=== PATIENT | male | born 1960 | race Caucasian/White ===

== ENCOUNTER → 2018-11-26 | Outpatient (CLI) | payer OTHER ==
[2018-11-26 15:59] LABS: HCT 44.8 % (39.0-53.0); HGB 14.7 gm/dL (13.0-17.5); MCH 29.6 pg (25.0-35.0); MCHC 32.8 g/dL (31.0-37.0); MCV 90.3 fL (80.0-100.0); Mean Platelet Volume 8.1; Platelet Count 225 k/uL (150-450); RBC 4.96 m/uL (4.30-5.90); RDW 14.1 % (11.5-15.5); WBC 10.2 k/uL (3.8-10.6)
[2018-11-26 16:05] LABS: ALT 23 U/L (21-72); AST 26 U/L (17-59); Albumin 4.7 g/dL (3.5-5.0); Alkaline Phosphatase 74 U/L (38-126); Anion Gap 9 mmol/L; Blood Urea Nitrogen 17 mg/dL (9-20); Carbon Dioxide 25 mmol/L (22-30); Chloride 108 mmol/L (98-107); Glucose 118 mg/dL (74-99); Potassium 4.3 mmol/L (3.5-5.1); Sodium 142 mmol/L (137-145); Total Bilirubin 0.3 mg/dL (0.2-1.3); Total Protein 7.8 g/dL (6.3-8.2)
--- NOTE | 2018-11-26 20:35 | CT ---
EXAMINATION TYPE: CT abdomen pelvis w con DATE OF EXAM: 11/26/2018 COMPARISON: NONE HISTORY: 58 year-old male abdominal distention and left lower quadrant pain. TECHNIQUE: Contiguous axial scanning of the abdomen and pelvis following administration of 100 ml Iso serenity 300 IV contrast. Delayed images through the kidneys and coronal/sagittal reconstructions perform ed. CT DLP: 1261 mGycm Automated exposure control for dose reduction was used. FINDINGS: Heart normal size without pericardial effusion. Mild dependent atelectasis in the lower lungs without pleural effusion. Tiny hiatal hernia. Liver enlarged at 20.0 cm with slightly low attenuation suggesting fatty infiltration. No focal liver lesion or biliary ductal dilatation. Portal venous system is patent. Gallbladder, adrenal glands, kidneys, spleen with tiny anterior splenule, and pancreas appear within normal limits. Moderate atherosclerotic calcifications within the infrarenal abdominal aorta and iliac arteries with out aneurysm. No dilated small bowel, free fluid, or free air. No mesenteric or retroperitoneal lymphadenopathy. Oral contrast has progressed to the upper descending colon. There is left hemicolonic diverticulosis. Focal pericolonic fat stranding centered at a lower descending colonic diverticula, refer to axial i mage 55 and coronal image 58. Prior ventral abdominal wall mesh repair along the lower abdomen and pelvis with coils demonstrated. Bladder urine distended. Prostate gland measures 5.0 cm wide. Pelvic phleboliths on the left. No abno rmal fluid collection in the pelvis or pelvic lymphadenopathy. Bones: Mild degenerative changes at the hips. There is right L5 hemisacralization with the sacrum and facet arthropathy in the lower lumbar spine. Degenerative disc disease L4-L5 with disc bulge. IMPRESSION: 1. LEFT HEMICOLECTOMY DIVERTICULOSIS WITH MILD ACUTE DIVERTICULITIS ALONG THE LOWER DESCENDING COLON. NO ABSCESS OR FREE AIR. 2. HEPATOMEGALY (20.0 CM) WITH SLIGHTLY LOW LIVER DENSITY SUGGESTING SOME DEGREE OF FATTY INFILTRATIO N. 3. TINY HIATAL HERNIA. A Mcwilliams level critical message alert has been initiated for Judith Clemons MD via the [facility] Results System on 11/26/2018 8:32 PM. This message alert has been sent to [facility] Chance via the preferences provided by the clinician for the receipt of Radiology Critical Findings. [facility] ID [id number].
== END | disposition home or self-care (01) ==
LOC: RADCTMAIN 14:54
PROVIDERS: ATTEND Internal Medicine Gastroenterology
DX: K57.32 Diverticulitis of large intestine without perforation or abscess without bleeding (principal); K57.30 Diverticulosis of large intestine without perforation or abscess without bleeding; K44.9 Diaphragmatic hernia without obstruction or gangrene; R16.0 Hepatomegaly, not elsewhere classified; K70.30 Alcoholic cirrhosis of liver without ascites; Z90.49 Acquired absence of other specified parts of digestive tract
CPT/HCPCS: 80053; 85027; 82105; 74177; Q9967

== ENCOUNTER 2020-10-06 22:00 | Emergency (ER) | payer OTHER ==
--- NOTE | 2020-10-06 23:01 | ED ---
Psych HPI - General Chief Complaint: Psychiatric Symptoms Stated Complaint: Mental health Time Seen by Provider: 10/06/20 22:36 Source: patient, police Mode of arrival: ambulatory - History of Present Illness Initial Comments: Patient's 60-year-old man who reportedly phoned police tonight and told him that he was depressed and that he wanted to donate his organs. Patient states he has been feeling suicidal for many years intermittently. States that he had been drinking tonight. MD Complaint: suicidal ideation, feels depressed -: year(s) Associated Psychiatric Symptoms: depression, suicidal ideation History of same: Yes Quality: constant Improves With: none Worsens With: none Context: recent alcohol abuse Associated Symptoms: denies other symptoms - Related Data Allergies Allergy/AdvReac Type Severity Reaction Status Date / Time No Known Allergies Allergy Verified 10/06/20 22:15 Review of Systems ROS Statement: Those systems with pertinent positive or pertinent negative responses have been documented in the HPI. ROS Other: All systems not noted in ROS Statement are negative. Constitutional: Denies: fever, chills Respiratory: Denies: cough, dyspnea Cardiovascular: Denies: chest pain, edema Gastrointestinal: Denies: abdominal pain, vomiting, diarrhea Genitourinary: Denies: dysuria, hematuria Musculoskeletal: Denies: back pain Skin: Denies: rash Neurological: Denies: headache, weakness, numbness Psychiatric: Reports: depression, suicidal thoughts. Denies: auditory hallucinations, visual hallucinations, homicidal thoughts Past Medical History Past Medical History: CVA/TIA, Skin Disorder History of Any Multi-Drug Resistant Organisms: None Reported Past Surgical History: Hernia Repair Past Psychological History: Depression Smoking Status: Current every day smoker Past Alcohol Use History: Daily Past Drug Use History: None Reported General Exam Limitations: no limitations General appearance: alert, in no apparent distress Head exam: Present: atraumatic, normocephalic Respiratory exam: Present: normal lung sounds bilaterally. Absent: respiratory distress, wheezes, rales, rhonchi, stridor Cardiovascular Exam: Present: regular rate, normal rhythm, normal heart sounds. Absent: systolic murmur, diastolic murmur, rubs, gallop GI/Abdominal exam: Present: soft. Absent: distended, tenderness, guarding Extremities exam: Present: normal inspection, normal capillary refill. Absent: pedal edema, calf tenderness Neurological exam: Present: alert Psychiatric exam: Present: depressed, suicidal ideation. Absent: agitated, anxious, flat affect, manic, homicidal ideation Skin exam: Present: warm, dry, intact, normal color. Absent: rash Course Vital Signs 10/06/20 22:10 Temperature 98.0 F Pulse Rate 96 Respiratory 18 Rate Blood Pressure 130/76 O2 Sat by Pulse 98 Oximetry Disposition Clinical Impression: Mood disorder Disposition: HOME SELF-CARE Condition: Good Instructions (If sedation given, give patient instructions): Mood Disorders (ED ) Is patient prescribed a controlled substance at d/c from ED?: No Referrals: None,Stated [Primary Care Provider] - 1-2 days
[2020-10-07 03:28] VITALS: BP 133/78; PULSE 103; RESP 16; TEMP 98.8
== END 2020-10-07 03:28 | disposition home or self-care (01) ==
LOC: EC 22:00
DX: F32.9 Major depressive disorder, single episode, unspecified (principal); R45.851 Suicidal ideations; F17.200 Nicotine dependence, unspecified, uncomplicated
CPT/HCPCS: 82075; 99285

== ENCOUNTER 2020-10-10 18:46 | Inpatient (IN) | payer MEDICAID, OTHER ==
--- NOTE | 2020-10-10 19:18 | ED ---
General Adult HPI - General Chief complaint: Psychiatric Symptoms Stated complaint: EPS eval Time Seen by Provider: 10/10/20 19:04 Source: patient, police Mode of arrival: ambulatory Limitations: no limitations - History of Present Illness Initial comments: 60-year-old male with a past medical history of CVA presents to the emergency room for suicidal thoughts. According to [employer] patient was kicked out of the residential last night. He was sleeping in the park at night yesterday. Patient states today his depression kicked in and he felt suicidal. He states that he called his mother and was going to jump into the river to kill himself. His mother called the police [place] Patient admits he did say this and does currently feel suicidal.Patient has no other complaints at this time including shortness of breath, chest pain, abdominal pain, nausea or vomiting, headache, or visual changes. - Related Data Allergies Allergy/AdvReac Type Severity Reaction Status Date / Time No Known Allergies Allergy Verified 10/10/20 18:59 Review of Systems ROS Statement: Those systems with pertinent positive or pertinent negative responses have been documented in the HPI. ROS Other: All systems not noted in ROS Statement are negative. Past Medical History Past Medical History: CVA/TIA, Skin Disorder History of Any Multi-Drug Resistant Organisms: None Reported Past Surgical History: Hernia Repair Past Psychological History: Depression Smoking Status: Current every day smoker Past Alcohol Use History: Daily Past Drug Use History: None Reported General Exam Limitations: no limitations General appearance: alert, in no apparent distress Head exam: Present: atraumatic, normocephalic, normal inspection Eye exam: Present: normal appearance, PERRL, EOMI. Absent: scleral icterus, conjunctival injection, periorbital swelling ENT exam: Present: normal exam, mucous membranes moist Neck exam: Present: normal inspection, full ROM. Absent: tenderness, meningismus, lymphadenopathy Respiratory exam: Present: normal lung sounds bilaterally. Absent: respiratory distress, wheezes, rales, rhonchi, stridor Cardiovascular Exam: Present: regular rate, normal rhythm, normal heart sounds. Absent: systolic murmur, diastolic murmur, rubs, gallop, clicks GI/Abdominal exam: Present: soft, normal bowel sounds. Absent: distended, tenderness, guarding, rebound, rigid Psychiatric exam: Present: depressed, suicidal ideation. Absent: homicidal ideation Course Vital Signs 10/10/20 18:55 Temperature 98.5 F Pulse Rate 68 Respiratory 18 Rate Blood Pressure 135/82 O2 Sat by Pulse 100 Oximetry Medical Decision Making - Medical Decision Making Patient will be admitted, agrees to sign in. - Lab Data Lab Results 10/10/20 10/10/20 Range/Units 19:36 20:10 Urine Opiates Screen Not Detected (NotDetected) Ur Oxycodone Screen Not Detected (NotDetected) Urine Methadone Screen Not Detected (NotDetected) Ur Propoxyphene Screen Not Detected (NotDetected) Ur Barbiturates Screen Not Detected (NotDetected) U Tricyclic Antidepress Not Detected (NotDetected) Ur Phencyclidine Scrn Not Detected (NotDetected) Ur Amphetamines Screen Not Detected (NotDetected) U Methamphetamines Scrn Not Detected (NotDetected) U Benzodiazepines Scrn Not Detected (NotDetected) Urine Cocaine Screen Not Detected (NotDetected) U Marijuana (THC) Screen Not Detected (NotDetected) Coronavirus (PCR) Not Detected (Not Detectd) Disposition Clinical Impression: Depression, Suicidal ideation Disposition: ADMITTED IP TO THIS HOSP Is patient prescribed a controlled substance at d/c from ED?: No Referrals: Nonstaff,Physician [Primary Care Provider] - 1-2 days Time of Disposition: 20:53
[2020-10-10 20:03] LABS: Amphetamine Screen,Urine Not Detected (NotDetected); Barbiturate Screen,Urine Not Detected (NotDetected); Benzodiazepines Screen,Urine Not Detected (NotDetected); Cocaine Screen,Urine Not Detected (NotDetected); Methadone Screen, Urine Not Detected (NotDetected); Opiate Screen,Urine Not Detected (NotDetected); Oxycodone Screen, Urine Not Detected (NotDetected); Phencyclidine Screen,Urine Not Detected (NotDetected); Tricyclic Antidepressant,Urine Not Detected (NotDetected); Urn Cannabinoid Scrn Not Detected (NotDetected)
[2020-10-10] MEDS ORDERED: MAG HYDROX/AL HYDROX/SIMETH 30 ML CUP PO PRN (21:41)
[2020-10-10] MEDS ORDERED: ACETAMINOPHEN TAB 325 MG TAB PO PRN (21:41)
[2020-10-10] MEDS ORDERED: LORazepam 1 MG TAB PO PRN (21:41)
[2020-10-10] MEDS ORDERED: MAGNESIUM HYDROXIDE 2,400 MG/10 ML CUP PO PRN (21:41)
[2020-10-10] MEDS ORDERED: LORazepam 2 MG/ML INJ IM PRN (21:44)
[2020-10-10] MEDS ORDERED: HALOPERIDOL LACTATE 5 MG/ML 1 ML VIAL IM PRN (21:47)
--- NOTE | 2020-10-11 00:29 | P.CONS ---
History of Present Illness - Reason for Consult Consult date: 10/11/20 - History of Present Illness Patient is a 60-year-old male, currently homeless with a PMH of EtOH abuse and active tobacco abuse who was brought into the emergency room due to suicidal ideation. The patient was reportedly kicked out of his long-term yesterday and had contacted his mom and told her that he was planning on killing himself by jumping in the river. She subsequently called the police who found the patient [place] depot. The patient was admitted to the mental health unit where he was seen and evaluated. He reports that he is "done with life" since he is homeless and not currently happy with his social situation. He denied any active complaints. Denied chest pain, shortness of fever, chills, nausea, vomiting, abdominal pain, diarrhea. Review of Systems Pertinent positives and negatives as discussed in HPI, a complete review of systems was performed and all other systems are negative. Past Medical History Past Medical History: CVA/TIA, Skin Disorder History of Any Multi-Drug Resistant Organisms: None Reported Past Surgical History: Hernia Repair Past Psychological History: Depression Smoking Status: Current every day smoker Past Alcohol Use History: Daily Past Drug Use History: None Reported Medications and Allergies Home Medications Medication Instructions Recorded Confirmed Type No Known Home Medications 10/10/20 10/10/20 History Allergies Allergy/AdvReac Type Severity Reaction Status Date / Time No Known Allergies Allergy Verified 10/10/20 21:01 Physical Exam Vitals: Vital Signs Temp Pulse Pulse Resp BP BP Pulse Ox 10/10/20 22:39 99.1 F 64 15 134/98 10/10/20 18:55 98.5 F 68 18 135/82 100 Intake and Output 10/10/20 10/10/20 10/11/20 14:59 22:59 06:59 Other: Weight 77.111 kg General: non toxic, no distress, appears at stated age, normal weight Derm: no unusual rashes/lesions no unusual ecchymoses, warm, dry Head: atraumatic, normocephalic, symmetric Eyes: EOMI, no lid lag, anicteric sclera, pupils equal round reactive to light ENT: Nose and ears atraumatic, no thrush, no pharyngeal erythema Neck: No thyromegaly, no cervical lymphadenopathy, trachea midline, supple Mouth: no lip lesion, mucus membranes moist Cardiovascular: S1S2 reg, no murmur, positive posterior tibial pulse bilateral, no edema, capillary refill less than 2 seconds Lungs: CTA bilateral, no rhonchi, no rales , no accessory muscle use Abdominal: soft, nontender to palpation, no guarding, no appreciable organomegaly, normal bowel sounds Ext: no gross muscle atrophy, muscle strength 5 out of 5 in all 4 extremities grossly, no contractures, Neuro: CN II-XI grossly intact, light touch intact all 4 extremities, finger to nose within normal limits, Psych: Alert, oriented, depressed affect Assessment and Plan Plan: Tobacco and EtOH abuse -Advised on the importance of cessation Depression with suicidal ideation -As per psychiatry Thank you for allowing us to participate in the care of this patient. We will follow peripherally. Do not hesitate to contact us with questions. Someone can be reached from the [facility] hospitalist group at all hours of the day at [phone].
[2020-10-11] MEDS: NICOTINE 14MG/24HR PATCH TRANSDERM SCH (08:43)
--- NOTE | 2020-10-11 11:08 | P.HP ---
Psychiatric H&P - . H&P Date: 10/11/20 History & Physical: Allergies Allergy/AdvReac Type Severity Reaction Status Date / Time No Known Allergies Allergy Verified 10/10/20 21:01 Vital Signs Temp 99.1 F 10/10/20 22:39 Pulse 64 10/10/20 22:39 Resp 15 10/10/20 22:39 BP 134/98 10/10/20 22:39 Pulse Ox 100 10/10/20 18:55 Intake & Output 10/10/20 10/11/20 10/11/20 18:59 06:59 18:59 Weight 77.111 kg Laboratory Last Values Urine Opiates Screen Not Detected (NotDetected) 10/10/20 19:36 Ur Oxycodone Screen Not Detected (NotDetected) 10/10/20 19:36 Urine Methadone Screen Not Detected (NotDetected) 10/10/20 19:36 Ur Propoxyphene Screen Not Detected (NotDetected) 10/10/20 19:36 Ur Barbiturates Screen Not Detected (NotDetected) 10/10/20 19:36 U Tricyclic Antidepress Not Detected (NotDetected) 10/10/20 19:36 Ur Phencyclidine Scrn Not Detected (NotDetected) 10/10/20 19:36 Ur Amphetamines Screen Not Detected (NotDetected) 10/10/20 19:36 U Methamphetamines Scrn Not Detected (NotDetected) 10/10/20 19:36 U Benzodiazepines Scrn Not Detected (NotDetected) 10/10/20 19:36 Urine Cocaine Screen Not Detected (NotDetected) 10/10/20 19:36 U Marijuana (THC) Screen Not Detected (NotDetected) 10/10/20 19:36 Coronavirus (PCR) Not Detected (Not Detectd) 10/10/20 20:10 10/11/20 10:50 Chief complaint: Patient stated that his mother called the police and police picked him up and brought him to the hospital. He stated his mother thought that he was going to harm himself. History of present illness: This patient is a severely depressed and wanted to jump in the river. He left the house and was picked up by the police. He stated I am all done, and don't want to be here anymore. He stated he has many medical problems and nothing can be done to alleviate his chronic pain and has sexual problems. He feels hopeless and is extremely depressed. He is unable to sleep. He stated he has lived with his life and now it is time for him to go. Past history: This patient stated that he has been in the emergency room many different times but never got admitted in a psychiatric hospital as an inpatient. He denied ever being in a psychiatric hospital ever. Family history: He stated he lives with his mother who is 85 years old. He has 3 sisters who are still alive. He has 2 brothers who are still alive. His father is . He is and has 2 children. He stated that his has nothing to do with him. She changes her phone numbers frequently. He denies any family history of mental illness but then stated that one of his uncles committed suicide successfully. He denies any history of substance abuse in the family. Medical history: He stated he has been told that he has cirrhosis of liver. He stated that that he has been told that it will not get worse if he stops drinking. He stated he has a mesh in the pelvis that nobody can remove. He stated he has consulted many surgeons but nobody wants to remove the mesh. He stated it hurts and he is walking around as if he is in pain. He stated chronic pain has taken his sex life away from him and he is done and there is no purpose for him to live. Social history: He stated he finished 10th grade education and has been working on [employer]. He stated he has done this job for his whole life. Substance abuse history: He stated he used to drink alcohol a lot. He stated yesterday he had 2 drinks in the morning. He denies use of any drugs or marijuana. History of suicide and homicide: He stated he has made multiple suicidal attempts but he was never admitted to Hospital. He denies any history of assaultive behavior. Legal history: He denies having any legal problems. ALLERGIES and ADR: He denies any history of being ALLERGIC to anything or having adverse drug reactions with any medication. Mental status examination: This patient appears to be of his stated age he has adequate speech, language and communication skills. He speaks in a very low monotonous voice. He is alert and oriented to time place and person. He walks very slowly and stated that he is in constant pain. His behavior is cooperative. His mood is depressed and his affect is labile. He denies any auditory or visual or any other types of hallucinations. He denies any delusions. He does not have any loose associations of flight of ideas or any disorder of thought process. His impulse control is poor. He has no insight into his problems and his judgment is impaired. Diagnostic impression: Major depression recurrent severe Alcohol dependence Chronic pain Cirrhosis of liver History of abdominal mesh Treatment plan: I will start him on antidepressants. He will be encouraged to participate in unit activities. He will be monitored in the milieu.
[2020-10-11 11:20] LABS: Basophils % (A) 0 %; Eosinophils # (A) 0.2 k/uL (0-0.7); Eosinophils % (A) 2 %; HCT 42.7 % (39.0-53.0); HGB 14.6 gm/dL (13.0-17.5); Lymphocytes # (A) 2.7 k/uL (1.0-4.8); Lymphocytes % (A) 32 %; MCH 32.3 pg (25.0-35.0); MCHC 34.3 g/dL (31.0-37.0); MCV 94.1 fL (80.0-100.0); Monocytes # (A) 0.5 k/uL (0-1.0); Monocytes % (A) 6 %; Neutrophils % (A) 59 %; Platelet Count 175 k/uL (150-450); RBC 4.53 m/uL (4.30-5.90); RDW 14.2 % (11.5-15.5); WBC 8.5 k/uL (3.8-10.6)
[2020-10-11 11:21] LABS: ALT 21 U/L (4-49); AST 30 U/L (17-59); African American GFR (CKD) >90 (>60 ml/min/1.73 sqM); Albumin 4.4 g/dL (3.5-5.0); Alkaline Phosphatase 71 U/L (38-126); Anion Gap 7 mmol/L; Bilirubin,Unconjugated 0.8 mg/dL (0.0-1.1); Blood Urea Nitrogen 15 mg/dL (9-20); Calcium 9.6 mg/dL (8.4-10.2); Carbon Dioxide 29 mmol/L (22-30); Chloride 103 mmol/L (98-107); Cholesterol 215 mg/dL (<200); Glucose 89 mg/dL (74-99); HDL Cholesterol 85 mg/dL (40-60); LDL Cholesterol,Calculated 107 mg/dL (0-99); Non-African American GFR(CKD) >90 (>60 ml/min/1.73 sqM); Potassium 4.4 mmol/L (3.5-5.1); Sodium 139 mmol/L (137-145); Total Bilirubin 0.8 mg/dL (0.2-1.3); Total Protein 7.7 g/dL (6.3-8.2); Triglycerides 117 mg/dL (<150)
[2020-10-11 22:48] LABS: Hemoglobin A1C 5.1 % (4.0-6.0)
[2020-10-12] MEDS: NICOTINE 14MG/24HR PATCH TRANSDERM SCH (08:41)
[2020-10-12] MEDS ORDERED: SERTRALINE 50 MG TAB PO SCH (09:00)
[2020-10-12] MEDS ORDERED: MELATONIN 3 MG TABLET PO PRN (11:17)
--- NOTE | 2020-10-12 11:26 | P.PN ---
Progress Note - Text Progress Note Date: 10/12/20 Interval History: Patient was seen wandering the hallways and was directable and agreeable to hillary carreon with poem writer in the office. Patient claims that he is in the hospital for about 2 days now and claims multiple times during the interview "there is nothing you can do for me" and spoke vaguely about suicidal thoughts and also alluded to the fact that "when the pain comes that bad men there is nothing anybody can do for me and I'll just end my life and he can't stop me". He threatened suicide outside of the hospital several times during the conversation. He claims that he has been feeling depressed and was reluctant however agreed to take medications while on the unit. He states that "my took everything from me" and claims that now he is homeless. He states that he does drink alcohol regularly however did not mention how many drinks. He denied any current withdrawal symptoms or any history of DTs in the past. He states that he was able to sleep fairly last night. He states that he has a fair appetite. He spoke about his pain in his abdomen and pelvis area and states ava t the surgeon that perform this on him over 10 years ago moved to [place] and he cannot locate her and states that "no one will operate on me" and claims that there has been urogenital issues that he has been dealing with which has been painful and embarrasing for him. At this time patient denies any current suicidal or homical ideations, intent or plan. Patient denies any auditory, visual hallucinations and denies any paranoia or delusions. Patient denies any side effects from the medications and has been compliant with meds. Mental Status Exam: General Appearance: Patient appears to be stated age is alert, directable, and attempts to be cooperative. Long christensen and appears to be disheveled. Behavior: Patient is calmly seated without any agitated behavior. Speech: Patient's speech is fluent and nonpressured. Perseverates. Mood/Affect: Mood is depressed, affect is congruent and constricted. Suicidality/Homicidality: Patient denies having any suicidal or homicidal ideation intent or plan. Perceptions: Patient denies any visual hallucinations and denies any auditory hallucinations Though content/process: He perseverates on his urogenital symptoms, discharge and future thoughts about suicide once he leaves the hospital. Memory and concentration: AOX3, grossly intact for the purposes of this session Judgment and insight: Poor Assessment Major depressive disorder, recurrent severe Alcohol dependence Chronic pain Nicotine dependence Plan: -Patient continues to meet criteria for inpatient psychiatric admission for symptom stabilization and safety. Patient has signed adult voluntary form and medication consent and was placed in patient's chart. -Medications: switched from zoloft to cymbalta 30mg qhs for mood/anxiety/pain. melatonin 3mg qhs prn for insomnia -CIWA protocol for etoh w/d with prn Ativan. continue to monitor vitals. -When necessary Ativan and Haldol for agitation/aggression. -NRT - nicotine patch -SW on board for discharge planning. Encouraged the patient to participate in milieu.
[2020-10-12] MEDS: DULoxetine HCL 30 MG CAPSULE.DR PO SCH (21:52)
[2020-10-13] MEDS: NICOTINE 14MG/24HR PATCH TRANSDERM SCH (08:51)
--- NOTE | 2020-10-13 10:57 | P.PN ---
Progress Note - Text Progress Note Date: 10/13/20 Interval History: Patient was seen wandering the hallways and was directable and agreeable to hillary carreon with instructional writer in the office. Patient claims that he did not sleep well last night as he states that his roommate was very loud with his snoring and kept on waking him up. He was requesting to have a different room for tonight. He continues to speak about his abdomen and pelvis area and how "when the pain calms it calms and it's bad". He continues to be preoccupied with his pain however when offered pain medications she declined. He claims that he would like to go to [facility] upon discharge to see if he can get an appointment with a surgeon there. He spoke briefly about possible suicide after he is discharged and stated once again "if I'm getting into it he can't stop me". He was less preoccupied with his suicidal thoughts today however and denied any current plans or intents while in the hospital. He states that he has a fair appetite. At this time patient denies any current suicidal or homical ideations, intent or plan. Patient denies any auditory, visual hallucinations and denies any paranoia or delusions. Patient denies any side effects from the medications and has been compliant with meds. He claims that his mood is mildly improved since yesterday. Mental Status Exam: General Appearance: Patient appears to be stated age is alert, directable, and attempts to be cooperative. Long christensen and appears to be disheveled. Behavior: Patient is calmly seated without any agitated behavior. Speech: Patient's speech is fluent and nonpressured. Perseverates. Mood/Affect: Mood is improving mildly, affect is congruent Suicidality/Homicidality: Patient denies having any suicidal or homicidal ideation intent or plan. Perceptions: Patient denies any visual hallucinations and denies any auditory hallucinations Though content/process: He perseverates on his urogenital symptoms, discharge and future thoughts about suicide once he leaves the hospital, however this has been improving mildly and less frequent. Memory and concentration: AOX3, grossly intact for the purposes of this session Judgment and insight: Poor, improving mildly Assessment Major depressive disorder, recurrent severe Alcohol dependence Chronic pain Nicotine dependence Plan: -Patient continues to meet criteria for inpatient psychiatric admission for symptom stabilization and safety. Patient has signed adult voluntary form and medication consent and was placed in patient's chart. -Medications: Continue with cymbalta 30mg qhs for mood/anxiety/pain. melatonin 3mg qhs prn for insomnia. I added trazodone 25 mg daily at bedtime for insomnia/mood. -CIWA protocol for etoh w/d with prn Ativan. continue to monitor vitals. We'll d/c tomorrow. -When necessary Ativan and Haldol for agitation/aggression. -NRT - nicotine patch -SW on board for discharge planning. Encouraged the patient to participate in milieu. likely discharge in 1-2 days.
[2020-10-13] MEDS ORDERED: traZODone HCL 50 MG TAB PO SCH (21:00)
[2020-10-13] MEDS: traZODone HCL 50 MG TAB PO SCH (21:11)
[2020-10-13] MEDS: DULoxetine HCL 30 MG CAPSULE.DR PO SCH (21:11)
[2020-10-14] MEDS: NICOTINE 14MG/24HR PATCH TRANSDERM SCH (08:59)
--- NOTE | 2020-10-14 10:10 | P.PN ---
Progress Note - Text Progress Note Date: 10/14/20 Interval History: Patient was seen today sitting in group and was directable and agreeable to hillary carreon with designer/writer in the office. Patient claims that he slept better last night with the medications but continues to state that he does not have sleeping difficulties and minimizing his sx. he continues to be focused on his pain and described it several times during the conversation and claims that "no matter what you give me keep on coming back and there is nothing you can do to stop it". He claims that he would like to go to [place] once he is discharged states that his mother will be here to pick him up and take him down there. He states that he has to go get new glasses because he is not able to see very well. He also claims that he would like to go back to [place] to be near his sister and eventually get a tent and go [place]. Today he did not speak about any suicidal thoughts or plans once he is discharged. He states that he has a fair appetite. At this time patient denies any current suicidal or homical ideations, intent or plan. Patient denies any auditory, visual hallucinations and denies any paranoia or delusions. Patient denies any side effects from the medications and has been compliant with meds. He claims that his mood is mildly improved since yesterday. Mental Status Exam: General Appearance: Patient appears to be stated age is alert, directable, and attempts to be cooperative. Long christensen and appears to be disheveled. Behavior: Patient is calmly seated without any agitated behavior. More cooperative today Speech: Patient's speech is fluent and nonpressured. Perseverates. Mood/Affect: Mood is improving mildly, affect is congruent Suicidality/Homicidality: Patient denies having any suicidal or homicidal ideation intent or plan. Perceptions: Patient denies any visual hallucinations and denies any auditory hallucinations Though content/process: He perseverates on his urogenital symptoms, continues to ramble and is tangential/circumstantial. Memory and concentration: AOX3, grossly intact for the purposes of this session Judgment and insight: improving mildly Assessment Major depressive disorder, recurrent severe Alcohol dependence Chronic pain Nicotine dependence Plan: -Patient continues to meet criteria for inpatient psychiatric admission for symptom stabilization and safety. Patient has signed adult voluntary form and medication consent and was placed in patient's chart. -Medications: Continue with cymbalta 30mg qhs for mood/anxiety/pain. melatonin 3mg qhs prn for insomnia. continue with trazodone 25 mg daily at bedtime for insomnia/mood. -When necessary Ativan and Haldol for agitation/aggression. -NRT - nicotine patch -SW on board for discharge planning. Encouraged the patient to participate in milieu. likely discharge tomorrow.
[2020-10-14] MEDS: PANTOPRAZOLE SODIUM 40 MG GRANULE PKT PO SCH (10:24)
[2020-10-14] MEDS: traZODone HCL 50 MG TAB PO SCH (21:16)
[2020-10-14] MEDS: DULoxetine HCL 30 MG CAPSULE.DR PO SCH (21:17)
[2020-10-15 06:56] VITALS: BP 117/63; PULSE 80; RESP 18; TEMP 98.3
[2020-10-15] MEDS: PANTOPRAZOLE SODIUM 40 MG GRANULE PKT PO SCH (08:30)
[2020-10-15] MEDS: NICOTINE 14MG/24HR PATCH TRANSDERM SCH (08:30)
--- NOTE | 2020-10-15 10:11 | P.DS ---
Providers Date of admission: 10/10/20 21:25 Expected date of discharge: 10/15/20 Attending physician: Osbaldo Sarmiento MD Consults: 10/10/20 21:41 Consult Physician Routine Consulting Provider: Joy Physician Consult Reason/Comments: medical management Do you want consulting provider notified?: Yes Primary care physician: Physician Nonstaff - Discharge Diagnosis(es) (1) Major depressive disorder, recurrent severe without psychotic features Current Visit: Yes Status: Acute Priority: High (2) Alcohol dependence Current Visit: Yes Status: Acute Priority: Medium (3) Chronic pain Current Visit: Yes Status: Acute Priority: Medium (4) Nicotine dependence Current Visit: Yes Status: Acute Priority: Low Hospital Course: Admission HPI: Admission note was completed by Dr. Solis "Patient stated that his mother called the police and police picked him up and brought him to the hospital. He stated his mother thought that he was going to harm himself. This patient is a severely depressed and wanted to jump in the river. He left the house and was picked up by the police. He stated I am all done, and don't want to be here anymore. He stated he has many medical problems and nothing can be done to alleviate his chronic pain and has sexual problems. He feels hopeless and is extremely depressed. He is unable to sleep. He stated he has lived with his life and now it is time for him to go. This patient stated that he has been in the emergency room many different times but never got admitted in a psychiatric hospital as an inpatient. He denied ever being in a psychiatric hospital ever."" Hospital course: Upon admission to the unit patient was initially depressed and having suicidal thoughts. Patient was however directable and agreeable to commence treatment and signed adult voluntary form. Patient got along well with other patients on the unit and followed unit protocol. Patient was compliant with the medications and denied any side effects throughout hospital course. Patient was started on Cymbalta 30 mg daily at bedtime for mood/anxiety/pain. Patient was also started on melatonin 3 mg daily at bedtime for insomnia which she did not take. He was also started on trazodone 25 mg daily at bedtime for insomnia/mood. Patient spoke of his stressors and engaged in therapy both group and individual. Patient was also seen by medical team for history and physical exam. Throughout the course of the hospitalization patient gradually improved with regards to mood, anxiety, pain, sleep and became more future oriented with improved insight and judgment. On the day of discharge patient denied any suicidal or homicidal ideations intent or plan denied any auditory or visual hallucinations. Patient endorsed wanting to live for his future and his family. The patient denied any access to guns or weapons, stated that his ex- took his guns away from him. Patient denied any paranoia and did not endorse any delusions. Patient does have a significant history of substance abuse and was counseled on abstaining from all substances including alcohol and marijuana. Patient was offered however declined inpatient substance-abuse rehab. Patient was not interested in outpatient substance use treatment. Patient was also counseled on the medications and need for regular compliance and was encouraged to follow-up with their outpatient appointment for mental health and also for primary care. Prior to discharge a family meeting will be arranged by social services manager to answer any questions and ensure safety upon discharge. Mental status exam: General Appearance: Patient appears to have a christensen, wearing street clothing, stated age is alert, pleasant, and cooperative. Patient is in no acute distress and has improved hygiene and grooming Behavior: Patient is calmly seated without any agitated behavior. Speech: Patient's speech is fluent and nonpressured. Mood/Affect: Patient reports their mood is "better", affect is congruent and euthymic. Suicidality/Homicidality: Patient denies having any suicidal or homicidal ideation intent or plan. Perceptions: Patient denies any auditory or visual hallucinations. Though content/process: There is no evidence of any delusional thought content and thought process is linear and goal-directed. more future oriented Memory and concentration: AOX3, grossly intact for the purposes of this session. Can spell "WORLD" backwards correctly. Judgment and insight: chronically poor, however has improved with guarded prognosis Impression: Major depressive disorder recurrent severe without psychotic features Alcohol dependence Chronic pain Nicotine dependence Plan: -Continue with discharge today as patient has improved and stabilized psychiatrically and is not currently an imminent threat to himself and/or others. Patient will remain at chronically elevated risk for harm to self and/or others due to his polysubstance abuse. -Continue medications: Cymbalta 30 mg daily at bedtime for mood/anxiety/pain, trazodone 25 mg daily at bedtime for insomnia/mood. -Patient was counseled on the need for medication compliance and appropriate follow-up at mental health and also primary care for medical issues. Patient verbalized understanding and agreed. -Social work to arrange for and conduct family meeting to ensure safety upon discharge and answer any questions/concerns. Social work also to arrange for patients follow up appointments for psychiatric care along with follow up with primary care provider. -Patient counseled on abstaining from recreational drugs and marijuana and alcohol. Was informed/educated on the adverse effects on their physical and mental health. Patient verbally agreed and understood. Patient was offered substance abuse treatment however declined at this time. -Patient was instructed to return to the hospital or seek immediate medical care if their psychiatric or medical symptoms do worsen or reoccur. Allergies Allergy/AdvReac Type Severity Reaction Status Date / Time No Known Allergies Allergy Verified 10/10/20 21:01 Laboratory Results WBC 8.5 k/uL (3.8-10.6) 10/11/20 10:40 RBC 4.53 m/uL (4.30-5.90) 10/11/20 10:40 Hgb 14.6 gm/dL (13.0-17.5) 10/11/20 10:40 Hct 42.7 % (39.0-53.0) 10/11/20 10:40 MCV 94.1 fL (80.0-100.0) 10/11/20 10:40 MCH 32.3 pg (25.0-35.0) 10/11/20 10:40 MCHC 34.3 g/dL (31.0-37.0) 10/11/20 10:40 RDW 14.2 % (11.5-15.5) 10/11/20 10:40 Plt Count 175 k/uL (150-450) 10/11/20 10:40 MPV 8.0 10/11/20 10:40 Neutrophils % 59 % 10/11/20 10:40 Lymphocytes % 32 % 10/11/20 10:40 Monocytes % 6 % 10/11/20 10:40 Eosinophils % 2 % 10/11/20 10:40 Basophils % 0 % 10/11/20 10:40 Neutrophils # 5.0 k/uL (1.3-7.7) 10/11/20 10:40 Lymphocytes # 2.7 k/uL (1.0-4.8) 10/11/20 10:40 Monocytes # 0.5 k/uL (0-1.0) 10/11/20 10:40 Eosinophils # 0.2 k/uL (0-0.7) 10/11/20 10:40 Basophils # 0.0 k/uL (0-0.2) 10/11/20 10:40 Sodium 139 mmol/L (137-145) 10/11/20 10:40 Potassium 4.4 mmol/L (3.5-5.1) 10/11/20 10:40 Chloride 103 mmol/L (98-107) 10/11/20 10:40 Carbon Dioxide 29 mmol/L (22-30) 10/11/20 10:40 Anion Gap 7 mmol/L 10/11/20 10:40 BUN 15 mg/dL (9-20) 10/11/20 10:40 Creatinine 0.84 mg/dL (0.66-1.25) 10/11/20 10:40 Est GFR (CKD-EPI)AfAm >90 (>60 ml/min/1.73 sqM) 10/11/20 10:40 Est GFR (CKD-EPI)NonAf >90 (>60 ml/min/1.73 sqM) 10/11/20 10:40 Glucose 89 mg/dL (74-99) 10/11/20 10:[address] Glu mg/dL 100 10/11/20 10:40 Hemoglobin A1c 5.1 % (4.0-6.0) 10/11/20 10:40 Calcium 9.6 mg/dL (8.4-10.2) 10/11/20 10:40 Total Bilirubin 0.8 mg/dL (0.2-1.3) 10/11/20 10:40 Conjugated Bilirubin 0.0 mg/dL (0.0-0.3) 10/11/20 10:40 Unconjugated Bilirubin 0.8 mg/dL (0.0-1.1) 10/11/20 10:40 Delta Bilirubin 0.0 mg/dL (0.0-0.2) 10/11/20 10:40 AST 30 U/L (17-59) 10/11/20 10:40 ALT 21 U/L (4-49) 10/11/20 10:40 Alkaline Phosphatase 71 U/L (38-126) 10/11/20 10:40 Total Protein 7.7 g/dL (6.3-8.2) 10/11/20 10:40 Albumin 4.4 g/dL (3.5-5.0) 10/11/20 10:40 Triglycerides 117 mg/dL (<150) 10/11/20 10:40 Cholesterol 215 mg/dL (<200) H 10/11/20 10:40 LDL Cholesterol, Calc 107 mg/dL (0-99) H 10/11/20 10:40 HDL Cholesterol 85 mg/dL (40-60) H 10/11/20 10:40 TSH 0.690 mIU/L (0.465-4.680) 10/11/20 10:40 Urine Opiates Screen Not Detected (NotDetected) 10/10/20 19:36 Ur Oxycodone Screen Not Detected (NotDetected) 10/10/20 19:36 Urine Methadone Screen Not Detected (NotDetected) 10/10/20 19:36 Ur Propoxyphene Screen Not Detected (NotDetected) 10/10/20 19:36 Ur Barbiturates Screen Not Detected (NotDetected) 10/10/20 19:36 U Tricyclic Antidepress Not Detected (NotDetected) 10/10/20 19:36 Ur Phencyclidine Scrn Not Detected (NotDetected) 10/10/20 19:36 Ur Amphetamines Screen Not Detected (NotDetected) 10/10/20 19:36 U Methamphetamines Scrn Not Detected (NotDetected) 10/10/20 19:36 U Benzodiazepines Scrn Not Detected (NotDetected) 10/10/20 19:36 Urine Cocaine Screen Not Detected (NotDetected) 10/10/20 19:36 U Marijuana (THC) Screen Not Detected (NotDetected) 10/10/20 19:36 Coronavirus (PCR) Not Detected (Not Detectd) 10/10/20 20:10 Vital Signs Temp 98.3 F 10/15/20 06:38 Pulse 80 10/15/20 06:38 Resp 18 10/15/20 06:38 BP 117/63 10/15/20 06:38 Pulse Ox 100 10/10/20 18:55 Patient Condition at Discharge: Stable Plan - Discharge Summary New Discharge Prescriptions: New DULoxetine HCL [Cymbalta] 30 mg PO HS 30 Days capsule. traZODone HCL [Desyrel] 25 mg PO HS PRN 30 Days tab PRN Reason: Insomnia Nicotine 14Mg/24Hr Patch [Habitrol] 1 patch TRANSDERM DAILY 14 Days patch Pantoprazole Sodium [Protonix] 40 mg PO AC-BRKFST 30 Days tablet. Discharge Medication List DULoxetine HCL [Cymbalta] 30 mg PO HS 30 Days capsule. 10/15/20 [Rx] Nicotine 14Mg/24Hr Patch [Habitrol] 1 patch TRANSDERM DAILY 14 Days patch 10/15/20 [Rx] Pantoprazole Sodium [Protonix] 40 mg PO AC-BRKFST 30 Days tablet. 10/15/20 [Rx] traZODone HCL [Desyrel] 25 mg PO HS PRN 30 Days tab 10/15/20 [Rx] Follow up Appointment(s)/Referral(s): [facility] [Outside] - 10/22/20 11:30 am (Krystin Arreola) Nonstaff,Physician [Primary Care Provider] - 1-2 days Activity/Diet/Wound Care/Special Instructions: Activity and diet as tolerated. Avoid the use of street drugs and alcohol. Take all medications as prescribed. When you are in need of refills on your medications please contact your medical provider and/or outpatient psychiatrist to have this done. Please go to scheduled outpatient appointment for aftercare treatment. If symptoms return or become worse, call the crisis line at and/or go to the nearest emergency room for evaluation. Discharge Disposition: OTHER INSTITUTION NOT DEFINED
== END 2020-10-15 14:25 | disposition other institution (70) | DRG 885 ==
LOC: EC 18:46 → 3MHU 21:25
PROVIDERS: ADMIT Psychiatry & Neurology Psychiatry; ATTEND Psychiatry & Neurology Psychiatry
DX: F33.2 Major depressive disorder, recurrent severe without psychotic features (principal); R45.851 Suicidal ideations; F10.20 Alcohol dependence, uncomplicated; F17.200 Nicotine dependence, unspecified, uncomplicated; F41.9 Anxiety disorder, unspecified; G47.00 Insomnia, unspecified; G89.29 Other chronic pain; K74.60 Unspecified cirrhosis of liver; Z59.0 Homelessness; Z79.899 Other long term (current) drug therapy; Z86.73 Personal history of transient ischemic attack (TIA), and cerebral infarction without residual deficits; Z20.822 Contact with and (suspected) exposure to COVID-19
CPT/HCPCS: 80053; 80061; 80306; 82075; 82248; 83036; 84443; 85025; 87635; 99285

== ENCOUNTER 2020-10-25 20:21 | Inpatient (IN) | payer MEDICAID, OTHER ==
--- NOTE | 2020-10-25 21:34 | ED ---
Psych HPI - General Chief Complaint: Psychiatric Symptoms Stated Complaint: petition Time Seen by Provider: 10/25/20 20:58 Source: patient, police Mode of arrival: wheelchair Limitations: no limitations - History of Present Illness MD Complaint: suicidal ideation, feels depressed -: year(s) Associated Psychiatric Symptoms: depression, suicidal ideation History of same: Yes Quality: constant Improves With: none Context: recent alcohol abuse - Related Data Previous Rx's Medication Instructions Recorded DULoxetine HCL [Cymbalta] 30 mg PO HS 30 Days capsule. 10/15/20 Nicotine 14Mg/24Hr Patch [Habitrol] 1 patch TRANSDERM DAILY 14 Days 10/15/20 patch Pantoprazole Sodium [Protonix] 40 mg PO AC-BRKFST 30 Days 10/15/20 tablet. traZODone HCL [Desyrel] 25 mg PO HS PRN 30 Days tab 10/15/20 Allergies Allergy/AdvReac Type Severity Reaction Status Date / Time No Known Allergies Allergy Verified 10/25/20 21:39 Review of Systems ROS Statement: Those systems with pertinent positive or pertinent negative responses have been documented in the HPI. ROS Other: All systems not noted in ROS Statement are negative. Constitutional: Denies: fever Respiratory: Denies: cough, dyspnea Cardiovascular: Denies: chest pain, palpitations Gastrointestinal: Reports: abdominal pain (Chronic abdominal pain). Denies: vomiting, diarrhea Genitourinary: Denies: dysuria, hematuria Musculoskeletal: Denies: back pain Skin: Denies: rash Neurological: Denies: headache, weakness, numbness Past Medical History Past Medical History: CVA/TIA, Skin Disorder History of Any Multi-Drug Resistant Organisms: None Reported Past Surgical History: Hernia Repair, Orthopedic Surgery Additional Past Surgical History / Comment(s): rt arm, lt wrist Past Psychological History: Depression Smoking Status: Current every day smoker Past Alcohol Use History: Daily Past Drug Use History: None Reported General Exam Limitations: no limitations General appearance: alert, in no apparent distress Head exam: Present: atraumatic, normocephalic Eye exam: Present: normal appearance. Absent: scleral icterus, conjunctival injection Respiratory exam: Present: normal lung sounds bilaterally. Absent: respiratory distress, wheezes, rales, rhonchi, stridor Cardiovascular Exam: Present: regular rate, normal rhythm, normal heart sounds. Absent: systolic murmur, diastolic murmur, rubs, gallop GI/Abdominal exam: Present: soft. Absent: distended, tenderness, guarding, rebound, rigid Extremities exam: Present: normal inspection, normal capillary refill. Absent: pedal edema, calf tenderness Back exam: Present: normal inspection. Absent: CVA tenderness (R), CVA tenderness (L) Neurological exam: Present: alert Psychiatric exam: Present: depressed, suicidal ideation. Absent: agitated, anxious, flat affect, manic, homicidal ideation Skin exam: Present: warm, dry, intact, normal color. Absent: rash Course Vital Signs 10/25/20 20:43 Temperature 97.4 F L Pulse Rate 94 Respiratory 20 Rate Blood Pressure 118/71 O2 Sat by Pulse 97 Oximetry Disposition Clinical Impression: Mood disorder Disposition: ADMITTED IP TO THIS HOSP Condition: Fair Is patient prescribed a controlled substance at d/c from ED?: No Referrals: Nonstaff,Physician [Primary Care Provider] - 1-2 days
[2020-10-26 00:11] VITALS: RESP 16
[2020-10-26] MEDS ORDERED: MAG HYDROX/AL HYDROX/SIMETH 30 ML CUP PO PRN (01:46)
[2020-10-26] MEDS ORDERED: LORazepam 1 MG TAB PO PRN (01:46)
[2020-10-26] MEDS ORDERED: ACETAMINOPHEN TAB 325 MG TAB PO PRN (01:46)
[2020-10-26] MEDS ORDERED: MAGNESIUM HYDROXIDE 2,400 MG/10 ML CUP PO PRN (01:46)
[2020-10-26] MEDS ORDERED: LORazepam 2 MG/ML INJ IM PRN (02:20)
[2020-10-26] MEDS ORDERED: HALOPERIDOL LACTATE 5 MG/ML 1 ML VIAL IM PRN (02:23)
[2020-10-26] MEDS ORDERED: haloperidoL 5 MG TAB PO PRN (02:23)
--- NOTE | 2020-10-26 02:29 | P.PN ---
Progress Note - Text Progress Note Date: 10/26/20 notified regarding new consult however, patient currently heavily sedated and sleeping
[2020-10-26] MEDS: NICOTINE 14MG/24HR PATCH TRANSDERM SCH (07:44)
[2020-10-26] MEDS: DULoxetine HCL 30 MG CAPSULE.DR PO SCH (09:46)
--- NOTE | 2020-10-26 09:55 | P.HP ---
Psychiatric H&P - . H&P Date: 10/26/20 History & Physical: Allergies Allergy/AdvReac Type Severity Reaction Status Date / Time No Known Allergies Allergy Verified 10/26/20 02:29 Vital Signs Temp 98.3 F 10/26/20 02:33 Pulse 95 10/26/20 02:33 Resp 16 10/26/20 02:33 BP 118/73 10/26/20 02:33 Pulse Ox 97 10/26/20 00:10 Intake & Output 10/25/20 10/26/20 10/26/20 18:59 06:59 18:59 Weight 77.167 kg Laboratory Last Values Coronavirus (PCR) Not Detected (Not Detectd) 10/26/20 00:10 10/26/20 09:35 IDENTIFYING DATA: Patient is a 60-year-old male who is currently homeless HPI: Patient presented to the hospital yesterday on a petition by police. According to petition patient had made statements to his mother Valentine saying that he wanted to commit suicide by jumping into the river. Patient also made comments according to the petition that stated "he won't let me before earlier gun" and also "I'm going to give up". Patient was recently psychiatrically hospitalized at the end of September 2020 for similar depressive and suicidal statements. Patient was previously discharged on Cymbalta and trazodone as needed. Patient was seen wandering the hallways and agreeable to speak to contract technical writer. He appears to have poor hygiene and grooming. He also displayed poor insight and judgment into his condition and was fairly guarded and evasive about why he is in the hospital. He states that "my mother made it all up" and claims that she did not make any suicidal statements towards her. He states that he was just working at a new job however was not able to tell contract technical writer what the job was and states that he got kicked out of the hotel room that he was sharing with another friend on Monday. He states that his mother with him in the hospital because "she is worried because I am walking the streets". He was minimizing his need for treatment and states that "your medication is experiencing an elderly". He spoke significantly about his pain that has been chronic. He claims to have poor sleep at night and fair appetite. He states that his mood is depressed. Patient denies any current suicidal or homicidal ideations intent or plan. At this time patient denies any auditory or visual hallucinations. Patient denies any flight of ideas racing thoughts and increased in goal directed behavior. Patient admits to using no recreational drugs however does consume alcohol regularly. PAST PSYCHIATRIC HISTORY: Patient has a psychiatric history significant for depression. Patient was previously on trazodone when necessary and Cymbalta. Patient was previously psychiatrically hospitalized in late September 2020 on the mental health unit. Patient denies any psychiatric outpatient follow-up. Patient denies any history of suicide attempts in the past. Family history: He stated that he is currently homeless. He has 3 sisters who are still alive. He has 2 brothers who are still alive. His father is . He is not and has 2 children. He stated that his has nothing to do with him. She changes her phone numbers frequently. He denies any family history of mental illness but then stated that one of his uncles committed suicide successfully. He denies any history of substance abuse in the family. Medical history: He stated he has been told that he has cirrhosis of liver. He has chronic pain in his pelvis region. Social history: He stated he finished 10th grade education and has been working on [employer]. He stated he has done this job for his whole life. Substance abuse history: He stated he used to drink alcohol a lot. He stated yesterday he had 2 drinks in the morning. He denies use of any drugs or marijuana. He denies having any legal problems. ALLERGIES and ADR: He denies any history of being ALLERGIC to anything or having adverse drug reactions with any medication. MENTAL STATUS EXAM: General Appearance: Patient appears to be older than stated age is alert, evasive and guarded. Patient appears to have poor hygiene and grooming. Behavior: Patient is seated without any agitated behavior. Evasive and guarded Speech: Patient's speech is fluent and nonpressured. Irritable at times Mood/Affect: Patient reports their mood is depressed, affect is congruent and constricted. Suicidality/Homicidality: Patient denies having any homicidal ideation intent or plan. Denies any suicidal ideations intent or plan Perceptions: Patient denies any visual hallucinations and denies any auditory hallucinations Though content/process: Patient rambles, tangential. Minimizing his stressors and need for treatment. Memory and concentration: AOX3, grossly intact for the purposes of this session. Can spell "WORLD" backwards Judgment and insight: poor STRENGTHS/WEAKNESSES: strength is that patient is resilient. Weakness is that patient has poor judgment and has poor insight. INTELLECT: average IMPRESSIONS: Major depressive disorder, recurrent, severe without psychotic features Alcohol dependence Nicotine dependence PLAN: -Patient is admitted under involuntary status to [facility] for stabilization of psychiatric symptoms and safety. Patient has not signed medication consent and is placed in patient's chart. A second certification was completed and along with petition will be filed for court. -Medications : Will start patient on Cymbalta 30 mg daily for mood/anxiety/pain. Trazodone 25 mg daily at bedtime for insomnia/mood. -Ativan and Haldol PRN for agitation/aggression -Started thiamine, MVM for etoh use -CIWA protocol with Ativan PRN for ETOH withdrawal -Patient was counselled on substance abuse however he refused to talk back and minimized his drinking -Patient was informed of the risks, benefits and side effects of the medication and patient verbally consented to taking the medications. Patient signed med consent form and was placed in chart. -Internal Medicine consult to perform medical evaluation and physical. -NRT - nicotine patch -SW on board for discharge planning. Encourage patient to participate in groups to work on coping skills. Will await deferral and court date. 10/26/20 09:53
[2020-10-26] MEDS: THIAMINE 100 MG TAB PO SCH (10:13)
[2020-10-26] MEDS: MULTIVITAMINS, THERA 1 EACH TAB PO SCH (10:14)
[2020-10-26] MEDS: FOLIC ACID 1 MG TAB PO SCH (10:14)
[2020-10-26 10:22] LABS: Basophils # (A) 0.1 k/uL (0-0.2); Basophils % (A) 1 %; Eosinophils # (A) 0.2 k/uL (0-0.7); Eosinophils % (A) 2 %; HCT 44.1 % (39.0-53.0); HGB 15.2 gm/dL (13.0-17.5); Lymphocytes # (A) 2.3 k/uL (1.0-4.8); Lymphocytes % (A) 26 %; MCH 32.4 pg (25.0-35.0); MCHC 34.6 g/dL (31.0-37.0); MCV 93.7 fL (80.0-100.0); Mean Platelet Volume 8.1; Monocytes # (A) 0.5 k/uL (0-1.0); Monocytes % (A) 5 %; Neutrophils # (A) 5.7 k/uL (1.3-7.7); Neutrophils % (A) 65 %; Platelet Count 245 k/uL (150-450); RBC 4.71 m/uL (4.30-5.90); WBC 8.8 k/uL (3.8-10.6)
[2020-10-26 10:37] LABS: ALT 21 U/L (4-49); AST 31 U/L (17-59); African American GFR (CKD) >90 (>60 ml/min/1.73 sqM); Albumin 4.7 g/dL (3.5-5.0); Alkaline Phosphatase 84 U/L (38-126); Anion Gap 6 mmol/L; Bilirubin,Unconjugated 0.5 mg/dL (0.0-1.1); Blood Urea Nitrogen 9 mg/dL (9-20); Calcium 9.6 mg/dL (8.4-10.2); Carbon Dioxide 28 mmol/L (22-30); Chloride 104 mmol/L (98-107); Cholesterol 232 mg/dL (<200); Glucose 102 mg/dL (74-99); HDL Cholesterol 86 mg/dL (40-60); LDL Cholesterol,Calculated 123 mg/dL (0-99); Non-African American GFR(CKD) >90 (>60 ml/min/1.73 sqM); Potassium 4.6 mmol/L (3.5-5.1); Sodium 138 mmol/L (137-145); Total Bilirubin 0.5 mg/dL (0.2-1.3); Total Protein 8.1 g/dL (6.3-8.2); Triglycerides 115 mg/dL (<150)
[2020-10-26 17:30] LABS: Hemoglobin A1C 5.3 % (4.0-6.0)
[2020-10-26] MEDS: traZODone HCL 50 MG TAB PO SCH (21:32)
[2020-10-27 06:12] VITALS: BP 112/71; PULSE 77; TEMP 97.7
[2020-10-27] MEDS: FOLIC ACID 1 MG TAB PO SCH (08:48)
[2020-10-27] MEDS: MULTIVITAMINS, THERA 1 EACH TAB PO SCH (08:48)
[2020-10-27] MEDS: DULoxetine HCL 30 MG CAPSULE.DR PO SCH (08:48)
[2020-10-27] MEDS: NICOTINE 14MG/24HR PATCH TRANSDERM SCH (08:48)
[2020-10-27] MEDS: THIAMINE 100 MG TAB PO SCH (08:48)
--- NOTE | 2020-10-27 10:29 | P.PN ---
Progress Note - Text Progress Note Date: 10/27/20 Interval History: Patient was seen wandering the hallways and was directable and agreeable to hillary carreon with chief underwriter in the office. Patient continues to have poor hygiene and grooming. He continues to ramble and is tangential/circumstantial. He continues to minimize his need for hospitalization and for treatment. He is noted to be refusing his medications since being admitted to the hospital. He states that he is doing "fine" and claims he does not need medications at all. He has very poor insight into his condition. He states that he was finding it difficult to find a place to stay and claims that the [facility] has been closed. He states that he has not been going to groups. He claims that he is able to sleep fairly last night. At this time patient denies any current suicidal or homical ideations, intent or plan. Patient denies any auditory, visual hallucinations and denies any paranoia or delusions. Patient denies any side effects from the medications and has been compliant with meds. Mental Status Exam: General Appearance: Patient appears to be disheveled in appearance, stated age is alert, directable, and evasive at times. Behavior: Patient is calmly seated without any agitated behavior. Evasive at times Speech: Patient's speech is fluent and nonpressured. Mood/Affect: Mood is improving mildly, affect is congruent and constricted. Suicidality/Homicidality: Patient denies having any suicidal or homicidal ideation intent or plan. Perceptions: Patient denies any visual hallucinations and denies any auditory hallucinations Though content/process: Rambles, tangential/circumstantial. Logical. Minimizing his need for treatment. Memory and concentration: AOX3, grossly intact for the purposes of this session Judgment and insight: Poor Assessment Major depressive disorder, recurrent, severe without psychotic features Alcohol dependence Nicotine dependence Plan: -Patient continues to meet criteria for inpatient psychiatric admission for symptom stabilization and safety. Patient has not signed adult voluntary form and medication consent and was placed in patient's chart. -Medications: Continue Cymbalta 30 mg daily for mood/anxiety/pain, trazodone 25 mg daily at bedtime for insomnia/mood. -When necessary Ativan and Haldol for agitation/aggression. -thiamine, MVM for etoh use -CIWA protocol with Ativan PRN for ETOH withdrawal -NRT - nicotine patch -SW on board for discharge planning. Encouraged the patient to participate in milieu. Currently awaiting deferral with workers compensation attorney and court date.
[2020-10-27 20:11] LABS: Appearance,Urine Clear (Clear); Bilirubin,Urine Negative (Negative); Blood,Urine Negative (Negative); Color,Urine Colorless; Glucose,Urine (UA) Negative (Negative); Ketones,Urine Negative (Negative); Leukocyte Esterase,Urine Negative (Negative); Nitrite,Urine Negative (Negative); Protein,Urine Negative (Negative); Urobilinogen,Urine <2.0 mg/dL (<2.0)
[2020-10-27] MEDS: traZODone HCL 50 MG TAB PO SCH (20:36)
[2020-10-28 07:46] LABS: Urine Alcohol Negative (Negative); Urine Barbiturate Negative (Negative); Urine Cocaine Negative (Negative); Urine Methadone Negative (Negative); Urine Opiates Negative (Negative); Urine Phencyclidine Negative (Negative)
[2020-10-28] MEDS: NICOTINE 14MG/24HR PATCH TRANSDERM SCH (08:15)
[2020-10-28] MEDS: FOLIC ACID 1 MG TAB PO SCH (08:15)
[2020-10-28] MEDS: DULoxetine HCL 30 MG CAPSULE.DR PO SCH (08:15)
[2020-10-28] MEDS: MULTIVITAMINS, THERA 1 EACH TAB PO SCH (08:15)
[2020-10-28] MEDS: THIAMINE 100 MG TAB PO SCH (08:15)
--- NOTE | 2020-10-28 08:52 | P.DS ---
Providers Date of admission: 10/26/20 01:08 Expected date of discharge: 10/28/20 Attending physician: Osbaldo Sarmiento MD Consults: 10/26/20 02:16 Consult Physician Routine Consulting Provider: Joy Shah Consult Reason/Comments: For H & P for Medical Follow Up Do you want consulting provider notified?: Yes Primary care physician: Physician Nonstaff - Discharge Diagnosis(es) (1) Depressive disorder Current Visit: Yes Status: Acute Priority: High (2) Alcohol dependence Current Visit: Yes Status: Acute Priority: Medium (3) Nicotine dependence Current Visit: Yes Status: Acute Priority: Low Hospital Course: Admission HPI: Admission note was completed by chart writer "Patient is a 60-year-old male who is currently homeless. Patient presented to the hospital yesterday on a petition by police. According to petition patient had made statements to his mother Valentine saying that he wanted to commit suicide by jumping into the river. Patient also made comments according to the petition that stated "he won't let me before earlier gun" and also "I'm going to give up". Patient was recently psychiatrically hospitalized at the end of September 2020 for similar depressive and suicidal statements. Patient was previously discharged on Cymbalta and trazodone as needed. Patient was seen wandering the hallways and agreeable to speak to chart writer. He appears to have poor hygiene and grooming. He also displayed poor insight and judgment into his condition and was fairly guarded and evasive about why he is in the hospital. He states that "my mother made it all up" and claims that she did not make any suicidal statements towards her. He states that he was just working at a new job however was not able to tell chart writer what the job was and states that he got kicked out of the hotel room that he was sharing with another friend on Monday. He states that his mother with him in the hospital because "she is worried because I am walking the streets". He was minimizing his need for treatment and states that "your medication is experiencing an elderly". He spoke significantly about his pain that has been chronic. He claims to have poor sleep at night and fair appetite. He states that his mood is depressed. Patient denies any current suicidal or homicidal ideations intent or plan. At this time patient denies any auditory or visual hallucinations. Patient denies any flight of ideas racing thoughts and increased in goal directed behavior. Patient admits to using no recreational drugs however does consume alcohol regularly." Hospital course: Upon admission to the unit patient was initially minimizing his need for hospitalization however was admitted involuntarily on a petition and certificate. A second certificate was completed on the unit and filed as patient admitted to being noncompliant with his medications/treatment. Patient ended up signing a deferral on 10/27/20 with his patent prosecution attorney. Patient got along well with other patients on the unit and followed unit protocol. Patient was compliant with the medications and denied any side effects throughout hospital course. Patient was started on Cymbalta 30 mg daily for mood/anxiety/pain, trazodone 25 mg daily at bedtime for insomnia/mood. Patient was placed on CIWA protocol with Ativan when necessary. Patient spoke of his stressors and engaged in therapy both group and individual. Patient was also seen by medical team for history and physical exam. Throughout the course of the hospitalization patient gradually improved with regards to mood, anxiety, sleep and returned back to his baseline level of functioning. On the day of discharge patient denied any suicidal or homicidal ideations intent or plan denied any auditory or visual hallucinations. Patient endorsed wanting to live for his future and his health. The patient denied any access to guns or weapons. Patient denied any paranoia and did not endorse any delusions. Patient does have a significant history of substance abuse and was counseled on abstaining from all substances including alcohol and marijuana. Patient was offered however declined inpatient substance- abuse rehab. Patient continues to minimize his alcohol use and is declining any form of treatment including medications or therapy/programs. Patient was also counseled on the medications and need for regular compliance and was encouraged to follow-up with their outpatient appointment for mental health and also for primary care. Prior to discharge a family meeting will be arranged by health care social worker and patient's mother to answer any questions and ensure safety upon discharge. Mental status exam: General Appearance: Patient appears to be stated age is alert, directable, and attempts to be cooperative. Patient is in no acute distress and has improved hygiene and grooming Behavior: Patient is calmly seated without any agitated behavior. Speech: Patient's speech is fluent and nonpressured. Rambles at times. Mood/Affect: Patient reports their mood is "better", affect is congruent and euthymic. Suicidality/Homicidality: Patient denies having any suicidal or homicidal ideation intent or plan. Perceptions: Patient denies any auditory or visual hallucinations. Though content/process: There is no evidence of any delusional thought content and thought process is linear and goal-directed. more future oriented. Minimizes his drinking. Memory and concentration: AOX3, grossly intact for the purposes of this session. Can spell "WORLD" backwards correctly. Judgment and insight: chronically poor, however has improved with guarded prognosis Impression: Depressive disorder unspecified, rule out adjustment disorder Alcohol dependence Nicotine dependence Plan: -Continue with discharge today as patient has improved and stabilized psychiatrically and is not currently an imminent threat to himself and/or others. Patient will remain at chronically elevated risk for harm to self and/or others due to his poor insight/judgment and polysubstance abuse. -Continue medications: Cymbalta 30 mg daily/anxiety/pain, trazodone 25 mg daily at bedtime for insomnia/mood. -Patient was counseled on the need for medication compliance and appropriate follow-up at mental health and also primary care for medical issues. Patient verbalized understanding and agreed. -Social work to arrange for and conduct family meeting to ensure safety upon discharge and answer any questions/concerns. Social work also to arrange for patients follow up appointments with [facility] for psychiatric care along with follow up with primary care provider. -Patient will be given alf information and will be discharged today with his mother picking him up. -Patient counseled on abstaining from recreational drugs and marijuana and alcohol. Was informed/educated on the adverse effects on their physical and mental health. Patient verbally agreed and understood. Patient was offered substance abuse treatment however declined at this time. -Patient was instructed to return to the hospital or seek immediate medical care if their psychiatric or medical symptoms do worsen or reoccur. Allergies Allergy/AdvReac Type Severity Reaction Status Date / Time No Known Allergies Allergy Verified 10/26/20 02:29 Laboratory Results WBC 8.8 k/uL (3.8-10.6) 10/26/20 08:50 RBC 4.71 m/uL (4.30-5.90) 10/26/20 08:50 Hgb 15.2 gm/dL (13.0-17.5) 10/26/20 08:50 Hct 44.1 % (39.0-53.0) 10/26/20 08:50 MCV 93.7 fL (80.0-100.0) 10/26/20 08:50 MCH 32.4 pg (25.0-35.0) 10/26/20 08:50 MCHC 34.6 g/dL (31.0-37.0) 10/26/20 08:50 RDW 14.0 % (11.5-15.5) 10/26/20 08:50 Plt Count 245 k/uL (150-450) 10/26/20 08:50 MPV 8.1 10/26/20 08:50 Neutrophils % 65 % 10/26/20 08:50 Lymphocytes % 26 % 10/26/20 08:50 Monocytes % 5 % 10/26/20 08:50 Eosinophils % 2 % 10/26/20 08:50 Basophils % 1 % 10/26/20 08:50 Neutrophils # 5.7 k/uL (1.3-7.7) 10/26/20 08:50 Lymphocytes # 2.3 k/uL (1.0-4.8) 10/26/20 08:50 Monocytes # 0.5 k/uL (0-1.0) 10/26/20 08:50 Eosinophils # 0.2 k/uL (0-0.7) 10/26/20 08:50 Basophils # 0.1 k/uL (0-0.2) 10/26/20 08:50 Sodium 138 mmol/L (137-145) 10/26/20 08:50 Potassium 4.6 mmol/L (3.5-5.1) 10/26/20 08:50 Chloride 104 mmol/L (98-107) 10/26/20 08:50 Carbon Dioxide 28 mmol/L (22-30) 10/26/20 08:50 Anion Gap 6 mmol/L 10/26/20 08:50 BUN 9 mg/dL (9-20) 10/26/20 08:50 Creatinine 0.74 mg/dL (0.66-1.25) 10/26/20 08:50 Est GFR (CKD-EPI)AfAm >90 (>60 ml/min/1.73 sqM) 10/26/20 08:50 Est GFR (CKD-EPI)NonAf >90 (>60 ml/min/1.73 sqM) 10/26/20 08:50 Glucose 102 mg/dL (74-99) H 10/26/20 08:[address] Glu mg/dL 105 10/26/20 08:50 Hemoglobin A1c 5.3 % (4.0-6.0) 10/26/20 08:50 Calcium 9.6 mg/dL (8.4-10.2) 10/26/20 08:50 Total Bilirubin 0.5 mg/dL (0.2-1.3) 10/26/20 08:50 Conjugated Bilirubin 0.0 mg/dL (0.0-0.3) 10/26/20 08:50 Unconjugated Bilirubin 0.5 mg/dL (0.0-1.1) 10/26/20 08:50 Delta Bilirubin 0.0 mg/dL (0.0-0.2) 10/26/20 08:50 AST 31 U/L (17-59) 10/26/20 08:50 ALT 21 U/L (4-49) 10/26/20 08:50 Alkaline Phosphatase 84 U/L (38-126) 10/26/20 08:50 Total Protein 8.1 g/dL (6.3-8.2) 10/26/20 08:50 Albumin 4.7 g/dL (3.5-5.0) 10/26/20 08:50 Triglycerides 115 mg/dL (<150) 10/26/20 08:50 Cholesterol 232 mg/dL (<200) H 10/26/20 08:50 LDL Cholesterol, Calc 123 mg/dL (0-99) H 10/26/20 08:50 HDL Cholesterol 86 mg/dL (40-60) H 10/26/20 08:50 TSH 0.659 mIU/L (0.465-4.680) 10/26/20 08:50 Urine Color Colorless 10/27/20 Unknown Urine Appearance Clear (Clear) 10/27/20 Unknown Urine pH 7.0 (5.0-8.0) 10/27/20 Unknown Ur Specific [place] 1.000 (1.001-1.035) L 10/27/20 Unknown Urine Protein Negative (Negative) 10/27/20 Unknown Urine Glucose (UA) Negative (Negative) 10/27/20 Unknown Urine Ketones Negative (Negative) 10/27/20 Unknown Urine Blood Negative (Negative) 10/27/20 Unknown Urine Nitrite Negative (Negative) 10/27/20 Unknown Urine Bilirubin Negative (Negative) 10/27/20 Unknown Urine Urobilinogen <2.0 mg/dL (<2.0) 10/27/20 Unknown Ur Leukocyte Esterase Negative (Negative) 10/27/20 Unknown Urine Opiates Screen Negative ng/mL (Negative) 10/27/20 Unknown Urine Methadone Screen Negative ng/mL (Negative) 10/27/20 Unknown Ur Propoxyphene Screen Negative ng/mL (Negative) 10/27/20 Unknown Urine Barbiturates Negative ng/mL (Negative) 10/27/20 Unknown Ur Phencyclidine Scrn Negative ng/mL (Negative) 10/27/20 Unknown Ur Amphetamine Screen Negative ng/mL (Negative) 10/27/20 Unknown U Benzodiazepines Scrn Negative ng/mL (Negative) 10/27/20 Unknown Urine Cocaine Screen Negative ng/mL (Negative) 10/27/20 Unknown U Cannabinoids Screen Negative ng/mL (Negative) 10/27/20 Unknown Urine Alcohol Negative mg/dL (Negative) 10/27/20 Unknown Coronavirus (PCR) Not Detected (Not Detectd) 10/26/20 00:10 Vital Signs Temp 97.7 F 10/27/20 06:11 Pulse 77 10/27/20 06:11 Resp 16 10/27/20 06:11 BP 112/71 10/27/20 06:11 Pulse Ox 98 10/27/20 06:11 Patient Condition at Discharge: Stable Plan - Discharge Summary New Discharge Prescriptions: New RX: Folic Acid 1 mg PO DAILY 30 Days tab RX: Nicotine 14Mg/24Hr Patch [Habitrol] 1 patch TRANSDERM DAILY 14 Days patch RX: Multivitamins, Thera [Multivitamin (formulary)] 1 each PO DAILY 30 Days tab RX: DULoxetine HCL [Cymbalta] 30 mg PO DAILY 30 Days capsule. RX: traZODone HCL [Desyrel] 25 mg PO HS 30 Days tab RX: Thiamine [Vitamin B-1] 100 mg PO DAILY 30 Days tab Discontinued RX: DULoxetine HCL [Cymbalta] 30 mg PO HS 30 Days capsule. RX: traZODone HCL [Desyrel] 25 mg PO HS PRN 30 Days tab PRN Reason: Insomnia RX: Nicotine 14Mg/24Hr Patch [Habitrol] 1 patch TRANSDERM DAILY 14 Days patch Pantoprazole Sodium [Protonix] 40 mg PO [id number] 30 Days tablet. Discharge Medication List RX: DULoxetine HCL [Cymbalta] 30 mg PO DAILY 30 Days capsule. 10/28/20 [Rx] RX: Folic Acid 1 mg PO DAILY 30 Days tab 10/28/20 [Rx] RX: Multivitamins, Thera [Multivitamin (formulary)] 1 each PO DAILY 30 Days tab 10/28/20 [Rx] RX: Nicotine 14Mg/24Hr Patch [Habitrol] 1 patch TRANSDERM DAILY 14 Days patch 10/28/20 [Rx] RX: Thiamine [Vitamin B-1] 100 mg PO DAILY 30 Days tab 10/28/20 [Rx] RX: traZODone HCL [Desyrel] 25 mg PO HS 30 Days tab 10/28/20 [Rx] Follow up Appointment(s)/Referral(s): [facility] [Outside] - 10/28/20 11:00 am (Intake 10/28/20 at 11:00 am with Frida on the [facility].) Nonstaff,Physician [Primary Care Provider] - 1-2 days Activity/Diet/Wound Care/Special Instructions: Activity and diet as tolerated. Avoid the use of street drugs and alcohol. Take all medications as prescribed. When you are in need of refills on your medic ations please contact your medical provider and/or outpatient psychiatrist to have this done. Please go to scheduled outpatient appointment for aftercare treatment. If symptoms return or become worse, call the crisis line at and/or go to the nearest emergency room for evaluation. Discharge Disposition: OTHER INSTITUTION NOT DEFINED
== END 2020-10-28 12:46 | disposition other institution (70) | DRG 885 ==
LOC: EC 20:21 → 3MHU 10-26 01:08
PROVIDERS: ADMIT Psychiatry & Neurology Psychiatry; ATTEND Psychiatry & Neurology Psychiatry
DX: F33.2 Major depressive disorder, recurrent severe without psychotic features (principal); F10.20 Alcohol dependence, uncomplicated; F17.200 Nicotine dependence, unspecified, uncomplicated; F41.9 Anxiety disorder, unspecified; G47.00 Insomnia, unspecified; Z59.0 Homelessness; Z79.899 Other long term (current) drug therapy; Z86.73 Personal history of transient ischemic attack (TIA), and cerebral infarction without residual deficits; Z91.14 Patient's other noncompliance with medication regimen; Z20.822 Contact with and (suspected) exposure to COVID-19
CPT/HCPCS: 80053; 80061; 80306; 81003; 82075; 82248; 83036; 84443; 85025; 87635; 99285

== ENCOUNTER 2021-01-06 21:04 | Emergency (ER) | payer MEDICAID, OTHER ==
[2021-01-06 21:29] VITALS: BP 119/69; PULSE 113; RESP 20; TEMP 99.1
--- NOTE | 2021-01-06 21:32 | ED ---
Psych HPI - General Chief Complaint: Psychiatric Symptoms Stated Complaint: Mental health Time Seen by Provider: 01/06/21 21:31 Source: patient, RN notes reviewed, old records reviewed Mode of arrival: ambulatory Limitations: no limitations - History of Present Illness Initial Comments: This is a 52-year-old male for mental health evaluation. Patient presents today for evaluation regards to psychiatric illness. Patient states he was just discharged from psychiatric facility continues remained depressed and suicidal very anxious. Patient denies drug or alcohol abuse today MD Complaint: suicidal ideation, feels depressed -: week(s) Associated Psychiatric Symptoms: depression, suicidal ideation History of same: Yes Quality: constant, getting worse Improves With: none Worsens With: none Context: significant life stressor Associated Symptoms: denies other symptoms Treatments Prior to Arrival: placed on mental health hold - Related Data Previous Rx's Medication Instructions Recorded DULoxetine HCL [Cymbalta] 30 mg PO DAILY 30 Days capsule. 10/28/20 Folic Acid 1 mg PO DAILY 30 Days tab 10/28/20 Multivitamins, Thera [Multivitamin 1 each PO DAILY 30 Days tab 10/28/20 (formulary)] Nicotine 14Mg/24Hr Patch [Habitrol] 1 patch TRANSDERM DAILY 14 Days 10/28/20 patch Thiamine [Vitamin B-1] 100 mg PO DAILY 30 Days tab 10/28/20 traZODone HCL [Desyrel] 25 mg PO HS 30 Days tab 10/28/20 Allergies Allergy/AdvReac Type Severity Reaction Status Date / Time No Known Allergies Allergy Verified 01/06/21 21:29 Review of Systems ROS Statement: Those systems with pertinent positive or pertinent negative responses have been documented in the HPI. ROS Other: All systems not noted in ROS Statement are negative. Past Medical History Past Medical History: CVA/TIA, Skin Disorder History of Any Multi-Drug Resistant Organisms: None Reported Past Surgical History: Hernia Repair, Orthopedic Surgery Additional Past Surgical History / Comment(s): rt arm, lt wrist Past Psychological History: Anxiety, Depression Smoking Status: Current every day smoker Past Alcohol Use History: Abuse, Daily Past Drug Use History: None Reported General Exam Limitations: no limitations General appearance: alert, in no apparent distress Head exam: Present: atraumatic, normocephalic, normal inspection Eye exam: Present: normal appearance, PERRL, EOMI. Absent: scleral icterus, conjunctival injection, periorbital swelling ENT exam: Present: normal exam, mucous membranes moist Neck exam: Present: normal inspection. Absent: tenderness, meningismus, lymphadenopathy Respiratory exam: Present: normal lung sounds bilaterally. Absent: respiratory distress, wheezes, rales, rhonchi, stridor Cardiovascular Exam: Present: regular rate, normal rhythm, normal heart sounds. Absent: systolic murmur, diastolic murmur, rubs, gallop, clicks GI/Abdominal exam: Present: soft, normal bowel sounds. Absent: distended, tenderness, guarding, rebound, rigid Extremities exam: Present: normal inspection, full ROM, normal capillary refill. Absent: tenderness, pedal edema, joint swelling, calf tenderness Back exam: Present: normal inspection Neurological exam: Present: alert, oriented X3, CN II-XII intact Psychiatric exam: Present: normal affect, normal mood Skin exam: Present: warm, dry, intact, normal color. Absent: rash Course Vital Signs 01/06/21 21:24 Temperature 99.1 F Pulse Rate 113 H Respiratory 20 Rate Blood Pressure 119/69 O2 Sat by Pulse 96 Oximetry - Reevaluation(s) Reevaluation #1: 01/07/21 00:01 Medical records reviewed Medical Decision Making - Medical Decision Making 60 male who was seen and evaluated by psychiatry, patient is stable for discharge home - Lab Data Result diagrams: 01/07/21 00:18 01/07/21 00:18 Lab Results 01/07/21 01/07/21 01/07/21 Range/Units 00:18 00:18 00:18 WBC 10.5 (3.8-10.6) k/uL RBC 3.54 L (4.30-5.90) m/uL Hgb 10.8 L (13.0-17.5) gm/dL Hct 33.7 L (39.0-53.0) % MCV 95.1 (80.0-100.0) fL MCH 30.5 (25.0-35.0) pg MCHC 32.1 (31.0-37.0) g/dL RDW 14.3 (11.5-15.5) % Plt Count 480 H (150-450) k/uL MPV 7.7 Neutrophils % 64 % Lymphocytes % 28 % Monocytes % 4 % Eosinophils % 2 % Basophils % 1 % Neutrophils # 6.7 (1.3-7.7) k/uL Lymphocytes # 2.9 (1.0-4.8) k/uL Monocytes # 0.5 (0-1.0) k/uL Eosinophils # 0.2 (0-0.7) k/uL Basophils # 0.1 (0-0.2) k/uL Sodium 140 (137-145) mmol/L Potassium 4.7 (3.5-5.1) mmol/L Chloride 101 (98-107) mmol/L Carbon Dioxide 27 (22-30) mmol/L Anion Gap 12 mmol/L BUN 15 (9-20) mg/dL Creatinine 0.65 L (0.66-1.25) mg/dL Est GFR (CKD-EPI)AfAm >90 (>60 ml/min/1.73 sqM) Est GFR (CKD-EPI)NonAf >90 (>60 ml/min/1.73 sqM) Glucose 78 (74-99) mg/dL Calcium 9.6 (8.4-10.2) mg/dL Urine Color Colorless Urine Appearance Cloudy (Clear) Urine pH 5.5 (5.0-8.0) Ur Specific [place] 1.005 (1.001-1.035) Urine Protein Negative (Negative) Urine Glucose (UA) Negative (Negative) Urine Ketones Negative (Negative) Urine Blood Negative (Negative) Urine Nitrite Negative (Negative) Urine Bilirubin Negative (Negative) Urine Urobilinogen <2.0 (<2.0) mg/dL Ur Leukocyte Esterase Negative (Negative) Urine WBC <1 (0-5) /hpf Ur Squamous Epith Cells <1 (0-4) /hpf Urine Mucus Rare H (None) /hpf Urine Opiates Screen Detected H (NotDetected) Ur Oxycodone Screen Not Detected (NotDetected) Urine Methadone Screen Not Detected (NotDetected) Ur Propoxyphene Screen Not Detected (NotDetected) Ur Barbiturates Screen Not Detected (NotDetected) U Tricyclic Antidepress Not Detected (NotDetected) Ur Phencyclidine Scrn Not Detected (NotDetected) Ur Amphetamines Screen Not Detected (NotDetected) U Methamphetamines Scrn Not Detected (NotDetected) U Benzodiazepines Scrn Not Detected (NotDetected) Urine Cocaine Screen Not Detected (NotDetected) U Marijuana (THC) Screen Not Detected (NotDetected) Serum Alcohol 43 mg/dL Disposition Clinical Impression: Mood disorder, Depressive disorder, Chronic pain Disposition: HOME SELF-CARE Condition: Fair Instructions (If sedation given, give patient instructions): Mood Disorders (ED) Is patient prescribed a controlled substance at d/c from ED?: No Referrals: Nonstaff,Physician [Primary Care Provider] - 1-2 days
[2021-01-07 00:38] LABS: Basophils # (A) 0.1 k/uL (0-0.2); Basophils % (A) 1 %; Eosinophils # (A) 0.2 k/uL (0-0.7); Eosinophils % (A) 2 %; HCT 33.7 % (39.0-53.0); HGB 10.8 gm/dL (13.0-17.5); Lymphocytes # (A) 2.9 k/uL (1.0-4.8); Lymphocytes % (A) 28 %; MCH 30.5 pg (25.0-35.0); MCHC 32.1 g/dL (31.0-37.0); MCV 95.1 fL (80.0-100.0); Mean Platelet Volume 7.7; Monocytes # (A) 0.5 k/uL (0-1.0); Monocytes % (A) 4 %; Neutrophils # (A) 6.7 k/uL (1.3-7.7); Neutrophils % (A) 64 %; Platelet Count 480 k/uL (150-450); RBC 3.54 m/uL (4.30-5.90); RDW 14.3 % (11.5-15.5); WBC 10.5 k/uL (3.8-10.6)
[2021-01-07 00:41] LABS: Appearance,Urine Cloudy (Clear); Bilirubin,Urine Negative (Negative); Blood,Urine Negative (Negative); Color,Urine Colorless; Glucose,Urine (UA) Negative (Negative); Ketones,Urine Negative (Negative); Leukocyte Esterase,Urine Negative (Negative); Mucus,Urine Rare /hpf; Nitrite,Urine Negative (Negative); PH, Urine 5.5 (5.0-8.0); Protein,Urine Negative (Negative); Specific Gravity,Urine 1.005 (1.001-1.035); Squamous Epithelial Cell,Urine <1 /hpf (0-4); Urobilinogen,Urine <2.0 mg/dL (<2.0); WBC,Urine <1 /hpf (0-5)
[2021-01-07 00:49] LABS: Urn Cannabinoid Scrn Not Detected (NotDetected)
[2021-01-07 00:50] LABS: Amphetamine Screen,Urine Not Detected (NotDetected); Barbiturate Screen,Urine Not Detected (NotDetected); Benzodiazepines Screen,Urine Not Detected (NotDetected); Cocaine Screen,Urine Not Detected (NotDetected); Methadone Screen, Urine Not Detected (NotDetected); Opiate Screen,Urine Detected (NotDetected); Oxycodone Screen, Urine Not Detected (NotDetected); Phencyclidine Screen,Urine Not Detected (NotDetected); Tricyclic Antidepressant,Urine Not Detected (NotDetected)
[2021-01-07 00:51] LABS: African American GFR (CKD) >90 (>60 ml/min/1.73 sqM); Alcohol 43 mg/dL; Anion Gap 12 mmol/L; Blood Urea Nitrogen 15 mg/dL (9-20); Calcium 9.6 mg/dL (8.4-10.2); Carbon Dioxide 27 mmol/L (22-30); Chloride 101 mmol/L (98-107); Glucose 78 mg/dL (74-99); Non-African American GFR(CKD) >90 (>60 ml/min/1.73 sqM); Potassium 4.7 mmol/L (3.5-5.1); Sodium 140 mmol/L (137-145)
== END 2021-01-07 04:11 | disposition home or self-care (01) ==
LOC: EC 21:04
DX: F32.9 Major depressive disorder, single episode, unspecified (principal); G89.29 Other chronic pain; F41.9 Anxiety disorder, unspecified; F17.200 Nicotine dependence, unspecified, uncomplicated; Z86.73 Personal history of transient ischemic attack (TIA), and cerebral infarction without residual deficits; Z79.899 Other long term (current) drug therapy
CPT/HCPCS: 99284; 36415; 80048; 85025; 81001; 80306; G0480; 80320

== ENCOUNTER 2021-01-11 12:06 | Inpatient (IN) | payer MEDICAID, OTHER ==
[2021-01-11] MEDS ORDERED: ACETAMINOPHEN TAB 500 MG TAB PO STA (12:54)
[2021-01-11 13:54] LABS: Basophils % (A) 1 %; Eosinophils # (A) 0.2 k/uL (0-0.7); Eosinophils % (A) 2 %; HCT 34.1 % (39.0-53.0); HGB 11.3 gm/dL (13.0-17.5); Lymphocytes # (A) 3.4 k/uL (1.0-4.8); Lymphocytes % (A) 44 %; MCH 31.3 pg (25.0-35.0); MCHC 33.3 g/dL (31.0-37.0); MCV 94.1 fL (80.0-100.0); Mean Platelet Volume 7.4; Monocytes # (A) 0.4 k/uL (0-1.0); Monocytes % (A) 5 %; Neutrophils # (A) 3.6 k/uL (1.3-7.7); Neutrophils % (A) 47 %; Platelet Count 310 k/uL (150-450); RBC 3.62 m/uL (4.30-5.90); WBC 7.7 k/uL (3.8-10.6)
[2021-01-11 14:17] LABS: ALT 21 U/L (4-49); AST 29 U/L (17-59); Acetaminophen <10.0 ug/mL; African American GFR (CKD) >90 (>60 ml/min/1.73 sqM); Albumin 4.3 g/dL (3.5-5.0); Alcohol 45 mg/dL; Alkaline Phosphatase 64 U/L (38-126); Anion Gap 10 mmol/L; Blood Urea Nitrogen 9 mg/dL (9-20); Calcium 9.6 mg/dL (8.4-10.2); Carbon Dioxide 24 mmol/L (22-30); Chloride 104 mmol/L (98-107); Glucose 67 mg/dL (74-99); Non-African American GFR(CKD) >90 (>60 ml/min/1.73 sqM); Potassium 3.9 mmol/L (3.5-5.1); Salicylate <1.0 mg/dL; Sodium 138 mmol/L (137-145); Total Bilirubin 0.3 mg/dL (0.2-1.3); Total Protein 7.4 g/dL (6.3-8.2)
[2021-01-11 14:20] LABS: Amphetamine Screen,Urine Not Detected (NotDetected); Barbiturate Screen,Urine Not Detected (NotDetected); Benzodiazepines Screen,Urine Not Detected (NotDetected); Cocaine Screen,Urine Not Detected (NotDetected); Methadone Screen, Urine Not Detected (NotDetected); Opiate Screen,Urine Detected (NotDetected); Oxycodone Screen, Urine Not Detected (NotDetected); Phencyclidine Screen,Urine Not Detected (NotDetected); Tricyclic Antidepressant,Urine Not Detected (NotDetected); Urn Cannabinoid Scrn Not Detected (NotDetected)
--- NOTE | 2021-01-11 16:22 | ED ---
Psych HPI - General Chief Complaint: Psychiatric Symptoms Stated Complaint: Suicidal Time Seen by Provider: 01/11/21 12:23 Source: patient, EMS Mode of arrival: EMS - History of Present Illness Initial Comments: Patient is a 60-year-old male with past medical history remarkable for psychiatric history, chronic alcohol use, attempted suicide attempts recently resulting in cutting of his left upper extremity which now has stitches and drainage in place, TIA who presents to emergency department complaining of suicidal ideations. Patient was petitioned by his mother. According to patient's mother, the patient has been stating he wants to drink himself to . He also has a recent suicide attempt by cutting his left arm. This was repaired and outside facility. He currently denies any chest pain, shortness of breath, abdominal pain, nausea, vomiting. His chronic left hand weakness and numbness resulting from his prior trauma to his left arm for a few weeks ago. T here is no acute change. He does endorse drinking alcohol today but denies any other drug use. He does endorse having suicidal thoughts. He states that if he leaves he will likely attempt to drink himself to . He endorses no acute complaints at this time. He denies any visual or auditory hallucinations. He denies any homicidal ideations. Denies any fevers, chills, sick contacts, cough. - Related Data Home Medications Medication Instructions Recorded Confirmed Aspirin EC [Ecotrin Low Dose] 81 mg PO DAILY 01/11/21 01/11/21 Ergocalciferol [Vitamin D2 (1250 1,250 mcg PO Q7D 01/11/21 01/11/21 Mcg = 32991 Iu)] Gabapentin [Neurontin] 600 mg PO TID 01/11/21 01/11/21 HYDROcodone/APAP 7.5-325MG [[place] 1 tab PO Q6H PRN 01/11/21 01/11/21 7.5-325] Pantoprazole Sodium [Protonix] 40 mg PO DAILY 01/11/21 01/11/21 Sertraline [Zoloft] 100 mg PO DAILY 01/11/21 01/11/21 traZODone HCL [Desyrel] 100 mg PO HS 01/11/21 01/11/21 Allergies Allergy/AdvReac Type Severity Reaction Status Date / Time No Known Allergies Allergy Verified 01/11/21 13:37 Review of Systems ROS Statement: Those systems with pertinent positive or pertinent negative responses have been documented in the HPI. Review of Systems: CONST: Denies fever EYES: Denies blurry vision ENT: Denies nasal congestion C/V: Denies Chest pain RESP: Denies shortness of breath GI: Denies abdominal pain : Denies dysuria SKIN: Denies rash. MSK: Denies joint pain. NEURO: Denies headache PSYCH: Denies homicidal ideations/plans/attempts. Denies visual or auditory hallucinations. He endorses suicidal ideations as well as a plan. Does have a history of prior suicidal attempts. ROS Other: All systems not noted in ROS Statement are negative. Past Medical History Past Medical History: CVA/TIA, Skin Disorder History of Any Multi-Drug Resistant Organisms: None Reported Past Surgical History: Hernia Repair, Orthopedic Surgery Additional Past Surgical History / Comment(s): rt arm, lt wrist Past Psychological History: Anxiety, Depression Smoking Status: Current every day smoker Past Alcohol Use History: Abuse, Daily Past Drug Use History: None Reported General Exam - General Exam Comments Initial Comments: General: Appears mildly intoxicated with alcohol at this time. HEAD: Normal with no signs of head trauma. EYES: PERRLA, EOMI, conjunctiva normal, no discharge. Pupils are 3 mm and reactive equally bilaterally. ENT: Hearing grossly intact, normal oropharynx. RESPIRATORY: Clear breath sounds bilaterally. No wheezes, rales, or rhonchi. C/V: Regular rate and rhythm. S1 and S2 auscultated, no edema, peripheral pulses 2+ and intact throughout ABD: Abd is soft, nontender, nondistended EXT: Normal range of motion of the right upper as well as bilateral lower extremity is. He does have reduced range of motion of the left wrist, fingers, hand secondary to recent trauma from suicide attempt by cutting into his arm. He has chronic sensory deficits throughout his left hand as well as chronic weakness, secondary to his recent suicide SKIN: Patient has a long approximately 20 cm laceration that is he states the anterior aspect of his left forearm. It is healing well. Does not appear erythematous and there is no signs of infection and no drainage. 2 drains are intact that are minimally draining at this time. NEURO: Alert and oriented 4. No focal sensory or strength deficits of the left upper extremity as described above. These are chronic. Patient has a weakened dorsiflexion of the left wrist, weakened extension of the left fingers and flexion of the fingers as well as wink and abduction and adduction of the left fingers. Patient states that this has all been chronic since his suicide attempt an injury to his left upper extremity. Patient has sensory deficits in the left medial and ulnar nerve distribution. Course Vital Signs 01/11/21 01/11/21 01/11/21 12:09 15:00 16:00 Temperature 97.5 F L Pulse Rate 98 Respiratory 18 18 18 Rate Blood Pressure 120/74 O2 Sat by Pulse 99 Oximetry 01/11/21 01/11/21 01/11/21 17:00 18:00 19:00 Temperature Pulse Rate Respiratory 18 18 18 Rate Blood Pressure O2 Sat by Pulse Oximetry Medical Decision Making - Medical Decision Making Based on the patient's presentation and physical exam, and he believes that he requires psychiatric evaluation but like to obtain screening laboratory studies at this time due to his age. Therefore basic labs were ordered. This includes alcohol level, UDS, as well as electrolytes and CBC to rule out any worsening infection especially with his recent history of left arm laceration. It does not appear acutely infected at this time. Patient was in agreement with this plan. We'll redress his healing wound. Patient's x-ray studies were relatively unremarkable. He did have a mild hypoglycemia 67, however we did the patient a sandwich and juice and he is menta ting and acting normally. Patient does have detected opiates in his urine as well as a mild alcohol level of 45. Patient does have a normocytic anemia of 11.3. At this time the patient is medically cleared for evaluation by psychiatry. Disposition is pending psychiatric evaluation. Psychiatry evaluated the patient and determined that he needs inpatient criteria for admission per psychiatry. Patient will be admitted to inpatient psychiatry stable condition. - Lab Data Result diagrams: 01/11/21 13:16 01/11/21 13:16 Lab Results 01/11/21 01/11/21 01/11/21 Range/Units 13:16 13:16 13:16 WBC 7.7 (3.8-10.6) k/uL RBC 3.62 L (4.30-5.90) m/uL Hgb 11.3 L (13.0-17.5) gm/dL Hct 34.1 L (39.0-53.0) % MCV 94.1 (80.0-100.0) fL MCH 31.3 (25.0-35.0) pg MCHC 33.3 (31.0-37.0) g/dL RDW 14.0 (11.5-15.5) % Plt Count 310 (150-450) k/uL MPV 7.4 Neutrophils % 47 % Lymphocytes % 44 % Monocytes % 5 % Eosinophils % 2 % Basophils % 1 % Neutrophils # 3.6 (1.3-7.7) k/uL Lymphocytes # 3.4 (1.0-4.8) k/uL Monocytes # 0.4 (0-1.0) k/uL Eosinophils # 0.2 (0-0.7) k/uL Basophils # 0.0 (0-0.2) k/uL Sodium 138 (137-145) mmol/L Potassium 3.9 (3.5-5.1) mmol/L Chloride 104 (98-107) mmol/L Carbon Dioxide 24 (22-30) mmol/L Anion Gap 10 mmol/L BUN 9 (9-20) mg/dL Creatinine 0.64 L (0.66-1.25) mg/dL Est GFR (CKD-EPI)AfAm >90 (>60 ml/min/1.73 sqM) Est GFR (CKD-EPI)NonAf >90 (>60 ml/min/1.73 sqM) Glucose 67 L (74-99) mg/dL Calcium 9.6 (8.4-10.2) mg/dL Total Bilirubin 0.3 (0.2-1.3) mg/dL AST 29 (17-59) U/L ALT 21 (4-49) U/L Alkaline Phosphatase 64 (38-126) U/L Total Protein 7.4 (6.3-8.2) g/dL Albumin 4.3 (3.5-5.0) g/dL Salicylates <1.0 mg/dL Urine Opiates Screen Detected H (NotDetected) Ur Oxycodone Screen Not Detected (NotDetected) Urine Methadone Screen Not Detected (NotDetected) Ur Propoxyphene Screen Not Detected (NotDetected) Acetaminophen <10.0 ug/mL Ur Barbiturates Screen Not Detected (NotDetected) U Tricyclic Antidepress Not Detected (NotDetected) Ur Phencyclidine Scrn Not Detected (NotDetected) Ur Amphetamines Screen Not Detected (NotDetected) U Methamphetamines Scrn Not Detected (NotDetected) U Benzodiazepines Scrn Not Detected (NotDetected) Urine Cocaine Screen Not Detected (NotDetected) U Marijuana (THC) Screen Not Detected (NotDetected) Serum Alcohol 45 mg/dL Disposition Clinical Impression: Psychiatric hospitalisation, Suicidal ideations, Alcohol intoxication, Polysubstance abuse Disposition: ADMITTED IP TO THIS HOSP Condition: Stable Referrals: None,Stated [Primary Care Provider] - 1-2 days
[2021-01-11] MEDS ORDERED: MAG HYDROX/AL HYDROX/SIMETH 30 ML CUP PO PRN (23:31)
[2021-01-11] MEDS ORDERED: MAGNESIUM HYDROXIDE 2,400 MG/10 ML CUP PO PRN (23:31)
[2021-01-11] MEDS ORDERED: LORazepam 1 MG TAB PO PRN (23:41)
[2021-01-11] MEDS ORDERED: LORazepam 2 MG/ML INJ IM PRN ×2 (23:41)
[2021-01-11] MEDS ORDERED: haloperidoL 5 MG TAB PO PRN (23:49)
[2021-01-11] MEDS ORDERED: HALOPERIDOL LACTATE 5 MG/ML 1 ML VIAL IM PRN (23:49)
--- NOTE | 2021-01-12 01:07 | P.PN ---
Progress Note - Text Progress Note Date: 01/12/21 New patient currently sleeping
[2021-01-12] MEDS: NICOTINE 14MG/24HR PATCH TRANSDERM SCH ×2 (06:31→08:40)
[2021-01-12] MEDS: PANTOPRAZOLE 40 MG TABLET PO SCH (08:40)
[2021-01-12] MEDS: ASPIRIN 81 MG PO SCH (08:40)
[2021-01-12] MEDS: GABAPENTIN 300 MG CAP PO SCH ×3 (08:40→20:42)
[2021-01-12] MEDS: HYDROcodone/APAP 5-325MG 1 EACH TAB PO PRN ×3 (08:41→20:45)
[2021-01-12] MEDS: SERTRALINE 100 MG TAB PO SCH (08:42)
--- NOTE | 2021-01-12 09:59 | P.HP ---
Psychiatric H&P - . H&P Date: 01/12/21 History & Physical: Allergies Allergy/AdvReac Type Severity Reaction Status Date / Time No Known Allergies Allergy Verified 01/11/21 13:37 Vital Signs Temp 98.5 F 01/12/21 06:55 Pulse 105 H 01/12/21 06:55 Resp 18 01/12/21 06:55 BP 107/76 01/12/21 06:55 Pulse Ox 97 01/11/21 23:49 Intake & Output 01/11/21 01/12/21 01/12/21 18:59 06:59 18:59 Weight 78.471 kg 78.471 kg Laboratory Last Values WBC 7.7 k/uL (3.8-10.6) 01/11/21 13:16 RBC 3.62 m/uL (4.30-5.90) L 01/11/21 13:16 Hgb 11.3 gm/dL (13.0-17.5) L 01/11/21 13:16 Hct 34.1 % (39.0-53.0) L 01/11/21 13:16 MCV 94.1 fL (80.0-100.0) 01/11/21 13:16 MCH 31.3 pg (25.0-35.0) 01/11/21 13:16 MCHC 33.3 g/dL (31.0-37.0) 01/11/21 13:16 RDW 14.0 % (11.5-15.5) 01/11/21 13:16 Plt Count 310 k/uL (150-450) 01/11/21 13:16 MPV 7.4 01/11/21 13:16 Neutrophils % 47 % 01/11/21 13:16 Lymphocytes % 44 % 01/11/21 13:16 Monocytes % 5 % 01/11/21 13:16 Eosinophils % 2 % 01/11/21 13:16 Basophils % 1 % 01/11/21 13:16 Neutrophils # 3.6 k/uL (1.3-7.7) 01/11/21 13:16 Lymphocytes # 3.4 k/uL (1.0-4.8) 01/11/21 13:16 Monocytes # 0.4 k/uL (0-1.0) 01/11/21 13:16 Eosinophils # 0.2 k/uL (0-0.7) 01/11/21 13:16 Basophils # 0.0 k/uL (0-0.2) 01/11/21 13:16 Sodium 138 mmol/L (137-145) 01/11/21 13:16 Potassium 3.9 mmol/L (3.5-5.1) 01/11/21 13:16 Chloride 104 mmol/L (98-107) 01/11/21 13:16 Carbon Dioxide 24 mmol/L (22-30) 01/11/21 13:16 Anion Gap 10 mmol/L 01/11/21 13:16 BUN 9 mg/dL (9-20) 01/11/21 13:16 Creatinine 0.64 mg/dL (0.66-1.25) L 01/11/21 13:16 Est GFR (CKD-EPI)AfAm >90 (>60 ml/min/1.73 sqM) 01/11/21 13:16 Est GFR (CKD-EPI)NonAf >90 (>60 ml/min/1.73 sqM) 01/11/21 13:16 Glucose 67 mg/dL (74-99) L 01/11/21 13:16 Calcium 9.6 mg/dL (8.4-10.2) 01/11/21 13:16 Total Bilirubin 0.3 mg/dL (0.2-1.3) 01/11/21 13:16 AST 29 U/L (17-59) 01/11/21 13:16 ALT 21 U/L (4-49) 01/11/21 13:16 Alkaline Phosphatase 64 U/L (38-126) 01/11/21 13:16 Total Protein 7.4 g/dL (6.3-8.2) 01/11/21 13:16 Albumin 4.3 g/dL (3.5-5.0) 01/11/21 13:16 TSH 1.260 mIU/L (0.465-4.680) 01/11/21 13:16 Salicylates <1.0 mg/dL 01/11/21 13:16 Urine Opiates Screen Detected (NotDetected) H 01/11/21 13:16 Ur Oxycodone Screen Not Detected (NotDetected) 01/11/21 13:16 Urine Methadone Screen Not Detected (NotDetected) 01/11/21 13:16 Ur Propoxyphene Screen Not Detected (NotDetected) 01/11/21 13:16 Acetaminophen <10.0 ug/mL 01/11/21 13:16 Ur Barbiturates Screen Not Detected (NotDetected) 01/11/21 13:16 U Tricyclic Antidepress Not Detected (NotDetected) 01/11/21 13:16 Ur Phencyclidine Scrn Not Detected (NotDetected) 01/11/21 13:16 Ur Amphetamines Screen Not Detected (NotDetected) 01/11/21 13:16 U Methamphetamines Scrn Not Detected (NotDetected) 01/11/21 13:16 U Benzodiazepines Scrn Not Detected (NotDetected) 01/11/21 13:16 Urine Cocaine Screen Not Detected (NotDetected) 01/11/21 13:16 U Marijuana (THC) Screen Not Detected (NotDetected) 01/11/21 13:16 Serum Alcohol 45 mg/dL 01/11/21 13:16 Coronavirus (PCR) Not Detected (Not Detectd) 01/11/21 20:22 01/12/21 09:48 IDENTIFYING DATA: Patient is a 60-year-old male who is currently homeless HPI: Patient presented to the hospital yesterday on a petition by his mother. According to ER report patient was claiming that he was going to "drink himself to " and also had a previous suicide attempt recently where he cut his arm and was treated at an outside hospital for this and then discharged. Patient's UDS was positive for opiates and blood alcohol level on admission was 45. Patient was rambling during the interview and was attempting to be cooperative however was evasive and guarded at times. She spoke about "slashing my arm" several weeks ago and was demanding care from a surgeon. He claims that it was a suicide attempt and was treated at [facility] [place] and then discharged with follow-up however claims that he did not follow-up. He states that he went to his sister's house and then his brother got involved in his care and then prompted him to the hospital. He claims that he left the hospital after discharge in October 2020 and states that he "threw all your stuff out" referring to papers and medications and claims that he boarded a bus to [place] and claims that he went to [place] afterwards and stated that "my arteries were too messed up" and he states that the sheriff's officer's department put him on a bus back to [place]. He claims that he is feeling "tired of being sick" and referred to ongoing pain issues with his hernia in his back. He claims that his sleep has been poor. States that he is not taking any medications. Patient denies any current suicidal or homicidal ideations intent or plan. At this time patient denies any auditory or visual hallucinations. Patient denies any flight of ideas racing thoughts and increased in goal directed behavior. Patient admits to using no recreational drugs however does consume alcohol regularly. PAST PSYCHIATRIC HISTORY: Patient has a psychiatric history significant for depression. Patient was previously on trazodone when necessary and Cymbalta. Patient was previously psychiatrically hospitalized in late october 2020 on the mental health unit. Patient denies any psychiatric outpatient follow-up. Patient denies any history of suicide attempts in the past. Family history: He stated that he is currently homeless. He has 3 sisters who are still alive. He has 2 brothers who are still alive. His father is . He is not and has 2 children. He stated that his has nothing to do with him. She changes her phone numbers frequently. He denies any family history of mental illness but then stated that one of his uncles committed suicide successfully. He denies any history of substance abuse in the family. Medical history: He stated he has been told that he has cirrhosis of liver. He has chronic pain in his pelvis region. Social history: He stated he finished 10th grade education and has been working on [employer]. He stated he has done this job for his whole life. Substance abuse history: He stated he used to drink alcohol a lot. He stated yesterday he had 2 drinks in the morning. He denies use of any drugs or marijuana. He denies having any legal problems. ALLERGIES and ADR: He denies any history of being ALLERGIC to anything or having adverse drug reactions with any medication. MENTAL STATUS EXAM: General Appearance: Patient appears to be older than stated age is alert, evasive and guarded. Patient appears to have poor hygiene and grooming. Behavior: Patient is seated without any agitated behavior. Evasive and guarded Speech: Patient's speech is fluent and nonpressured. Irritable at times Mood/Affect: Patient reports their mood is depressed, affect is congruent and constricted. Suicidality/Homicidality: Patient denies having any homicidal ideation intent or plan. Denies any suicidal ideations intent or plan Perceptions: Patient denies any visual hallucinations and denies any auditory hallucinations Though content/process: Patient rambles, tangential. Minimizing his stressors and need for treatment. Memory and concentration: AOX3, grossly intact for the purposes of this session. Can spell "WORLD" backwards Judgment and insight: poor STRENGTHS/WEAKNESSES: strength is that patient is resilient. Weakness is that patient has poor judgment and has poor insight. INTELLECT: average IMPRESSIONS: Major depressive disorder, recurrent, severe without psychotic features Alcohol dependence Nicotine dependence PLAN: -Patient is admitted under voluntary status to MHU for stabilization of psychiatric symptoms and safety. Patient has signed medication consent and is placed in patient's chart. -Medications : Will start patient on zoloft 100 mg daily for mood/anxiety/pain. Trazodone 100 mg daily at bedtime for insomnia/mood. -Ativan and Haldol PRN for agitation/aggression -Started thiamine, MVM for etoh use -CIWA protocol with Ativan PRN for ETOH withdrawal -Patient was counselled on substance abuse, he did claim that he is willing to go to [facility] upon discharge. -Patient was informed of the risks, benefits and side effects of the medication and patient verbally consented to taking the medications. Patient signed med consent form and was placed in chart. -Internal Medicine consult to perform medical evaluation and physical. -NRT - nicotine patch -SW on board for discharge planning. Encourage patient to participate in groups to work on coping skills. 01/12/21 09:52 01/12/21 09:55
[2021-01-12] MEDS: FOLIC ACID 1 MG TAB PO SCH (10:49)
[2021-01-12] MEDS: THIAMINE 100 MG TAB PO SCH (10:49)
[2021-01-12 13:12] LABS: Chol/HDL Ratio 4.77; LDL Cholesterol,Calculated 141.2 mg/dL (0.0-131.0); VLDL Calculation 39.8 mg/dL (5.00-40.00)
[2021-01-12 13:48] LABS: Hemoglobin A1C 4.6 % (4.0-6.0)
[2021-01-12] MEDS: LORazepam 1 MG TAB PO PRN (16:43)
[2021-01-12] MEDS ORDERED: traZODone HCL 100 MG TAB PO SCH (21:00)
[2021-01-13] MEDS: LORazepam 1 MG TAB PO PRN ×2 (01:28→17:15)
--- NOTE | 2021-01-13 03:11 | P.MDCNMH ---
History of Present Illness H&P Date: 01/13/21 Chief Complaint: left forearm injury 60 year old male denies any history of mental health problems, and claims to have history of stroke and syncope while he was in [place] couple months ago he claims that he was told he has stroke, with right sided weakenss, left carotid blockage, and seizures. patient became homeless, as his left him, and had to come back to [place]. he recently committed suicide by cutting his left forearm, where he was taken to [facility] and had surgery currently he is being treated for suicidal ideation and acute psychosis that he denies both at this time he denies any fever, chills, chest pain , trouble breathing , nausea vomiting , abd pain or GI bleeding Review of Systems Pertinent positives as noted in HPI. All other systems were reviewed and are negative Past Medical History Past Medical History: CVA/TIA, Liver Disease, Skin Disorder History of Any Multi-Drug Resistant Organisms: None Reported Past Surgical History: Hernia Repair, Orthopedic Surgery Additional Past Surgical History / Comment(s): rt arm, lt wrist Past Anesthesia/Blood Transfusion Reactions: No Reported Reaction Past Psychological History: Anxiety, Depression Smoking Status: Current every day smoker Past Alcohol Use History: Abuse, Daily Past Drug Use History: None Reported - Past Family History family Family Medical History: No Reported History Medications and Allergies Home Medications Medication Instructions Recorded Confirmed Type Aspirin EC [Ecotrin Low Dose] 81 mg PO DAILY 01/11/21 01/11/21 History Ergocalciferol [Vitamin D2 (1250 1,250 mcg PO Q7D 01/11/21 01/11/21 History Mcg = 66529 Iu)] Gabapentin [Neurontin] 600 mg PO TID 01/11/21 01/11/21 History HYDROcodone/APAP 7.5-325MG [[place] 1 tab PO Q6H PRN 01/11/21 01/11/21 History 7.5-325] Pantoprazole Sodium [Protonix] 40 mg PO DAILY 01/11/21 01/11/21 History Sertraline [Zoloft] 100 mg PO DAILY 01/11/21 01/11/21 History traZODone HCL [Desyrel] 100 mg PO HS 01/11/21 01/11/21 History Allergies Allergy/AdvReac Type Severity Reaction Status Date / Time No Known Allergies Allergy Verified 01/11/21 13:37 Physical Exam Vitals: Vital Signs Temp Pulse Resp BP 01/12/21 15:02 93 119/76 01/12/21 06:55 98.5 F 105 H 18 107/76 Constitutional: No acute distress, conversant, pleasant Eyes: Anicteric sclerae, moist conjunctiva, Pupils equal round reactive to light ENMT: NC/AT Oropharynx clear, no erythema, or exudates Neck: Supple, FROM, no masses, or JVD No carotid bruits No thyromegaly Lungs: Clear to auscultation Clear to percussion Normal respiratory effort, no accessory muscle use Cardiovascular: Heart regular in rate and rhythm, No murmurs, gallops, or rubs No peripheral edema Abdominal: Soft Nontender, no guarding, rebound or rigidity Abdomen moving with respiration Normoactive bowel sounds No hepatomegaly, No splenomegaly No palpable mass No abdominal wall hernia noted Skin: Normal temperature, tone, texture, turgor No induration No subcutaneous nodules No rash, lesions left forearm with surgical dressing , drain in site, no bleeding no induration Extremities: left forearm with surgical dressing , drain in site, no bleeding no induration No digital cyanosis No clubbing Pedal pulses intact and symmetrical Radial pulses intact and symmetrical No calf tenderness Psychiatric: Alert and oriented to person, place and time Appropriate affect fair judgement Neuro Muscles Strength 5/5 in all 4 extremities Sensation to light touch grossly present throughout Cranial nerves II-XII grossly intact No focal sensory deficits Lymphatics: no palpable cervical or supraclavicular , or inguinal lymph nodes Cranial Nerve Examination - Cranial Nerves Cranial Nerve II- Optic: Intact Cranial Nerve III- Oculomotor: Intact Cranial Nerve IV- Trochlear: Intact Cranial Nerve V- Trigeminal: Intact Cranial Nerve - Abducens: Intact Cranial Nerve VII- Facial: Intact Cranial Nerve VIII- Auditory: Intact Cranial Nerve IX- Glossopharyngeal: Intact Cranial Nerve X- Vagus: Intact Cranial Nerve XI- Accessory: Intact Cranial Nerve XII- Hypoglossal: Intact Results CBC & Chem 7: 01/11/21 13:16 01/11/21 13:16 Labs: Abnormal Lab Results - Last 24 Hours (Table) 01/11/21 Range/Units 13:16 Triglycerides 199.0 H (0.0-149.0) mg/dL Cholesterol 229 H (0-200) mg/dL LDL Cholesterol, Calc 141.2 H (0.0-131.0) mg/dL Assessment and Plan Assessment: suicide ideation managemetn per psych obtain records from [facility], he claims he had a seizure, stroke and dagnosed with left carotid stenosis left forearm self inflicted cut, s/p surgical repair need follow up on his surgical wound by general surgery hyperlipidemia consider dietry and life style modification , and follow up with PCP on lipid panel , if remains high , or has history of stroke should consider starting cholestrol lowering medicine like Atorvastatin 40 mg QHS Thank you for allowing us to participate in the care of this patient. We will follow peripherally. Do not hesitate to contact us with questions. Someone can be reached from the [facility] hospitalist group at all hours of the day at [phone].
[2021-01-13] MEDS: ASPIRIN 81 MG PO SCH (07:47)
[2021-01-13] MEDS: SERTRALINE 100 MG TAB PO SCH (07:47)
[2021-01-13] MEDS: THIAMINE 100 MG TAB PO SCH (07:47)
[2021-01-13] MEDS: FOLIC ACID 1 MG TAB PO SCH (07:47)
[2021-01-13] MEDS: PANTOPRAZOLE 40 MG TABLET PO SCH (07:47)
[2021-01-13] MEDS: NICOTINE 14MG/24HR PATCH TRANSDERM SCH (07:47)
[2021-01-13] MEDS: GABAPENTIN 300 MG CAP PO SCH ×3 (07:48→22:12)
[2021-01-13] MEDS: HYDROcodone/APAP 5-325MG 1 EACH TAB PO PRN ×3 (07:48→22:11)
--- NOTE | 2021-01-13 12:03 | P.PN ---
Progress Note - Text Progress Note Date: 01/13/21 Interval History: Patient was seen wandering the hallways and was directable and agreeable to sp edink with fha underwriter in the office. Patient continues to ramble and was intrusive at times with fha underwriter. He needs to complain of pain in his back and also on his arm. He states that he is not able to sleep well last night due to the pain. He was requesting to have an increase in his Ativan and Purdy today. He also requested to see the surgeon or threaten to "walk out a year and go to [facility]". He appears to have very poor insight into his condition and also poor judgment. He made threats towards fha underwriter about potentially harming himself if he leaves the hospital. He states that his mood is "the same" and complains of ongoing anxiety. He states that he does want to go to [place] however claims that he also wants to be discharged to "see vascular surgery".. At this time patient denies any suicidal or homical ideations, intent or plan. Patient denies any auditory, visual hallucinations and denies any paranoia or delusions. Patient denies any side effects from the medications and has been compliant with meds. Mental Status Exam: General Appearance: Patient appears to be older than stated age is alert, more directable today. Patient appears to have improving hygiene and grooming. Behavior: Patient is seated without any agitated behavior. guarded Speech: Patient's speech is fluent and nonpressured. Rambles Mood/Affect: Patient reports their mood is "the same", affect is incongruent and constricted. Suicidality/Homicidality: Patient denies having any homicidal ideation intent or plan. Denies any suicidal ideations intent or plan Perceptions: Patient denies any visual hallucinations and denies any auditory hallucinations Though content/process: Patient rambles, tangential. Minimizing his stressors Memory and concentration: AOX3, grossly intact for the purposes of this session. Judgment and insight: chronically poor, improving mildly Assessment Major depressive disorder, recurrent, severe without psychotic features Alcohol dependence Nicotine dependence Plan: -Patient continues to meet criteria for inpatient psychiatric admission for symptom stabilization and safety. Patient has signed adult voluntary form and medication consent and was placed in patient's chart however as patient was previously on a deferral, demand for hearing was filed on 6/[address] date. -Medications: zoloft 100 mg daily for mood/anxiety/pain. Trazodone 100 mg daily at bedtime for insomnia/mood. -When necessary Ativan and Haldol for agitation/aggression. -will check with medicine about any further recommendations about patients arm laceration and bandaging and also will request a surgery consult. -NRT - nicotine patch -SW on board for discharge planning. Encouraged the patient to participate in milieu. Currently awaiting court date. Patient will be given the number for access line once again today by the social science professor and encouraged to call for intake date.
--- NOTE | 2021-01-13 15:31 | P.GSCN ---
History of Present Illness Consult date: 01/13/21 History of present illness: CHIEF COMPLAINT: Left forearm laceration HISTORY OF PRESENT ILLNESS: This is a 60-year-old male with known history of anxiety, depression, CVA. Patient had recently committed suicide by cutting his left forearm. He was taken to her hospital and did have surgery. This occurred about 3 weeks ago. Patient currently has sutures and ports present at each end of the incision. Patient reports that the ports and sutures were to be removed last Monday. Patient denies any fever or chills or sweats. He has had no significant drainage from the incision. He has been changing his dressings daily. Surgical service has been consult in regards to patient's left arm laceration. PAST MEDICAL HISTORY: See list. PAST SURGICAL HISTORY: See list. MEDICATIONS: See list. ALLERGIES: See list. SOCIAL HISTORY: No illicit drug use. REVIEW OF SYSTEMS: CONSTITUTIONAL: Denies fever or chills. HEENT: Denies blurred vision, vision changes, or eye pain. Denies hemoptysis CARDIOVASCULAR: Denies chest pain or pressure. RESPIRATORY: No shortness of breath. GASTROINTESTINAL: Denies any abdominal pain or nausea and vomiting HEMATOLOGIC: Denies bleeding disorders. GENITOURINARY: Denies any blood in urine or increased urinary frequency. SKIN: Denies pruitis. Denies rash. PHYSICAL EXAM: VITAL SIGNS: Reviewed GENERAL: Well-developed in no acute distress. HEENT: No sclera icterus. Extraocular movements grossly intact. Moist buccal mucosa. Head is atraumatic, normocephalic. No nasal drainage. ABDOMEN: Soft. Nondistended. Nontender NEUROLOGIC: Alert and oriented. Cranial nerves II through XII grossly intact. Extremities: Left posterior forearm laceration from wrist to antecubital area. Sutures in place and intact. With one port at each end of the incision. No drainage noted. No erythema. Mild swelling. LABORATORY DATA: WBC 7.7 hemoglobin 11.3 platelets 310 IMAGING: ASSESSMENT: 1. Left forearm laceration due to suicide attempt. Status post surgical intervention 3 weeks ago oral at [facility] [place]. PLAN: -Continue local wound care -Plan to remove sutures tomorrow -Plan to remove incisional ports on Monday01/15/[address] Ball Thank you for this consultation Physician Customer Support Agent note has been reviewed by physician. Signing provider agrees with the documented findings, assessment, and plan of care. Past Medical History Past Medical History: CVA/TIA, Liver Disease, Skin Disorder History of Any Multi-Drug Resistant Organisms: None Reported Past Surgical History: Hernia Repair, Orthopedic Surgery Additional Past Surgical History / Comment(s): rt arm, lt wrist Past Anesthesia/Blood Transfusion Reactions: No Reported Reaction Past Psychological History: Anxiety, Depression Smoking Status: Current every day smoker Past Alcohol Use History: Abuse, Daily Past Drug Use History: None Reported - Past Family History family Family Medical History: No Reported History Medications and Allergies Home Medications Medication Instructions Recorded Confirmed Type Aspirin EC [Ecotrin Low Dose] 81 mg PO DAILY 01/11/21 01/11/21 History Ergocalciferol [Vitamin D2 (1250 1,250 mcg PO Q7D 01/11/21 01/11/21 History Mcg = 31184 Iu)] Gabapentin [Neurontin] 600 mg PO TID 01/11/21 01/11/21 History HYDROcodone/APAP 7.5-325MG [[place] 1 tab PO Q6H PRN 01/11/21 01/11/21 History 7.5-325] Pantoprazole Sodium [Protonix] 40 mg PO DAILY 01/11/21 01/11/21 History Sertraline [Zoloft] 100 mg PO DAILY 01/11/21 01/11/21 History traZODone HCL [Desyrel] 100 mg PO HS 01/11/21 01/11/21 History Allergies Allergy/AdvReac Type Severity Reaction Status Date / Time No Known Allergies Allergy Verified 01/11/21 13:37 Surgical - Exam Vital Signs Temp Pulse Resp BP Pulse Ox 97.5 F L 98 18 120/74 99 01/11/21 12:09 01/11/21 12:09 01/11/21 12:09 01/11/21 12:09 01/11/21 12:09 Results - Labs 01/11/21 13:16 01/11/21 13:16
[2021-01-13] MEDS: traZODone HCL 50 MG TAB PO SCH (22:12)
[2021-01-14] MEDS: FOLIC ACID 1 MG TAB PO SCH (08:07)
[2021-01-14] MEDS: HYDROcodone/APAP 5-325MG 1 EACH TAB PO PRN ×3 (08:07→22:15)
[2021-01-14] MEDS: GABAPENTIN 300 MG CAP PO SCH ×3 (08:07→22:14)
[2021-01-14] MEDS: PANTOPRAZOLE 40 MG TABLET PO SCH (08:09)
[2021-01-14] MEDS: ASPIRIN 81 MG PO SCH (08:09)
[2021-01-14] MEDS: THIAMINE 100 MG TAB PO SCH (08:09)
[2021-01-14] MEDS: NICOTINE 14MG/24HR PATCH TRANSDERM SCH (08:09)
[2021-01-14] MEDS: SERTRALINE 100 MG TAB PO SCH (08:10)
--- NOTE | 2021-01-14 09:33 | P.PN ---
Progress Note - Text Progress Note Date: 01/14/21 Interval History: Patient was seen wandering the hallways and was directable and agreeable to hillary carreon with press writer in the office. Patient continues to ramble during the interview and was tangential at times. He claims that he is doing better overall in terms of his mood and feels less anxious today. He states that he has been taking his medications and trying to let his arm healed. He complains of ongoing pain and claims that "nothing's going to touch that pain". He claimed that he was able to sleep better last night with the increase in trazodone. He claims that the surgeon will be removing the stitches today on his arm and they will be removing the drain tomorrow. He appears to have poor insight into his condition and also poor judgment. He continues to express interest in going to [facility] however has not called the access line. At this time patient denies any suicidal or homical ideations, intent or plan. Patient denies any auditory, visual hallucinations and denies any paranoia or delusions. Patient denies any side effects from the medications and has been compliant with meds. Mental Status Exam: General Appearance: Patient appears to be older than stated age is alert, more directable today. Patient appears to have improving hygiene and grooming. Behavior: Patient is seated without any agitated behavior. Speech: Patient's speech is fluent and nonpressured. Rambles Mood/Affect: Patient reports their mood is "better", affect is incongruent and constricted. Suicidality/Homicidality: Patient denies having any homicidal ideation intent or plan. Denies any suicidal ideations intent or plan Perceptions: Patient denies any visual hallucinations and denies any auditory hallucinations Though content/process: Patient rambles, tangential. Minimizing his stressors Memory and concentration: AOX3, grossly intact for the purposes of this session. Judgment and insight: chronically poor, improving mildly Assessment Major depressive disorder, recurrent, severe without psychotic features Alcohol dependence Nicotine dependence Plan: -Patient continues to meet criteria for inpatient psychiatric admission for symptom stabilization and safety. Patient has signed adult voluntary form and medication consent and was placed in patient's chart however as patient was previously on a deferral, demand for hearing was filed on 01/[address] date. -Medications: zoloft 100 mg daily for mood/anxiety/pain. Trazodone 150 mg daily at bedtime for insomnia/mood. -When necessary Ativan and Haldol for agitation/aggression. -will check with medicine about any further recommendations about patients arm laceration and bandaging and also will request a surgery consult. -NRT - nicotine patch -SW on board for discharge planning. Encouraged the patient to participate in milieu. Currently awaiting court date. Patient will be given the access line number once again today and will make the call to rehab tomorrow to set up for rehab next week after he has his surgery completed on monday for his arm.
--- NOTE | 2021-01-14 14:47 | P.PN ---
Subjective Progress Note Date: 01/14/21 CHIEF COMPLAINT: Left forearm laceration HISTORY OF PRESENT ILLNESS: Surgical service is following in regards to patient's left forearm laceration. Patient has minimal yellowish drainage noted on bandage. His pain is controlled. He is afebrile. Patient seen and examined with Dr. webb PHYSICAL EXAM: VITAL SIGNS: Reviewed. GENERAL: Well-developed in no acute distress. HEENT: No sclera icterus. Extraocular movements grossly intact. Moist buccal mucosa. Head is atraumatic, normocephalic. ABDOMEN: Soft. Nondistended. Nontender. NEUROLOGIC: Alert and oriented. Cranial nerves II through XII grossly intact. Extremities: Left posterior forearm laceration from wrist to antecubital area. Sutures in place and intact. Has drain. No erythema. Mild swelling. ASSESSMENT: 1. Left forearm laceration due to suicide attempt. Status post surgical intervention 3 weeks ago at [facility] [place]. PLAN: -Dr. Webb removed incisional drain at bedside. Patient's needs to keep sutures in place. Continue with local wound care and to change dressing daily. Physician Combination Worker note has been reviewed by physician. Signing provider agrees with the documented findings, assessment, and plan of care. Objective - Vital Signs Vital signs: Vital Signs Temp 97.7 F 01/14/21 07:24 Pulse 92 01/14/21 07:24 Resp 16 01/14/21 07:24 BP 104/58 01/14/21 07:24 Pulse Ox 97 01/14/21 07:24 - Labs CBC & Chem 7: 01/11/21 13:16 01/11/21 13:16
[2021-01-14] MEDS: traZODone HCL 50 MG TAB PO SCH (22:14)
[2021-01-15] MEDS: GABAPENTIN 300 MG CAP PO SCH ×3 (07:55→21:05)
[2021-01-15] MEDS: HYDROcodone/APAP 5-325MG 1 EACH TAB PO PRN ×2 (07:55→21:03)
[2021-01-15] MEDS: FOLIC ACID 1 MG TAB PO SCH (07:56)
[2021-01-15] MEDS: PANTOPRAZOLE 40 MG TABLET PO SCH (07:57)
[2021-01-15] MEDS: NICOTINE 14MG/24HR PATCH TRANSDERM SCH (07:57)
[2021-01-15] MEDS: SERTRALINE 100 MG TAB PO SCH (07:57)
[2021-01-15] MEDS: THIAMINE 100 MG TAB PO SCH (07:57)
[2021-01-15] MEDS ORDERED: LORazepam 0.5 MG TAB PO PRN (09:32)
--- NOTE | 2021-01-15 11:25 | PN ---
PROGRESS NOTE DATE OF SERVICE: 01/15/2021 CHIEF COMPLAINT: The patient presented to the ED claiming he was going to "drink myself to ." He had attempted suicide by cutting his arm and had significant lacerations to his left forearm. INTERVAL HISTORY: Patient has been doing fairly well. He had a quiet day yesterday. He comes out on the unit. He does interact with others. He seems to have fairly high energy. He attended groups yesterday. His highest CIWA score yesterday was 4. He said he slept fair last night. A main complaint that he has is pain relating to his left forearm laceration. He said he slept fairly well last night. Today he has been up and seems to be fairly active out on the unit. He was very focused on making telephone calls for a substance abuse referral to [facility]. He had telephone numbers to get in touch with his coverage as the first step. He has been taking [place] and received 3 doses of 5 mg yesterday at 0800, 1500 and 2200 hours. He received one dose this morning at 0800. He has not been receiving any Ativan p.r.n. His vital signs have been stable with vital signs this morning at 0700 including BP 118/70, pulse 101 and regular, temp 97.8, respirations 18, oxygen saturation 99. His CIWA scores have been 1 and zero today. He tolerates his psychotropic medications. MENTAL STATUS: Patient was quite restless. He gave a good eye contact. He rambled quite a bit. He would respond to questions though typically he would start going off talking about various issues especially relating to the telephone calls he needed to make. His affect was somewhat intense. He had a friendly manner. His mood was reserved though not clearly down or depressed. He did not appear to be significantly distressed, though he had a worried manner, focused on getting a referral to [facility]. There was no indication of thought disorder. He was oriented to his circumstances and surroundings. ASSESSMENT: I will continue the current diagnosis and treatment plan. We will continue to engage the patient in individual and group therapeutic activities. It is noteworthy that the patient was somewhat uncertain about his treatment order status and I did refer review with him that he is on a court ordered treatment for 6 months of treatment, going back to his admission of October 26, 2020. Noted that since he had surgery complete 1 week ago for his left wrist, I discussed that his acute pain issues relating to surgery are likely fairly low and as such I started him on Tylenol and advised him that if he is having pain issues to use Tylenol first. We discussed withdrawal issues. He does not appear to be having acute withdrawal issues from alcohol and is beyond the risk point for DTs, the best I am able to tell. I discussed that he will need to taper off opioids as well before he goes into full withdrawal. I will discontinue Ativan. I encouraged the patient to work with Social Work in regard to making contact to get set up for referral to [facility]. We will focus on stabilization and discharge planning. MMSTEFANY / MIKEN: [id number] /
[2021-01-15] MEDS: ACETAMINOPHEN TAB 325 MG TAB PO PRN (14:36)
[2021-01-15] MEDS: traZODone HCL 50 MG TAB PO SCH (21:04)
[2021-01-16 06:38] VITALS: TEMP 97.6
[2021-01-16] MEDS: NICOTINE 14MG/24HR PATCH TRANSDERM SCH (08:52)
[2021-01-16] MEDS: FOLIC ACID 1 MG TAB PO SCH (08:53)
[2021-01-16] MEDS: PANTOPRAZOLE 40 MG TABLET PO SCH (08:53)
[2021-01-16] MEDS: GABAPENTIN 300 MG CAP PO SCH ×3 (08:53→20:54)
[2021-01-16] MEDS: THIAMINE 100 MG TAB PO SCH (08:53)
[2021-01-16] MEDS: SERTRALINE 100 MG TAB PO SCH (08:53)
[2021-01-16] MEDS: HYDROcodone/APAP 5-325MG 1 EACH TAB PO PRN ×2 (08:54→20:55)
[2021-01-16] MEDS: ASPIRIN 81 MG PO SCH (10:56)
--- NOTE | 2021-01-16 14:38 | P.PN ---
Progress Note - Text Progress Note Date: 01/16/21 Clinical Problems: Suicide attempt by laceration of the left forearm, major depressive disorder recurrent severe without psychotic features, alcohol use disorder severe, tobacco use disorder Interim history: I reviewed the medical record and interviewed the patient. He is concerned about the length of hospitalization and requested to be discharged on Monday alleging that his family are arranging for him to have a home. He continues to have numbness and tingling his left hand. He also demonstrated an ability to extend his left wrist. Surgery notes appreciated. He is denying feelings of depression or thoughts of or suicide. He suspects regret over the suicide attempt. He is contemplating a residential substance abuse treatment program but would not commit to a referral. He is attending therapeutic groups and activities. He slept 6 hours last night. He is posed no management problem and had no episodes of behavioral dyscontrol. Mental status exam: Presented as a bearded 60-year-old male. He made eye contact and attended to the interview. The wound dressing on his left forearm was intact and without sustaining. He showed no abnormality of psychomotor activity. His speech was spontaneous with normal rate, rhythm and volume. His affect was bright stable and appropriate. He denied suicidal ideation and wishes. He denied homicidal ideation. He denied having feelings of hopelessness, helplessness or worthlessness. He did not express ideas reference, paranoid ideation or delusions. His thinking was concrete but his associations were coherent, logical goal directed. He did not express ideas reference, paranoid ideation or delusions. He denied hallucinations did not appear to responding to internal stimuli. Assessment: He is status post suicide attempt by laceration of his left forearm with residual neurological impairment. His overall clinical status appears much improved from admission and is denying depression and thoughts of or suicide. Plan: Continue current treatment plan. Safety precautions. Continue current p sychotropic medications including Zoloft 100 mg daily, and Desyrel 150 mg at bedtime. Neurontin 600 3 times a day for neuropathic pain. Narco and/or Tylenol for pain. Habitrol for smoking cessation. Encouraged participation in therapeutic groups and activities. Evaluate clinical status response to treatment daily basis.
[2021-01-16] MEDS: ACETAMINOPHEN TAB 325 MG TAB PO PRN (15:44)
--- NOTE | 2021-01-16 17:58 | P.PN ---
Subjective Progress Note Date: 01/16/21 Principal diagnosis: left arm laceration Patient is a 60 yo M with recent self inflicted wound to left arm. Patient c/o pain, asking for a brace as he cannot keep his wrist elevated and has to hold it up all day. He is unable to approximate his thumb to fingers, denies any significant pain General: non toxic, no distress, appears at stated age Derm: warm, dry, left form with matress sutures in place, appear to be prolene, no warmth, no erythema, no drainage. Head: atraumatic, normocephalic, symmetric Eyes: EOMI, no lid lag, anicteric sclera Mouth: no lip lesion, mucus membranes moist Neuro: patient can flex but not extend his wrist, he cannot approximate thumb to any of his fingers Psych: Alert, oriented, appropriate affect left forearm laceration with sutures inplace - await records from [place] - consult occupational surgery - pain control - maintain sutures at this time. Objective - Vital Signs Vital signs: Vital Signs Temp 97.6 F 01/16/21 06:36 Pulse 80 01/16/21 06:36 Resp 16 01/16/21 06:36 BP 135/75 01/16/21 06:36 Pulse Ox 99 01/15/21 06:58 - Labs CBC & Chem 7: 01/11/21 13:16 01/11/21 13:16
[2021-01-16] MEDS: traZODone HCL 50 MG TAB PO SCH (20:54)
[2021-01-17] MEDS: GABAPENTIN 300 MG CAP PO SCH ×3 (07:48→21:14)
[2021-01-17] MEDS: PANTOPRAZOLE 40 MG TABLET PO SCH (07:49)
[2021-01-17] MEDS: THIAMINE 100 MG TAB PO SCH (07:49)
[2021-01-17] MEDS: ASPIRIN 81 MG PO SCH (07:49)
[2021-01-17] MEDS: NICOTINE 14MG/24HR PATCH TRANSDERM SCH (07:49)
[2021-01-17] MEDS: FOLIC ACID 1 MG TAB PO SCH (07:49)
[2021-01-17] MEDS: SERTRALINE 100 MG TAB PO SCH (07:49)
--- NOTE | 2021-01-17 12:35 | P.PN ---
Progress Note - Text Progress Note Date: 01/17/21 Clinical Problems: Suicide attempt by laceration of the left forearm, major depressive disorder recurrent severe without psychotic features, alcohol use disorder severe, tobacco use disorder Interim history: I reviewed the medical record and interviewed the patient. He was concerned about continued hospitalization and complained of increased pain in his left arm. He would like to be discharged as soon as possible because he believes that he cannot receive the medical care he needs while he is on the inpatient psychiatric unit. He requested an increase in [place] for the arm pain. Medical consult appreciated. Mental status exam: He presented as a bearded 60-year-old male. He made eye contact and attended to the interview. The wound dressing on his left forearm was intact and without staining. He showed no abnormality of psychomotor activity. His speech was spontaneous with normal rate, rhythm and volume. His affect was bright was irritable but controlled. He denied suicidal ideation and wishes. He denied homicidal ideation. He denied having feelings of hopelessness, helplessness or worthlessness. He did not express ideas reference, paranoid ideation or delusions. His thinking was concrete but his associations were coherent, logical goal directed. He did not express ideas reference, paranoid ideation or delusions. He denied hallucinations did not appear to responding to internal stimuli. Assessment: He is status post suicide attempt by laceration of his left forearm with residual neurological impairment. His overall clinical status appears much improved from admission and is denying depression and thoughts of or suicide. Plan: Continue current treatment plan. Safety precautions. Continue current psychotropic medications including Zoloft 100 mg daily, and Desyrel 150 mg at bedtime. Neurontin 600 3 times a day for neuropathic pain. Increased Narco to 0.5 mg every 6 hours when necessary for pain (this is dose he was prescribing was on medicine service). Habitrol for smoking cessation. Encouraged participation in therapeutic groups and activities. Evaluate clinical status response to treatment daily basis.
[2021-01-17] MEDS: HYDROcodone/APAP 7.5-325MG 1 EACH TAB PO PRN ×2 (13:53→21:14)
[2021-01-17] MEDS: traZODone HCL 50 MG TAB PO SCH (21:15)
[2021-01-18] MEDS: FOLIC ACID 1 MG TAB PO SCH (08:02)
[2021-01-18] MEDS: THIAMINE 100 MG TAB PO SCH (08:02)
[2021-01-18] MEDS: ASPIRIN 81 MG PO SCH (08:02)
[2021-01-18] MEDS: SERTRALINE 100 MG TAB PO SCH (08:02)
[2021-01-18] MEDS: GABAPENTIN 300 MG CAP PO SCH ×3 (08:02→21:33)
[2021-01-18] MEDS: PANTOPRAZOLE 40 MG TABLET PO SCH (08:02)
[2021-01-18] MEDS: NICOTINE 14MG/24HR PATCH TRANSDERM SCH (08:02)
[2021-01-18] MEDS: HYDROcodone/APAP 7.5-325MG 1 EACH TAB PO PRN (08:05)
[2021-01-18] MEDS ORDERED: HYDROcodone/APAP 7.5-325MG 1 EACH TAB PO PRN (10:14)
--- NOTE | 2021-01-18 11:30 | P.PN ---
Progress Note - Text Progress Note Date: 01/18/21 Interval History: Patient was seen wandering the hallways and was directable and agreeable to hillary carreon with literary writer in the office. Patient continues to ramble during the interview and was tangential at times however today attempts to cooperate once again. He continues to state that he does want to go to rehab however was fairly preoccupied with his arm and also his neck in terms of getting evaluated by a vascular surgeon once he is discharged. He claims that he did not want to drink alcohol any longer and wants to get his medical issues treated first. He states he has not heard from the district attorney about his demand hearing. He claims that his arm has been doing better in terms of healing and still has stitches in place. He claims that he is doing better overall in terms of his mood and feels less anxious today. He claims that he is able to sleep better at nighttime on the trazodone. He appears to have poor insight into his condition and also poor judgment. He claims that he still has not called for rehab however he states that he does have the numbers for it and claims that he does not know what insurance he has at this time. At this time patient denies any suicidal or homical ideations, intent or plan. Patient denies any auditory, visual hallucinations and denies any paranoia or delusions. Patient denies any side effects from the medications and has been compliant with meds. Mental Status Exam: General Appearance: Patient appears to be older than stated age is alert, more directable today. Patient appears to have improving hygiene and grooming. Behavior: Patient is seated without any agitated behavior. Speech: Patient's speech is fluent and nonpressured. Rambles Mood/Affect: Patient reports their mood is "ok", affect is congruent and constricted. Suicidality/Homicidality: Patient denies having any homicidal ideation intent or plan. Denies any suicidal ideations intent or plan Perceptions: Patient denies any visual hallucinations and denies any auditory hallucinations Though content/process: Patient rambles, tangential. Minimizing his stressors Memory and concentration: AOX3, grossly intact for the purposes of this session. Judgment and insight: chronically poor, improving mildly Assessment Major depressive disorder, recurrent, severe without psychotic features Alcohol dependence Nicotine dependence Plan: -Patient continues to meet criteria for inpatient psychiatric admission for symptom stabilization and safety. Patient has signed adult voluntary form and medication consent and was placed in patient's chart however as patient was previously on a deferral, demand for hearing was filed on 01/[address] date. -Medications: zoloft 100 mg daily for mood/anxiety/pain. Trazodone 150 mg daily at bedtime for insomnia/mood. Cutting back on patient's [place] at this time to every 8 hours when necessary. Patient is also on gabapentin for pain. -When necessary Ativan and Haldol for agitation/aggression. -Lelandcaro received patients records for his hospitalization at [facility] and RN today to [facility] to update them on patients condition and have them review his medical/surgical records to see if they will be able to remove sutures or if patient will need to f/u with the surgeon at [place] upon discharge. -NRT - nicotine patch -SW on board for discharge planning. Encouraged the patient to participate in milieu. Currently awaiting court date. Patient will be given the access line number once again today to call in for rehab.
[2021-01-18] MEDS: traZODone HCL 50 MG TAB PO SCH (21:33)
[2021-01-19 07:30] VITALS: BP 165/68; PULSE 85; RESP 18
[2021-01-19] MEDS: FOLIC ACID 1 MG TAB PO SCH (09:34)
[2021-01-19] MEDS: SERTRALINE 100 MG TAB PO SCH (09:34)
[2021-01-19] MEDS: NICOTINE 14MG/24HR PATCH TRANSDERM SCH (09:34)
[2021-01-19] MEDS: ASPIRIN 81 MG PO SCH (09:34)
[2021-01-19] MEDS: THIAMINE 100 MG TAB PO SCH (09:35)
[2021-01-19] MEDS: PANTOPRAZOLE 40 MG TABLET PO SCH (09:35)
[2021-01-19] MEDS: GABAPENTIN 300 MG CAP PO SCH ×3 (09:36→21:05)
--- NOTE | 2021-01-19 09:51 | P.PN ---
Progress Note - Text Progress Note Date: 01/19/21 Interval History: Patient was seen wandering the hallways and was directable and agreeable to sp lauri with life insurance underwriter in the office. Patient appeared to be somewhat argumentative today with life insurance underwriter and claims that "I'm rebelling against you" as he was talking about his medications and states that "I didn't take any of them this morning". He appears to be mildly more irritable today with the life insurance underwriter and oppositional as well. He claims that his mood is "fine" and continues to focus on discharge and minimizing his symptoms. He at first claims that he will be taking his medications then states that "I don't need anything". He claims that he is agreeable to sign the wave and stip to forego court and is agreeable to the treatment order. He was complaining about his roommate today. He states that she needs to have his arm looked at by the surgeon and once again was demanding to be discharged. He states that he was able to sleep fairly last night however did not take his trazodone. He appears to have poor insight into his condition and also poor judgment. He claims that he still has not called for rehab however he states that he does have the numbers for it and claims that he does not know what insurance he has at this time. At this time patient denies any suicidal or homical ideations, intent or plan. Patient denies any auditory, visual hallucinations and denies any paranoia or delusions. Patient denies any side effects from the medications and has been compliant with meds. Mental Status Exam: General Appearance: Patient appears to be older than stated age is alert, argumentative today. Patient appears to have improving hygiene and grooming. Behavior: Patient is seated without any agitated behavior. Speech: Patient's speech is fluent and nonpressured. Rambles Mood/Affect: Patient reports their mood is "ok", affect is incongruent and constricted. Suicidality/Homicidality: Patient denies having any homicidal ideation intent or plan. Denies any suicidal ideations intent or plan Perceptions: Patient denies any visual hallucinations and denies any auditory hallucinations Though content/process: Patient rambles, tangential. Minimizing his stressors Memory and concentration: AOX3, grossly intact for the purposes of this session. Judgment and insight: chronically poor, improving mildly Assessment Major depressive disorder, recurrent, severe without psychotic features Alcohol dependence Nicotine dependence personality disorder unspecified Plan: -Patient continues to meet criteria for inpatient psychiatric admission for symptom stabilization and safety. Patient has signed adult voluntary form and medication consent and was placed in patient's chart however as patient was previously on a deferral, demand for hearing was filed on 01/[address] date. -Medications: Zoloft 100 mg daily for mood/anxiety/pain. Trazodone 150 mg daily at bedtime for insomnia/mood. Cutting back on patient's [place] at this time. cont gabapentin for pain. -When necessary Ativan and Haldol for agitation/aggression. -Have received patients records for his hospitalization at [facility]. Nurse yesterday informed surger sarkis painter of the records and will wait and see any further advice/recs or if patient will need to f/u with his surgeon and [facility] d/c -NRT - nicotine patch -SW on board for discharge planning. Encouraged the patient to participate in milieu. Currently awaiting court date, patient claims that he will likely want to sign a waive and stip. Patient will be given the access line number once again today to call in for rehab.
[2021-01-19] MEDS: traZODone HCL 50 MG TAB PO SCH (21:04)
[2021-01-20] MEDS: ASPIRIN 81 MG PO SCH (09:23)
[2021-01-20] MEDS: GABAPENTIN 300 MG CAP PO SCH ×3 (09:24→21:33)
[2021-01-20] MEDS: PANTOPRAZOLE 40 MG TABLET PO SCH (09:24)
[2021-01-20] MEDS: FOLIC ACID 1 MG TAB PO SCH (09:24)
[2021-01-20] MEDS: THIAMINE 100 MG TAB PO SCH (09:24)
[2021-01-20] MEDS: SERTRALINE 100 MG TAB PO SCH (09:24)
[2021-01-20] MEDS: NICOTINE 14MG/24HR PATCH TRANSDERM SCH (09:24)
--- NOTE | 2021-01-20 11:42 | P.PN ---
Progress Note - Text Progress Note Date: 01/20/21 Patient was seen in the office for regular follow-up evaluation. His condition was discussed with the treatment team this morning. Apparently he is homeless, but, his sister is willing to take him to [facility] for the wound care after she is discharged from here. He has several diagnoses in his chart. He insists that for reasons not clear he wanted to come back to this hospital and was drinking 1 or 2 of beer, was upset against the doctors for doing so surgeries on him, putting titanium etc. got mad and slashed his left forearm requiring stitches. He insists that he does not drink alcohol on a regular basis. He does not view enough information to make any psychiatric diagnosis except for personality disorder unspecified. Apparently following his cutting his forearm he bled a lot and his CBC shows anemia of normochromic and normocytic type which is indicative of blood loss than other reasons for anemia. Apparently this hospital does not want to attend his wound care in a major fashion since he is considered high risk. He is on several medications including when necessary Narco Zoloft in the morning and trazodone at night. He has not been taking his Zoloft at home. But he said he has been taking his Neurontin and would like to continue that since he has some kind of neurological pain on his fingers. He has not been taking Narco on a regular basis and is willing to cancel the Zoloft. He continues to deny suicide and homicide thoughts. This is a right ambulatory male with adequate hygiene. He is friendly and cheerful and cooperative. Does not show any psychomotor agitation or retardation. Speech is spontaneous relevant and goal-directed. Mood is c heerful and affect is appropriate to the thought content. He denies hallucinations delusional thinking suicide and homicide thoughts. He plans on going to [facility] for the wound care. Assessment: Personality disorder unspecified. Self inflicted wound all of left forearm which is sutured. Plan: Discontinue Zoloft and PRN Narco. Continue other medications. Consider discharging him when the treatment team agrees with that.
[2021-01-20] MEDS: traZODone HCL 50 MG TAB PO SCH (21:33)
--- NOTE | 2021-01-21 08:25 | P.PN ---
Progress Note - Text Progress Note Date: 01/21/21 S&O: Patient was seen for routine follow-up examination. He was seen in the office. He said he is doing well and the nurses had told him that he is leaving today. When I checked with the nurses and was told that we are waiting for the child welfare social worker to tell us the discharge plans were completed. Patient was counseled about it and he agreed to wait until after the treatment team meeting this morning. He continues to say that he had tried very hard to get admitted here in the hopes that he will get something done about his clogged neck arteries and other physical problems. So he said he had one beer and poor the other beer on his body so that he will smell of alcohol for getting here in addition to cutting his forearm. He said Neurontin is not doing anything for him and would like to get it discontinued. It is not clear if it was prescribed for neuropathic pain or seizures. He said after he had his covert chart he started to develop headaches and at one point he had weakness of right side of the body and his mind went blank. He was advised not go. Neurontin all of a sudden since it is possible that it was prescribed for seizures and not for neuropathic pain. He agreed to follow this advice. He said his mother will pick him up and take him to his sister's house from where he will go to [facility] and get his sutures removed. He does not have any other complaints or concerns. This is a white ambulatory male with adequate hygiene. He is polite and cheerful friendly and cooperative. He does not show any psychomotor agitation or retardation. His speech is spontaneous relevant and goal-directed. His mood is cheerful and affect is appropriate and broad in range. He continues to deny hallucinations, or delusional thinking, suicidal and homicidal thoughts. He said he is thinking of getting an apartment and staying with his mother lungs his sutures are remote and feels better. He is well oriented with good memory general fund of knowledge concentration etc. A: Personality disorder unspecified, self inflicted laceration of left forearm. Plan: Discontinue folic acid and thiamine. Consider discharging him after the meeting this morning if the plan is completed.
[2021-01-21] MEDS: NICOTINE 14MG/24HR PATCH TRANSDERM SCH (08:52)
[2021-01-21] MEDS: ASPIRIN 81 MG PO SCH (08:53)
[2021-01-21] MEDS: GABAPENTIN 300 MG CAP PO SCH (08:53)
[2021-01-21] MEDS: PANTOPRAZOLE 40 MG TABLET PO SCH (08:53)
--- NOTE | 2021-01-21 12:11 | P.DS ---
Providers Date of admission: 01/11/21 22:21 Expected date of discharge: 01/21/21 Attending physician: Osbaldo Sarmiento MD Consults: 01/11/21 23:31 Consult Physician Routine Consulting Provider: Joy Shah Consult Reason/Comments: H&P and medical and left arm surgical site Do you want consulting provider notified?: Yes 01/13/21 12:19 Consult Physician Routine Consulting Provider: Garrison Ball Consult Reason/Comments: left arm wound Do you want consulting provider notified?: Yes Primary care physician: Stated None Hospital Course: Patient had his physical examination in the medical floor prior to his transfer here. He had his psychiatric H&P done by Dr. Sarmiento on 01/12/2021. After the psychiatric H&P he was continued on his general medicine medications include Neurontin and when necessary Narco. He was also started on folic acid and thiamine since alcohol use disorder was suspected. However folic acid and thiamine were discontinued since he said he was not drinking alcohol regularly and had one beer and poured the second beer on the deed to smell alcohol so that he can come to the hospital besides cutting his left forearm. His when necessary Narco was discontinued since he was not using it and did not want to take it any longer. He wanted to stop Neurontin. But he was counseled not to stop it all of a sudden since there is a possibility of getting withdrawal seizures. He agreed to taper it off if he can. After psychiatric H&P he also had individual and group therapy in addition to recreational and occupational therapy. His mood improved, was sleeping well and continued to deny suicide and homicide thoughts. His one-to-one supervision and finger food restrictions where lifted. He had signed a paper with his teacher's assistant is agreeing that he will continue with outpatient treatment. All these things were discussed with the treatment team and it was agreed to discharge him. Ental status at the time of discharge: his is a white ambulatory male with adequate hygiene. He is polite and cheerful friendly and cooperative. He does not show any psychomotor agitation or retardation. His speech is spontaneous relevant and goal-directed. His mood is cheerful and affect is appropriate and broad in range. He continues to deny hallucinations, or delusional thinking, suicidal and homicidal thoughts. He said he is thinking of getting an apartment and staying with his mother lungs his sutures are remote and feels better. He is well oriented with good memory general fund of knowledge concentration etc. Discharge diagnosis: Personality disorder unspecified, self inflicted laceration of left forearm. GERD, history of questionable stroke. Patient Condition at Discharge: Good Plan - Discharge Summary New Discharge Prescriptions: No Action Gabapentin [Neurontin] 600 mg PO TID Aspirin EC [Ecotrin Low Dose] 81 mg PO DAILY traZODone HCL [Desyrel] 100 mg PO HS Sertraline [Zoloft] 100 mg PO DAILY Thiamine [Vitamin B-1] 100 mg PO DAILY LORazepam [Ativan] 1 mg PO Q4H PRN PRN Reason: Anxiety HYDROcodone/APAP 5-325MG [[place] 5-325] 1 tab PO Q6HR PRN PRN Reason: Pain Folic Acid 1 mg PO DAILY Pantoprazole Sodium [Protonix] 40 mg PO DAILY Nicotine 14Mg/24Hr Patch [Habitrol 14Mg/24Hr Patch] 1 patch TRANSDERM DAILY haloperidoL [Haldol] 5 mg PO Q6H PRN PRN Reason: Agitation Discharge Medication List Aspirin EC [Ecotrin Low Dose] 81 mg PO DAILY 01/11/21 [History] Gabapentin [Neurontin] 600 mg PO TID 01/11/21 [History] Pantoprazole Sodium [Protonix] 40 mg PO DAILY 01/11/21 [History] Sertraline [Zoloft] 100 mg PO DAILY 01/11/21 [History] traZODone HCL [Desyrel] 100 mg PO HS 01/11/21 [History] Folic Acid 1 mg PO DAILY 01/14/21 [History] HYDROcodone/APAP 5-325MG [[place] 5-325] 1 tab PO Q6HR PRN 01/14/21 [History] LORazepam [Ativan] 1 mg PO Q4H PRN 01/14/21 [History] Nicotine 14Mg/24Hr Patch [Habitrol 14Mg/24Hr Patch] 1 patch TRANSDERM DAILY 01/14/21 [History] Thiamine [Vitamin B-1] 100 mg PO DAILY 01/14/21 [History] haloperidoL [Haldol] 5 mg PO Q6H PRN 01/14/21 [History] Follow up Appointment(s)/Referral(s): None,Stated [Primary Care Provider] - 1-2 days Activity/Diet/Wound Care/Special Instructions: Activity and diet as tolerated. Avoid the use of street drugs and alcohol. Take all medications as prescribed. When you are in need of refills on your medications please contact your medical provider and/or outpatient psychiatrist to have this done. Please go to scheduled outpatient appointment for aftercare treatment. If symptoms return or become worse, call the crisis line at and/or go to the nearest emergency room for evaluation. Pending Studies Pending Results: None
[2021-01-21 13:10] VITALS: BMI 24.1
== END 2021-01-21 14:32 | disposition home or self-care (01) | DRG 885 ==
LOC: EC 12:06 → 3MHU 22:21
PROVIDERS: ADMIT Psychiatry & Neurology Psychiatry; ATTEND Psychiatry & Neurology Psychiatry
DX: F33.2 Major depressive disorder, recurrent severe without psychotic features (principal); F60.9 Personality disorder, unspecified; S51.812D Laceration without foreign body of left forearm, subsequent encounter; X78.9XXD Intentional self-harm by unspecified sharp object, subsequent encounter; I65.22 Occlusion and stenosis of left carotid artery; D64.9 Anemia, unspecified; E16.2 Hypoglycemia, unspecified; F10.229 Alcohol dependence with intoxication, unspecified; F17.210 Nicotine dependence, cigarettes, uncomplicated; F41.9 Anxiety disorder, unspecified; Z86.73 Personal history of transient ischemic attack (TIA), and cerebral infarction without residual deficits; Z20.822 Contact with and (suspected) exposure to COVID-19; K21.9 Gastro-esophageal reflux disease without esophagitis; Y90.2 Blood alcohol level of 40-59 mg/100 ml; Z59.0 Homelessness; Z79.82 Long term (current) use of aspirin; Z79.899 Other long term (current) drug therapy; Z91.5 Personal history of self-harm
CPT/HCPCS: 36415; 80053; 80061; 80143; 80179; 80306; 80320; 82075; 83036; 84443; 85025; 87635; 99285

== ENCOUNTER 2021-01-22 06:10 | Emergency (ER) | payer OTHER ==
[2021-01-22 06:21] VITALS: BP 137/80; PULSE 111; RESP 18; TEMP 98.3
--- NOTE | 2021-01-22 07:06 | ED ---
Recheck HPI - General Chief Complaint: Recheck/Abnormal Lab/Rx Stated Complaint: LT arm postop issues Time Seen by Provider: 01/22/21 06:23 Source: patient Mode of arrival: ambulatory Limitations: no limitations - History of Present Illness Initial Comments: Patient is a 60-year-old male presenting to the emergency department requesting sutures removed from his left forearm. Patient was recently admitted to our psych unit, has a large surgical wound to his left forearm secondary to having surgery in [place] after a suicide attempt and a large laceration to his left forearm. He states surgery was about 3 weeks ago, they did not take his sutures out why he was here in the ER. Patient was told he needs to go up to [place] to have the removed. Patient states he does not have a car, does not have any way up to [place] to have them out. He is concerned that they are lying to start an infection in the skin is getting continue to grow over them. He is requesting to have them out. He denies any suicidal or homicidal thoughts today. Patient denies any fevers or chills, he has no further complaints today. - Related Data Home Medications Medication Instructions Recorded Confirmed Aspirin EC [Ecotrin Low Dose] 81 mg PO DAILY 01/11/21 01/14/21 Gabapentin [Neurontin] 600 mg PO TID 01/11/21 01/14/21 Pantoprazole Sodium [Protonix] 40 mg PO DAILY 01/11/21 01/14/21 Sertraline [Zoloft] 100 mg PO DAILY 01/11/21 01/14/21 traZODone HCL [Desyrel] 100 mg PO HS 01/11/21 01/14/21 Nicotine 14Mg/24Hr Patch [Habitrol 1 patch TRANSDERM DAILY 01/14/21 01/21/21 14Mg/24Hr Patch] Allergies Allergy/AdvReac Type Severity Reaction Status Date / Time No Known Allergies Allergy Verified 01/22/21 06:17 Review of Systems ROS Statement: Those systems with pertinent positive or pertinent negative responses have been documented in the HPI. ROS Other: All systems not noted in ROS Statement are negative. Past Medical History Past Medical History: CVA/TIA, Liver Disease, Skin Disorder History of Any Multi-Drug Resistant Organisms: None Reported Past Surgical History: Hernia Repair, Orthopedic Surgery Additional Past Surgical History / Comment(s): rt arm, lt wrist. left forearm incisional ports Past Anesthesia/Blood Transfusion Reactions: No Reported Reaction Past Psychological History: Anxiety, Depression Smoking Status: Current every day smoker Past Alcohol Use History: Occasional Past Drug Use History: None Reported - Past Family History family Family Medical History: No Reported History General Exam - General Exam Comments Initial Comments: GENERAL: Patient is well-developed and well-nourished. Patient is nontoxic and in no acute distress. HEAD: Atraumatic, normocephalic. EYES: Pupils equal round and reactive to light, extraocular movements intact, sclera anicteric, conjunctiva are normal. Eyelids were unremarkable. LUNGS: Unlabored respirations. Breath sounds clear to auscultation bilaterally and equal. No wheezes rales or rhonchi. HEART: Regular rate and rhythm without murmurs, rubs or gallops. ABDOMEN: Soft, nontender, normoactive bowel sounds. No guarding, no rebound. No masses appreciated. MUSCULOSKELETAL: Normal extremities with adequate strength and normal range of motion, no pitting or edema. No clubbing or cyanosis. NEUROLOGICAL: Patient is alert and oriented x 3. Symmetrical smile. Normal speech, normal gait. PSYCH: Normal mood, normal affect. SKIN: Warm, Dry, normal turgor, no rashes. Patient has a healing surgical incision to his left forearm that is approximately 12 cm long. He has 13 surgical sut ures in place, there are scabs along the suture sites with skin growing over them. There is no erythema, no swelling, no signs of an infection at this time. Limitations: no limitations Course Vital Signs 01/22/21 06:17 Temperature 98.3 F Pulse Rate 111 H Respiratory 18 Rate Blood Pressure 137/80 O2 Sat by Pulse 100 Oximetry Procedures - Procedures Initial comment: 13 sutures were removed from the left forearm, patient tolerated procedure well. Medical Decision Making - Medical Decision Making Patient is a 60-year-old male here requesting sutures removed from the left forearm. He states he had surgery about 3 weeks ago at [facility] secondary to suicide attempt. He has [address]. He states he was told to go to [facility] to have the removed secondary to this being a surgical incision. Patient states he has no way up to the hospital and is requesting to have them removed today. I discussed with him the competition that could arise from us removing him such as internal sutures, infection, wound complications otherwise. Patient states he understands these concerns and, complications that could arise and still wishes us to remove them. I did remove 13 sutures from the left forearm without complication. He tolerated procedure well. There is minimal bleeding from the suture sites. Patient's wound was bandaged, he is stable for discharge. I recommended following up with a surgeon in [place] when he is able to. He does understand this concern and agrees to this. Return parameters were discussed with him and he verbalized understanding. Case discussed with Dr. Sanderson. Disposition Clinical Impression: Visit for suture removal Disposition: HOME SELF-CARE Condition: Stable Instructions (If sedation given, give patient instructions): Stitches Removal (ED) Additional Instructions: Please return to the Emergency Department if symptoms worsen or any other concerns. Please keep area clean and dry. Please follow up with your surgeon at [facility]. Is patient prescribed a controlled substance at d/c from ED?: No Referrals: None,Stated [Primary Care Provider] - 1-2 days Time of Disposition: 07:06
== END 2021-01-22 07:10 | disposition home or self-care (01) ==
LOC: EC 06:10
DX: Z48.02 Encounter for removal of sutures (principal); F17.200 Nicotine dependence, unspecified, uncomplicated; Z79.82 Long term (current) use of aspirin; Z86.73 Personal history of transient ischemic attack (TIA), and cerebral infarction without residual deficits
CPT/HCPCS: 99281

== ENCOUNTER 2021-02-04 12:00 | Inpatient (IN) | payer MEDICAID, OTHER ==
--- NOTE | 2021-02-04 12:33 | ED ---
Psych HPI - General Source: patient, RN notes reviewed Mode of arrival: ambulatory Limitations: no limitations <Simone Knutson - Last Filed: 02/05/21 06:17> <Angelic Pablo - Last Filed: 02/10/21 23:38> - General Chief Complaint: Psychiatric Symptoms Stated Complaint: Product Safety Specialist Order-Mental Health Time Seen by Provider: 02/04/21 12:13 - History of Present Illness Initial Comments: This a 60-year-old male presents emergency from with police for psychiatric evaluation. Patient was brought in on a pickup order this patient probably has not been follow up with [facility]. Patient has long history of depression, alcohol a buse had recent suicide attempt. Patient has no complaints he is not very forthcoming on information. Denies any drug abuse. (Simone Knutson) - Related Data Previous Rx's Medication Instructions Recorded Aspirin EC [Ecotrin Low Dose] 81 mg PO DAILY 30 Days tab 02/09/21 Folic Acid 1 mg PO DAILY 30 Days tab 02/09/21 Gabapentin [Neurontin] 300 mg PO TID 14 Days #42 cap 02/09/21 Multivitamins, Thera [Multivitamin 1 each PO DAILY 30 Days tab 02/09/21 (formulary)] Nicotine 14Mg/24Hr Patch [Habitrol] 1 patch TRANSDERM DAILY 14 Days 02/09/21 patch Pantoprazole Sodium [Protonix] 40 mg PO DAILY 30 Days tab 02/09/21 Sertraline [Zoloft] 100 mg PO DAILY 30 Days tab 02/09/21 Thiamine [Vitamin B-1] 100 mg PO DAILY 30 Days tab 02/09/21 traZODone HCL [Desyrel] 100 mg PO HS 30 Days tab 02/09/21 Allergies Allergy/AdvReac Type Severity Reaction Status Date / Time No Known Allergies Allergy Verified 02/04/21 16:48 Review of Systems ROS Other: All systems not noted in ROS Statement are negative. <Simone Knutson - Last Filed: 02/05/21 06:17> ROS Other: All systems not noted in ROS Statement are negative. <Angelic Pablo - Last Filed: 02/10/21 23:38> ROS Statement: Those systems with pertinent positive or pertinent negative responses have been documented in the HPI. Past Medical History Past Medical History: CVA/TIA, Liver Disease, Skin Disorder History of Any Multi-Drug Resistant Organisms: None Reported Past Surgical History: Hernia Repair, Orthopedic Surgery Additional Past Surgical History / Comment(s): rt arm, lt wrist. left forearm incisional ports Past Anesthesia/Blood Transfusion Reactions: No Reported Reaction Past Psychological History: Anxiety, Depression Smoking Status: Current every day smoker Past Alcohol Use History: Abuse, Daily Past Drug Use History: None Reported - Past Family History family Family Medical History: No Reported History <Simone Knutson - Last Filed: 02/05/21 06:17> General Exam Limitations: no limitations General appearance: alert, in no apparent distress Head exam: Present: atraumatic, normocephalic, normal inspection Neck exam: Present: normal inspection. Absent: tenderness, meningismus, lymphadenopathy Respiratory exam: Present: normal lung sounds bilaterally. Absent: respiratory distress, wheezes, rales, rhonchi, stridor Cardiovascular Exam: Present: regular rate, normal rhythm, normal heart sounds. Absent: systolic murmur, diastolic murmur, rubs, gallop, clicks GI/Abdominal exam: Present: soft, normal bowel sounds. Absent: distended, tenderness, guarding, rebound, rigid Extremities exam: Present: other (healed large surgical wound on the left arm) Neurological exam: Present: alert, oriented X3 Psychiatric exam: Present: flat affect Skin exam: Present: warm, dry, intact, normal color. Absent: rash <Simone Knutson - Last Filed: 02/05/21 06:17> Course Vital Signs 02/04/21 12:08 Temperature 97.8 F Pulse Rate 109 H Respiratory 18 Rate Blood Pressure 110/77 O2 Sat by Pulse 96 Oximetry Medical Decision Making - Lab Data Result diagrams: 02/07/21 06:26 02/07/21 06:26 <Angelic Pablo - Last Filed: 02/10/21 23:38> - Lab Data Lab Results 02/04/21 Range/Units 13:37 Urine Opiates Screen Not Detected (NotDetected) Ur Oxycodone Screen Not Detected (NotDetected) Urine Methadone Screen Not Detected (NotDetected) Ur Propoxyphene Screen Not Detected (NotDetected) Ur Barbiturates Screen Not Detected (NotDetected) U Tricyclic Antidepress Not Detected (NotDetected) Ur Phencyclidine Scrn Not Detected (NotDetected) Ur Amphetamines Screen Not Detected (NotDetected) U Methamphetamines Scrn Not Detected (NotDetected) U Benzodiazepines Scrn Not Detected (NotDetected) Urine Cocaine Screen Not Detected (NotDetected) U Marijuana (THC) Screen Not Detected (NotDetected) Disposition <Simone Knutson M - Last Filed: 02/05/21 06:17> <Angelic Pablo A - Last Filed: 02/10/21 23:38> Clinical Impression: Alcohol intoxication, Depression, Depressive disorder Disposition: TRANSFER TO PSYCH HOSP/UNIT Condition: Stable
[2021-02-04 14:26] LABS: Amphetamine Screen,Urine Not Detected (NotDetected); Barbiturate Screen,Urine Not Detected (NotDetected); Benzodiazepines Screen,Urine Not Detected (NotDetected); Cocaine Screen,Urine Not Detected (NotDetected); Methadone Screen, Urine Not Detected (NotDetected); Opiate Screen,Urine Not Detected (NotDetected); Oxycodone Screen, Urine Not Detected (NotDetected); Phencyclidine Screen,Urine Not Detected (NotDetected); Tricyclic Antidepressant,Urine Not Detected (NotDetected); Urn Cannabinoid Scrn Not Detected (NotDetected)
[2021-02-04] MEDS ORDERED: LORazepam 1 MG TAB PO PRN (22:45)
[2021-02-04] MEDS ORDERED: MAGNESIUM HYDROXIDE 2,400 MG/10 ML CUP PO PRN (22:45)
[2021-02-04] MEDS ORDERED: MAG HYDROX/AL HYDROX/SIMETH 30 ML CUP PO PRN (22:45)
[2021-02-04] MEDS ORDERED: ACETAMINOPHEN TAB 325 MG TAB PO PRN (22:45)
[2021-02-04] MEDS ORDERED: LORazepam 2 MG/ML INJ IM PRN (22:51)
[2021-02-04] MEDS ORDERED: HALOPERIDOL LACTATE 5 MG/ML 1 ML VIAL IM PRN (22:55)
[2021-02-04] MEDS ORDERED: haloperidoL 5 MG TAB PO PRN (22:55)
[2021-02-05] MEDS: GABAPENTIN 300 MG CAP PO SCH ×4 (00:31→21:08)
[2021-02-05] MEDS: traZODone HCL 100 MG TAB PO SCH ×2 (00:31→21:08)
[2021-02-05] MEDS: NICOTINE 14MG/24HR PATCH TRANSDERM SCH ×2 (00:31→08:44)
[2021-02-05] MEDS: ASPIRIN 81 MG PO SCH (08:45)
[2021-02-05] MEDS: PANTOPRAZOLE 40 MG TABLET PO SCH (08:45)
[2021-02-05] MEDS: SERTRALINE 100 MG TAB PO SCH (08:45)
--- NOTE | 2021-02-05 11:15 | P.HP ---
Psychiatric H&P - . H&P Date: 02/05/21 History & Physical: Allergies Allergy/AdvReac Type Severity Reaction Status Date / Time No Known Allergies Allergy Verified 02/04/21 16:48 Vital Signs Temp 96.1 F L 02/05/21 06:43 Pulse 113 H 02/05/21 06:43 Resp 18 02/05/21 06:43 BP 107/69 02/05/21 06:43 Pulse Ox 97 02/04/21 23:14 Intake & Output 02/04/21 02/05/21 02/05/21 18:59 06:59 18:59 Weight 79.379 kg 76.2 kg Laboratory Last Values Urine Opiates Screen Not Detected (NotDetected) 02/04/21 13:37 Ur Oxycodone Screen Not Detected (NotDetected) 02/04/21 13:37 Urine Methadone Screen Not Detected (NotDetected) 02/04/21 13:37 Ur Propoxyphene Screen Not Detected (NotDetected) 02/04/21 13:37 Ur Barbiturates Screen Not Detected (NotDetected) 02/04/21 13:37 U Tricyclic Antidepress Not Detected (NotDetected) 02/04/21 13:37 Ur Phencyclidine Scrn Not Detected (NotDetected) 02/04/21 13:37 Ur Amphetamines Screen Not Detected (NotDetected) 02/04/21 13:37 U Methamphetamines Scrn Not Detected (NotDetected) 02/04/21 13:37 U Benzodiazepines Scrn Not Detected (NotDetected) 02/04/21 13:37 Urine Cocaine Screen Not Detected (NotDetected) 02/04/21 13:37 U Marijuana (THC) Screen Not Detected (NotDetected) 02/04/21 13:37 02/05/21 11:07 IDENTIFYING DATA: Patient is a 60-year-old male who is currently homeless HPI: Patient presented to the hospital yesterday on a pickup order as he was brought from [facility]. Patient apparently claimed that he was suicidal and was not taking his medications. According to ER report patient was uncooperative. Patient was seen today wandering the hallways and agreeable to speak to appeals writer in the office. He claims that after being discharged on 01/21 from the hospital she states that he stayed with his sister in [place] and then returned back to [place] to do follow-up at [facility]. He states that he went to [facility] several times within the past several days and states that he talk to for his evaluation and claims that "I was in and out" and states that I was "bullshitting with him". He was fairly vague about what he said to the doctor and claims that "I should've lied to him". And states that he was getting "pissed off with him" during the evaluation. He states that after he was discharged last he did not take any medications as he states that "the doctor didn't discharge me with anything". He states that he only took medications from "[facility] He was very superficial evasive and confrontational today. He denied any changes in his mood and denied being suicidal. He denied any changes in his sleep. He states that he has been drinking beer regularly since he was discharged. He has very poor insight and judgment. Patient denies any current suicidal or homicidal ideations intent or plan. At this time patient denies any auditory or visual hallucinations. Patient denies any flight of ideas racing thoughts and increased in goal directed behavior. Patient admits to using no recreational drugs however does consume alcohol regularly. PAST PSYCHIATRIC HISTORY: Patient has a psychiatric history significant for depression and alcohol use. Patient was previously on trazodone when necessary and zoloft. Patient was previously psychiatrically hospitalized in late december 2020 on the mental health unit. Has had several psychiatric hospitalizations. He was following up at [facility] with Dr. Welch. Patient has had a suicide attempt in the past month where he cut his arm. Family history: He stated that he is currently homeless. He has 3 sisters who are still alive. He has 2 brothers who are still alive. His father is . He is not and has 2 children. He stated that his has nothing to do with him. She changes her phone numbers frequently. He denies any family history of mental illness but then stated that one of his uncles committed suicide successfully. He denies any history of substance abuse in the family. Medical history: He stated he has been told that he has cirrhosis of liver. He has chronic pain in his pelvis region. 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 Substance abuse history: He stated he used to drink alcohol a lot. He stated yesterday he had 2 drinks in the morning. He denies use of any drugs or marijuana. He denies having any legal problems. ALLERGIES and ADR: He denies any history of being ALLERGIC to anything or having adverse drug reactions with any medication. MENTAL STATUS EXAM: General Appearance: Patient appears to be older than stated age is alert, evasive and guarded. Superficial. Patient appears to have poor hygiene and g rooming. Behavior: Patient is seated without any agitated behavior. Evasive and guarded. Superficial Speech: Patient's speech is fluent and nonpressured. Irritable at times and confrontational Mood/Affect: Patient reports their mood is "fine", affect is incongruent and constricted. Suicidality/Homicidality: Patient denies having any homicidal ideation intent or plan. Denies any suicidal ideations intent or plan Perceptions: Patient denies any visual hallucinations and denies any auditory hallucinations Though content/process: Patient rambles, tangential. Minimizing his stressors and need for treatment. Memory and concentration: AOX3, grossly intact for the purposes of this session. Can spell "WORLD" backwards Judgment and insight: Chronically poor STRENGTHS/WEAKNESSES: strength is that patient is resilient. Weakness is that patient has poor judgment and has poor insight. INTELLECT: average IMPRESSIONS: Major depressive disorder, recurrent, severe without psychotic features Alcohol dependence Nicotine dependence PLAN: -Patient is admitted under voluntary status to MHU for stabilization of psychiatric symptoms and safety. Patient has signed medication consent and is placed in patient's chart. -Medications : Will start patient on zoloft 100 mg daily for mood/anxiety/pain. Trazodone 100 mg daily at bedtime for insomnia/mood. -Ativan and Haldol PRN for agitation/aggression -Started thiamine, MVM for etoh use -CIWA protocol with Ativan PRN for ETOH withdrawal -Patient was counselled on substance abuse, he did claim that he is willing to go to [place] upon discharge. -Patient was informed of the risks, benefits and side effects of the medication and patient verbally consented to taking the medications. Patient signed med consent form and was placed in chart. -Internal Medicine consult to perform medical evaluation and physical. -NRT - nicotine patch -SW on board for discharge planning. Encourage patient to participate in groups to work on coping skills
[2021-02-06] MEDS: NICOTINE 14MG/24HR PATCH TRANSDERM SCH (09:00)
[2021-02-06] MEDS: FOLIC ACID 1 MG TAB PO SCH (09:00)
[2021-02-06] MEDS: ASPIRIN 81 MG PO SCH (09:00)
[2021-02-06] MEDS: PANTOPRAZOLE 40 MG TABLET PO SCH (09:00)
[2021-02-06] MEDS: THIAMINE 100 MG TAB PO SCH (09:00)
[2021-02-06] MEDS: MULTIVITAMINS, THERA 1 EACH TAB PO SCH (09:00)
[2021-02-06] MEDS: SERTRALINE 100 MG TAB PO SCH (09:00)
[2021-02-06] MEDS: GABAPENTIN 300 MG CAP PO SCH ×3 (09:00→21:20)
[2021-02-06 11:50] LABS: Appearance,Urine Clear (Clear); Bilirubin,Urine Negative (Negative); Blood,Urine Negative (Negative); Color,Urine Yellow; Glucose,Urine (UA) Negative (Negative); Ketones,Urine Negative (Negative); Leukocyte Esterase,Urine Small (Negative); Mucus,Urine Rare /hpf; Nitrite,Urine Negative (Negative); PH, Urine 5.5 (5.0-8.0); Protein,Urine Negative (Negative); RBC,Urine 1 /hpf (0-5); Specific Gravity,Urine 1.022 (1.001-1.035); Urobilinogen,Urine <2.0 mg/dL (<2.0); WBC,Urine 6 /hpf (0-5)
--- NOTE | 2021-02-06 17:31 | P.PN ---
Progress Note - Text Progress Note Date: 02/06/21 Interval History: Patient was seen wandering the hallways and was directable and agreeable to sp lauri with engineering writer in the office. This is a 60-year-old male. He is the father of 4 children. He receives Social Security disability income. He was admitted due to having thoughts of suicide. Currently he is being treated for depression and alcohol use disorder. Patient denies having alcohol withdrawals. He states he slept well last night. He states that he is keeping himself well hydrated and eating well. At this time patient denies any suicidal or homical ideations, intent or plan. Patient denies any auditory, visual hallucinations and denies any paranoia or delusions. Patient denies any side effects from the medications and has been compliant with meds. Mental Status Exam: General Appearance: Patient appears to be stated age is alert, directable, and cooperative. Behavior: Patient is calmly seated without any agitated behavior. Speech: Patient's speech is fluent and nonpressured. Mood/Affect: Mood is improving mildly, affect is congruent and constricted. Suicidality/Homicidality: Patient denies having any suicidal or homicidal ideation intent or plan. Perceptions: Patient denies any visual hallucinations and denies any auditory hallucinations Though content/process: There is no evidence of any delusional thought content and thought process is linear and goal-directed. Memory and concentration: AOX3, grossly intact for the purposes of this session Judgment and insight: poor Assessment Major depressive disorder recurrent, sever without psychotic features Alcohol use disorder Comorbid medical; per patient report he has had history of liver cirrhosis Plan: Vitals shows his blood pressure 125/72, pulse 96. Obtain CBC and CMP tomorrow -Patient continues to meet criteria for inpatient psychiatric admission for symptom stabilization and safety. -Medications: Continue Zoloft and trazodone without any changes and monitor - Continue alcohol detox with [facility] protocol with Ativan , efforts are made during the session improving his insight into how alcohol affecting his health and mental well-being. Encouraged AA meetings and substance use treatment -When necessary Ativan and Haldol for agitation/aggression. -NRT - nicotine patch -SW on board for discharge planning. Encouraged the patient to participate in milieu. Currently awaiting deferral with environmental attorney and court date.
[2021-02-06] MEDS: traZODone HCL 100 MG TAB PO SCH (21:20)
--- NOTE | 2021-02-07 01:15 | P.CONS ---
History of Present Illness - Reason for Consult Consult date: 02/06/21 - History of Present Illness The patient is a 52-year-old male with a PMH of cirrhosis, depression, anxiety, history of CVA without residual deficits, tobacco abuse, currently homeless who was brought into the emergency room after a pickup order since the patient had not been following up at [facility]. The patient denied active complaints at the time of interview. He notes that he is not sure why he was brought into the hospital but that he is feeling somewhat better since presentation. During the prior hospitalization earlier this month, the patient self-inflicted a large wound to his left arm which required sutures. Patient notes chronic left hand numbness as a result of the injury. He denied chest discomfort, shortness of breath, fever, chills. Also denied nausea, vomiting, abdominal pain, diarrhea. Review of systems: Pertinent positives and negatives as discussed in HPI, a complete review of systems was performed and all other systems are negative. Physical examination: General: non toxic, no distress, appears at stated age, normal weight Derm: Large healing laceration on the left arm and forearm, warm, dry Head: atraumatic, normocephalic, symmetric Eyes: EOMI, no lid lag, anicteric sclera, pupils equal round reactive to light ENT: Nose and ears atraumatic, no thrush, no pharyngeal erythema Neck: No thyromegaly, no cervical lymphadenopathy, trachea midline, supple Mouth: no lip lesion, mucus membranes moist Cardiovascular: S1S2 reg, no murmur, positive posterior tibial pulse bilateral, no edema, capillary refill less than 2 seconds Lungs: CTA bilateral, no rhonchi, no rales , no accessory muscle use Abdominal: soft, nontender to palpation, no guarding, no appreciable organomegaly, normal bowel sounds Ext: no gross muscle atrophy, muscle strength 5 out of 5 in all 4 extremities grossly, no contractures, Neuro: CN II-XI grossly intact, light touch intact all 4 extremities, finger to nose within normal limits, Psych: Alert, oriented, appropriate affect Assessment/plan Cirrhosis, compensated -Advised patient on importance of on-going abstinence from alcohol Reported history of CVA -Discussed with MHU RN regarding obtaining records from prior admission regarding hx of CVA w/ carotid stenosis from [place] -Will attempt to obtain them from medical records -Patient may benefit from a Statin. Already on ASA History of anxiety and depression -As per psychiatry Tobacco abuse -Advised on the importance of cessation -Nicotine patch as needed Past Medical History Past Medical History: CVA/TIA, Liver Disease, Skin Disorder History of Any Multi-Drug Resistant Organisms: None Reported Past Surgical History: Hernia Repair, Orthopedic Surgery Additional Past Surgical History / Comment(s): rt arm, lt wrist. left forearm incisional ports Past Anesthesia/Blood Transfusion Reactions: No Reported Reaction Past Psychological History: Anxiety, Depression Smoking Status: Current every day smoker Past Alcohol Use History: Abuse, Daily Past Drug Use History: None Reported - Past Family History family Family Medical History: Hyperlipidemia Medications and Allergies Home Medications Medication Instructions Recorded Confirmed Type Aspirin EC [Ecotrin Low Dose] 81 mg PO DAILY 01/11/21 02/04/21 History Gabapentin [Neurontin] 600 mg PO TID 01/11/21 02/04/21 History Pantoprazole Sodium [Protonix] 40 mg PO DAILY 01/11/21 02/04/21 History Sertraline [Zoloft] 100 mg PO DAILY 01/11/21 02/04/21 History traZODone HCL [Desyrel] 100 mg PO HS 01/11/21 02/04/21 History Nicotine 14Mg/24Hr Patch [Habitrol 1 patch TRANSDERM DAILY 01/14/21 02/04/21 History 14Mg/24Hr Patch] Allergies Allergy/AdvReac Type Severity Reaction Status Date / Time No Known Allergies Allergy Verified 02/04/21 16:48 Physical Exam Vitals: Vital Signs Temp Pulse Resp BP 02/06/21 06:44 97.9 F 96 16 125/72 Results Labs: Abnormal Lab Results - Last 24 Hours (Table) 02/06/21 Range/Units Unknown Ur Leukocyte Esterase Small H (Negative) Urine WBC 6 H (0-5) /hpf Urine Mucus Rare H (None) /hpf
[2021-02-07 06:38] VITALS: RESP 18
[2021-02-07 07:12] LABS: Basophils % (A) 0 %; Eosinophils # (A) 0.2 k/uL (0-0.7); Eosinophils % (A) 2 %; HCT 41.1 % (39.0-53.0); HGB 13.4 gm/dL (13.0-17.5); Lymphocytes # (A) 3.3 k/uL (1.0-4.8); Lymphocytes % (A) 37 %; MCH 31.5 pg (25.0-35.0); MCHC 32.6 g/dL (31.0-37.0); MCV 96.5 fL (80.0-100.0); Mean Platelet Volume 7.9; Monocytes # (A) 0.4 k/uL (0-1.0); Monocytes % (A) 4 %; Neutrophils # (A) 4.8 k/uL (1.3-7.7); Neutrophils % (A) 55 %; Platelet Count 197 k/uL (150-450); RBC 4.25 m/uL (4.30-5.90); RDW 13.6 % (11.5-15.5); WBC 8.8 k/uL (3.8-10.6)
[2021-02-07 07:30] LABS: ALT 17 U/L (4-49); AST 26 U/L (17-59); African American GFR (CKD) >90 (>60 ml/min/1.73 sqM); Albumin 4.1 g/dL (3.5-5.0); Alkaline Phosphatase 69 U/L (38-126); Anion Gap 4 mmol/L; Blood Urea Nitrogen 14 mg/dL (9-20); Calcium 9.5 mg/dL (8.4-10.2); Carbon Dioxide 31 mmol/L (22-30); Chloride 106 mmol/L (98-107); Glucose 100 mg/dL (74-99); Non-African American GFR(CKD) >90 (>60 ml/min/1.73 sqM); Potassium 4.4 mmol/L (3.5-5.1); Sodium 141 mmol/L (137-145); Total Bilirubin 0.2 mg/dL (0.2-1.3); Total Protein 7.1 g/dL (6.3-8.2)
[2021-02-07] MEDS: NICOTINE 14MG/24HR PATCH TRANSDERM SCH (08:36)
[2021-02-07] MEDS: SERTRALINE 100 MG TAB PO SCH (08:36)
[2021-02-07] MEDS: ASPIRIN 81 MG PO SCH (08:37)
[2021-02-07] MEDS: FOLIC ACID 1 MG TAB PO SCH (08:37)
[2021-02-07] MEDS: THIAMINE 100 MG TAB PO SCH (08:37)
[2021-02-07] MEDS: MULTIVITAMINS, THERA 1 EACH TAB PO SCH (08:37)
[2021-02-07] MEDS: GABAPENTIN 300 MG CAP PO SCH ×3 (08:37→20:07)
[2021-02-07] MEDS: PANTOPRAZOLE 40 MG TABLET PO SCH (08:37)
--- NOTE | 2021-02-07 13:05 | P.PN ---
Progress Note - Text Progress Note Date: 02/07/21 Interval History: Patient was seen wandering the hallways and was directable and agreeable to s peak with signwriter in the office. This is a 60-year-old male. He is the father of 4 children. He receives Social Security disability income. He was admitted due to having thoughts of suicide. Currently he is being treated for depression and alcohol use disorder. Patient denies having alcohol withdrawals. patient states that he realizes if he goes back to drinking alcohol it might kill him. Patient states that he is feeling brtter today. He states he slept about 8 hours last night and woke up this morning feeling refreshed. At this time patient denies any suicidal or homical ideations, intent or plan. Patient denies any auditory, visual hallucinations and denies any paranoia or delusions. Patient denies any side effects from the medications and has been compliant with meds. Mental Status Exam: General Appearance: Patient appears to be stated age is alert, directable, and cooperative. Behavior: Patient is calmly seated without any agitated behavior. Speech: Patient's speech is fluent and nonpressured. Mood/Affect: Mood is improving mildly, affect is congruent and constricted. Suicidality/Homicidality: Patient denies having any suicidal or homicidal angela ation intent or plan. Perceptions: Patient denies any visual hallucinations and denies any auditory hallucinations Though content/process: There is no evidence of any delusional thought content and thought process is linear and goal-directed. Memory and concentration: AOX3, grossly intact for the purposes of this session Judgment and insight: improving Assessment Major depressive disorder recurrent, sever without psychotic features Alcohol use disorder Comorbid medical; per patient report he has had history of liver cirrhosis Plan: Vitals shows his blood pressure 126/62, pulse 87. CMP on 02/07/2021 shows his at AST and AST are within normal limits -Patient continues to meet criteria for inpatient psychiatric admission for symptom stabilization and safety. -Medications: Continue Zoloft 100 mg daily, and trazodone 100 mg/ insomina without any changes and monitor - Continue alcohol detox with [facility] protocol with Ativan , efforts are made during the session improving his insight into how alcohol affecting his health and mental well-being. Encouraged AA meetings and substance use treatment -When necessary Ativan and Haldol for agitation/aggression. -NRT - nicotine patch -SW on board for discharge planning. Encouraged the patient to participate in milieu. Currently awaiting deferral with transactional attorney and court date.
[2021-02-07] MEDS: traZODone HCL 100 MG TAB PO SCH (20:07)
[2021-02-08 06:52] VITALS: BP 128/78; PULSE 82; TEMP 98
[2021-02-08] MEDS: ASPIRIN 81 MG PO SCH (08:54)
[2021-02-08] MEDS: SERTRALINE 100 MG TAB PO SCH (08:54)
[2021-02-08] MEDS: NICOTINE 14MG/24HR PATCH TRANSDERM SCH (08:54)
[2021-02-08] MEDS: THIAMINE 100 MG TAB PO SCH (08:54)
[2021-02-08] MEDS: PANTOPRAZOLE 40 MG TABLET PO SCH (08:55)
[2021-02-08] MEDS: GABAPENTIN 300 MG CAP PO SCH ×3 (08:55→19:54)
[2021-02-08] MEDS: FOLIC ACID 1 MG TAB PO SCH (08:55)
[2021-02-08] MEDS: MULTIVITAMINS, THERA 1 EACH TAB PO SCH (08:55)
--- NOTE | 2021-02-08 13:56 | P.PN ---
Progress Note - Text Progress Note Date: 02/08/21 Interval History: Patient was seen [wandering the hallways] and was directable and agreeable to speak with proposal lead writer in the office. Patient appears to be calmer today and has improvement in his affect. He continues to have poor insight into his condition however states that he is willing to take his medications when he is discharged. He continues to minimize his alcohol use and is refusing rehab at this time. He states that he would like to go either stay with his mother or his sister upon discharge and will be looking for an apartment to live in. He is continuing to want to go to rehab for his arm and also go to [facility] for follow-up. He states that he is able to sleep fairly last night. He denied any complaints over the weekend. He states that his mood is "fine" and is denying any depression or anxiety today. At this time patient denies any suicidal or homical ideations, intent or plan. Patient denies any auditory, visual hallucinations and denies any paranoia or delusions. Patient denies any side effects from the medications and has been compliant with meds. Mental Status Exam: General Appearance: Patient appears to be older than stated age is alert, Superficial. Patient appears to have improving hygiene and grooming. Behavior: Patient is seated without any agitated behavior. Superficial Speech: Patient's speech is fluent and nonpressured. Irritable at times and confrontational Mood/Affect: Patient reports their mood is "good", affect is incongruent and constricted. Suicidality/Homicidality: Patient denies having any homicidal ideation intent or plan. Denies any suicidal ideations intent or plan Perceptions: Patient denies any visual hallucinations and denies any auditory hallucinations Though content/process: Patient rambles. Minimizing his stressors and need for substance use treatment. Memory and concentration: AOX3, grossly intact for the purposes of this session. Judgment and insight: Chronically poor, improving mildly Assessment Major depressive disorder, recurrent, severe without psychotic features Alcohol dependence Nicotine dependence Plan: -Patient is admitted under involuntary status to MHU for stabilization of psychiatric symptoms and safety. Patient has not signed medication consent and is placed in patient's chart. -Medications : zoloft 100 mg daily for mood/anxiety/pain. Trazodone 100 mg daily at bedtime for insomnia/mood. -Ativan and Haldol PRN for agitation/aggression -thiamine, MVM for etoh use -CIWA protocol discontinued -NRT - nicotine patch - on board for discharge planning. Encourage patient to participate in groups to work on coping skills. Patient is refusing rehab at this time for etoh use. he will be discharged tomorrow to stay with his sister or family and follow up with [facility]. He is currnelty on an acitve treatment order until July 2021.
[2021-02-08] MEDS: traZODone HCL 100 MG TAB PO SCH (19:54)
[2021-02-09] MEDS: SERTRALINE 100 MG TAB PO SCH (08:20)
[2021-02-09] MEDS: PANTOPRAZOLE 40 MG TABLET PO SCH (08:20)
[2021-02-09] MEDS: MULTIVITAMINS, THERA 1 EACH TAB PO SCH (08:20)
[2021-02-09] MEDS: ASPIRIN 81 MG PO SCH (08:20)
[2021-02-09] MEDS: FOLIC ACID 1 MG TAB PO SCH (08:20)
[2021-02-09] MEDS: GABAPENTIN 300 MG CAP PO SCH (08:21)
[2021-02-09] MEDS: THIAMINE 100 MG TAB PO SCH (08:21)
[2021-02-09] MEDS: NICOTINE 14MG/24HR PATCH TRANSDERM SCH (08:22)
--- NOTE | 2021-02-09 09:44 | P.DS ---
Providers Date of admission: 02/04/21 22:34 Expected date of discharge: 02/09/21 Attending physician: Osbaldo Sarmiento MD Consults: 02/04/21 22:45 Consult Physician Routine Consulting Provider: Joy Shah Consult Reason/Comments: history and physical/medical management Do you want consulting provider notified?: Yes Primary care physician: Stated None - Discharge Diagnosis(es) (1) Major depressive disorder, recurrent severe without psychotic features Current Visit: Yes Status: Acute Priority: High (2) Alcohol dependence Current Visit: Yes Status: Acute Priority: Medium (3) Nicotine dependence Current Visit: Yes Status: Acute Priority: Low Hospital Course: Admission HPI: Admission note was completed by aligner typewriter "Patient is a 60-year-old male who is currently homeless currently on a court order for treatment. Patient presented to the hospital yesterday on a pickup order as he was brought from [facility]. Patient apparently claimed that he was suicidal and was not taking his medications. According to ER report patient was uncooperative. Patient was seen today wandering the hallways and agreeable to speak to aligner typewriter in the office. He claims that after being discharged on 01/21 from the hospital she states that he stayed with his sister in [place] and then returned back to [place] to do follow-up at [facility]. He states that he went to [facility] several times within the past several days and states that he talk to for his evaluation and claims that "I was in and out" and states that I was "bullshitting with him". He was fairly vague about what he said to the doctor and claims that "I should've lied to him". And states that he was getting "pissed off with him" during the evaluation. He states that after he was discharged last he did not take any medications as he states that "the doctor didn't discharge me with anything". He states that he only took medications from [facility] He was very superficial evasive and confrontational today. He denied any changes in his mood and denied being suicidal. He denied any changes in his sleep. He states that he has been drinking beer regularly since he was discharged. He has very poor insight and judgment. Patient denies any current suicidal or homicidal ideations intent or plan. At this time patient denies any auditory or visual hallucinations. Patient denies any flight of ideas racing thoughts and increased in goal directed behavior. Patient admits to using no recreational drugs however does consume alcohol regularly." Hospital course: Upon admission to the unit patient was initially superficial and evasive. Patient was however already on an active court order for mental health treatment until July 2021. Patient got along well with other patients on the unit and followed unit protocol. Patient was compliant with the medications and denied any side effects throughout hospital course. Patient was started on his home dose of Zoloft 100 mg daily for mood/anxiety, trazodone 100 mg daily at bedtime for insomnia/mood. Patient spoke of his stressors and engaged in therapy both group and individual. Patient was also seen by medical team for history and physical exam. Throughout the course of the hospitalization patient gradually improved with regards to mood, anxiety, sleep and returned back to his baseline level of functioning. On the day of discharge patient denied any suicidal or homicidal ideations intent or plan denied any auditory or visual hallucinations. Patient endorsed wanting to live for his health, travelling and family. The patient denied any access to guns or weapons. Patient denied any paranoia and did not endorse any delusions. Patient does have a significant history of substance abuse and was counseled on abstaining from all substances including alcohol and marijuana. Patient was offered however declined inpatient substance- abuse rehab. Patient elected to do outpatient substance use treatment program through [facility]. Patient was also counseled on the medications and need for regular compliance and was encouraged to follow-up with their outpatient appointment for mental health and also for primary care. Prior to discharge a family meeting will be arranged by social security specialist to answer any questions and ensure safety upon discharge. Mental status exam: General Appearance: Patient appears to be stated age is alert, pleasant, and cooperative. Patient is in no acute distress and has improved hygiene and grooming Behavior: Patient is calmly seated without any agitated behavior. Speech: Patient's speech is fluent and nonpressured. Mood/Affect: Patient reports their mood is "good", affect is congruent and euthymic. Suicidality/Homicidality: Patient denies having any suicidal or homicidal ideation intent or plan. Perceptions: Patient denies any auditory or visual hallucinations. Though content/process: There is no evidence of any delusional thought content and thought process is linear and goal-directed. more future oriented Memory and concentration: AOX3, grossly intact for the purposes of this session. Can spell "WORLD" backwards correctly. Judgment and insight: chronically poor, however has improved with guarded prognosis Impression: Major depressive disorder, recurrent, severe without psychotic features Alcohol dependence Nicotine dependence Plan: -Continue with discharge today as patient has improved and stabilized psychiatrically and is not currently an imminent threat to himself and/or others. Patient will remain at chronically elevated risk for harm to self and/or others due to his impulsivity and substance abuse. -Continue medications: Zoloft 100 mg daily for mood/anxiety, trazodone 100 mg daily at bedtime for insomnia/mood. -Patient was counseled on the need for medication compliance and appropriate follow-up at mental health and also primary care for medical issues. Patient verbalized understanding and agreed. -Social work to arrange for and conduct family meeting to ensure safety upon discharge and answer any questions/concerns. Social work also to arrange for patients follow up appointments with [facility] for psychiatric care along with follow up with primary care provider. -Patient counseled on abstaining from recreational drugs and marijuana and alcohol. Was informed/educated on the adverse effects on their physical and mental health. Patient verbally agreed and understood. Patient was offered substance abuse treatment however declined at this time. -Patient was instructed to return to the hospital or seek immediate medical care if their psychiatric or medical symptoms do worsen or reoccur. Allergies Allergy/AdvReac Type Severity Reaction Status Date / Time No Known Allergies Allergy Verified 02/04/21 16:48 Laboratory Results WBC 8.8 k/uL (3.8-10.6) 02/07/21 06: RBC 4.25 m/uL (4.30-5.90) L 02/07/21 06:26 Hgb 13.4 gm/dL (13.0-17.5) 02/07/21 06: Hct 41.1 % (39.0-53.0) 02/07/21 06: MCV 96.5 fL (80.0-100.0) 02/07/21 06:26 MCH 31.5 pg (25.0-35.0) 02/07/21 06: MCHC 32.6 g/dL (31.0-37.0) 02/07/21 06: RDW 13.6 % (11.5-15.5) 02/07/21 06:26 Plt Count 197 k/uL (150-450) 02/07/21 06:26 MPV 7.9 02/07/21 06:26 Neutrophils % 55 % 02/07/21 06:26 Lymphocytes % 37 % 02/07/21 06:26 Monocytes % 4 % 02/07/21 06:26 Eosinophils % 2 % 02/07/21 06:26 Basophils % 0 % 02/07/21 06:26 Neutrophils # 4.8 k/uL (1.3-7.7) 02/07/21 06:26 Lymphocytes # 3.3 k/uL (1.0-4.8) 02/07/21 06:26 Monocytes # 0.4 k/uL (0-1.0) 02/07/21 06:26 Eosinophils # 0.2 k/uL (0-0.7) 02/07/21 06:26 Basophils # 0.0 k/uL (0-0.2) 02/07/21 06:26 Sodium 141 mmol/L (137-145) 02/07/21 06:26 Potassium 4.4 mmol/L (3.5-5.1) 02/07/21 06:26 Chloride 106 mmol/L (98-107) 02/07/21 06:26 Carbon Dioxide 31 mmol/L (22-30) H 02/07/21 06:26 Anion Gap 4 mmol/L 02/07/21 06:26 BUN 14 mg/dL (9-20) 02/07/21 06:26 Creatinine 0.60 mg/dL (0.66-1.25) L 02/07/21 06:26 Est GFR (CKD-EPI)AfAm >90 (>60 ml/min/1.73 sqM) 02/07/21 06:26 Est GFR (CKD-EPI)NonAf >90 (>60 ml/min/1.73 sqM) 02/07/21 06:26 Glucose 100 mg/dL (74-99) H 02/07/21 06:26 Calcium 9.5 mg/dL (8.4-10.2) 02/07/21 06:26 Total Bilirubin 0.2 mg/dL (0.2-1.3) 02/07/21 06:26 AST 26 U/L (17-59) 02/07/21 06:26 ALT 17 U/L (4-49) 02/07/21 06:26 Alkaline Phosphatase 69 U/L (38-126) 02/07/21 06:26 Total Protein 7.1 g/dL (6.3-8.2) 02/07/21 06:26 Albumin 4.1 g/dL (3.5-5.0) 02/07/21 06:26 Urine Color Yellow 02/06/21 Unknown Urine Appearance Clear (Clear) 02/06/21 Unknown Urine pH 5.5 (5.0-8.0) 02/06/21 Unknown Ur Specific [place] 1.022 (1.001-1.035) 02/06/21 Unknown Urine Protein Negative (Negative) 02/06/21 Unknown Urine Glucose (UA) Negative (Negative) 02/06/21 Unknown Urine Ketones Negative (Negative) 02/06/21 Unknown Urine Blood Negative (Negative) 02/06/21 Unknown Urine Nitrite Negative (Negative) 02/06/21 Unknown Urine Bilirubin Negative (Negative) 02/06/21 Unknown Urine Urobilinogen <2.0 mg/dL (<2.0) 02/06/21 Unknown Ur Leukocyte Esterase Small (Negative) H 02/06/21 Unknown Urine RBC 1 /hpf (0-5) 02/06/21 Unknown Urine WBC 6 /hpf (0-5) H 02/06/21 Unknown Urine Mucus Rare /hpf (None) H 02/06/21 Unknown Urine Opiates Screen Not Detected (NotDetected) 02/04/21 13:37 Ur Oxycodone Screen Not Detected (NotDetected) 02/04/21 13:37 Urine Methadone Screen Not Detected (NotDetected) 02/04/21 13:37 Ur Propoxyphene Screen Not Detected (NotDetected) 02/04/21 13:37 Ur Barbiturates Screen Not Detected (NotDetected) 02/04/21 13:37 U Tricyclic Antidepress Not Detected (NotDetected) 02/04/21 13:37 Ur Phencyclidine Scrn Not Detected (NotDetected) 02/04/21 13:37 Ur Amphetamines Screen Not Detected (NotDetected) 02/04/21 13:37 U Methamphetamines Scrn Not Detected (NotDetected) 02/04/21 13:37 U Benzodiazepines Scrn Not Detected (NotDetected) 02/04/21 13:37 Urine Cocaine Screen Not Detected (NotDetected) 02/04/21 13:37 U Marijuana (THC) Screen Not Detected (NotDetected) 02/04/21 13:37 Vital Signs Temp 98.0 F 02/08/21 06:52 Pulse 82 02/08/21 06:52 Resp 18 02/08/21 06:52 BP 128/78 02/08/21 06:52 Pulse Ox 97 02/04/21 23:14 Patient Condition at Discharge: Stable Plan - Discharge Summary Discharge Rx Participant: No New Discharge Prescriptions: New Folic Acid 1 mg PO DAILY 30 Days tab Nicotine 14Mg/24Hr Patch [Habitrol] 1 patch TRANSDERM DAILY 14 Days patch Thiamine [Vitamin B-1] 100 mg PO DAILY 30 Days tab Multivitamins, Thera [Multivitamin (formulary)] 1 each PO DAILY 30 Days tab Gabapentin [Neurontin] 300 mg PO TID 14 Days #42 cap Continue traZODone HCL [Desyrel] 100 mg PO HS 30 Days tab Pantoprazole Sodium [Protonix] 40 mg PO DAILY 30 Days tab Sertraline [Zoloft] 100 mg PO DAILY 30 Days tab Aspirin EC [Ecotrin Low Dose] 81 mg PO DAILY 30 Days tab Discontinued Gabapentin [Neurontin] 600 mg PO TID Nicotine 14Mg/24Hr Patch [Habitrol 14Mg/24Hr Patch] 1 patch TRANSDERM DAILY Discharge Medication List Aspirin EC [Ecotrin Low Dose] 81 mg PO DAILY 30 Days tab 02/09/21 [Rx] Folic Acid 1 mg PO DAILY 30 Days tab 02/09/21 [Rx] Gabapentin [Neurontin] 300 mg PO TID 14 Days #42 cap 02/09/21 [Rx] Multivitamins, Thera [Multivitamin (formulary)] 1 each PO DAILY 30 Days tab 02/09/21 [Rx] Nicotine 14Mg/24Hr Patch [Habitrol] 1 patch TRANSDERM DAILY 14 Days patch 02/09/21 [Rx] Pantoprazole Sodium [Protonix] 40 mg PO DAILY 30 Days tab 02/09/21 [Rx] Sertraline [Zoloft] 100 mg PO DAILY 30 Days tab 02/09/21 [Rx] Thiamine [Vitamin B-1] 100 mg PO DAILY 30 Days tab 02/09/21 [Rx] traZODone HCL [Desyrel] 100 mg PO HS 30 Days tab 02/09/21 [Rx] Follow up Appointment(s)/Referral(s): None,Stated [Primary Care Provider] - 1-2 days Discharge Disposition: HOME SELF-CARE
== END 2021-02-09 13:38 | disposition home or self-care (01) | DRG 885 ==
LOC: EC 12:00 → 3MHU 22:34
PROVIDERS: ADMIT Psychiatry & Neurology Psychiatry; ATTEND Psychiatry & Neurology Psychiatry
DX: F33.2 Major depressive disorder, recurrent severe without psychotic features (principal); R45.851 Suicidal ideations; F10.229 Alcohol dependence with intoxication, unspecified; Z91.5 Personal history of self-harm; Z79.82 Long term (current) use of aspirin; Z59.0 Homelessness; K74.60 Unspecified cirrhosis of liver; F17.200 Nicotine dependence, unspecified, uncomplicated; Z86.73 Personal history of transient ischemic attack (TIA), and cerebral infarction without residual deficits; F41.9 Anxiety disorder, unspecified; G47.00 Insomnia, unspecified; Z79.899 Other long term (current) drug therapy
CPT/HCPCS: 80053; 80306; 81001; 82075; 85025; 99285

== ENCOUNTER 2021-03-20 17:54 | Inpatient (IN) | payer MEDICAID, OTHER ==
--- NOTE | 2021-03-20 18:20 | ED ---
General Adult HPI - General Source: patient, police Mode of arrival: ambulatory Limitations: no limitations <Ciro Bruce - Last Filed: 03/20/21 23:00> <Dilip Garcia - Last Filed: 03/21/21 08:46> - General Chief complaint: Psychiatric Symptoms Stated complaint: Mental Health Time Seen by Provider: 03/20/21 18:12 - History of Present Illness Initial comments: Patient brought to the ED by police for evaluation. Patient was reportedly found intoxicated in a nearby park. Patient states that he has had suicidal ideations, and he admits to drinking alcohol today. Patient states that he has been drinking beer and vodka today. Patient denies suicidal or self-harm attempt today, although he has attempted suicide in the past, and he is noted to have multiple old scars to his bilateral forearms from his suicidal attempts in the past. Patient denies illicit drug use, medication abuse or overdose, trauma or injury, hallucinations, any pain, fever or chills, headache, chest pain, dyspnea, palpitations, dizziness, abdominal pain, nausea/vomiting/diarrhea or any other symptoms or complaints. (Ciro Bruce) - Related Data Previous Rx's Medication Instructions Recorded Aspirin EC [Ecotrin Low Dose] 81 mg PO DAILY 30 Days tab 02/09/21 Folic Acid 1 mg PO DAILY 30 Days tab 02/09/21 Gabapentin [Neurontin] 300 mg PO TID 14 Days #42 cap 02/09/21 Multivitamins, Thera [Multivitamin 1 each PO DAILY 30 Days tab 02/09/21 (formulary)] Nicotine 14Mg/24Hr Patch [Habitrol] 1 patch TRANSDERM DAILY 14 Days 02/09/21 patch Pantoprazole Sodium [Protonix] 40 mg PO DAILY 30 Days tab 02/09/21 Sertraline [Zoloft] 100 mg PO DAILY 30 Days tab 02/09/21 Thiamine [Vitamin B-1] 100 mg PO DAILY 30 Days tab 02/09/21 traZODone HCL [Desyrel] 100 mg PO HS 30 Days tab 02/09/21 Allergies Allergy/AdvReac Type Severity Reaction Status Date / Time No Known Allergies Allergy Verified 03/20/21 18:03 Review of Systems ROS Other: All systems not noted in ROS Statement are negative. <Ciro Bruce - Last Filed: 03/20/21 23:00> ROS Other: All systems not noted in ROS Statement are negative. <GarciaDilip - Last Filed: 03/21/21 08:46> ROS Statement: Those systems with pertinent positive or pertinent negative responses have been documented in the HPI. Past Medical History Past Medical History: CVA/TIA, Liver Disease, Skin Disorder History of Any Multi-Drug Resistant Organisms: None Reported Past Surgical History: Hernia Repair, Orthopedic Surgery Additional Past Surgical History / Comment(s): rt arm, lt wrist. left forearm incisional ports Past Anesthesia/Blood Transfusion Reactions: No Reported Reaction Past Psychological History: Anxiety, Depression Smoking Status: Current every day smoker Past Alcohol Use History: Abuse, Daily Past Drug Use History: None Reported - Past Family History family Family Medical History: Hyperlipidemia <Ciro Bruce - Last Filed: 03/20/21 23:00> General Exam Limitations: no limitations General appearance: alert, other (Patient appears intoxicated and smells of alcohol) Head exam: Present: atraumatic, normocephalic Eye exam: Present: PERRL, EOMI ENT exam: Present: mucous membranes moist Neck exam: Present: other (Trachea is in midline). Absent: tenderness Respiratory exam: Present: normal lung sounds bilaterally. Absent: respiratory distress, wheezes, rales, rhonchi, stridor Cardiovascular Exam: Present: normal rhythm, tachycardia, normal heart sounds, other (Normal radial pulses bilaterally) GI/Abdominal exam: Present: soft. Absent: distended, tenderness, guarding Extremities exam: Present: full ROM, other (Old scars are noted to bilateral forearms; no new extremity wounds are noted on examination). Absent: tenderness Back exam: Present: normal inspection Neurological exam: Present: alert, other (Slurred speech). Absent: motor sensory deficit Psychiatric exam: Present: suicidal ideation Skin exam: Present: warm, dry, intact, normal color <Ciro Bruce - Last Filed: 03/20/21 23:00> Course <Ciro Bruce - Last Filed: 03/20/21 23:00> Vital Signs 03/20/21 03/20/21 03/21/21 18:03 19:07 06:51 Temperature 98.1 F Pulse Rate 112 H 100 Respiratory 18 20 16 Rate Blood Pressure 139/89 145/86 O2 Sat by Pulse 97 98 Oximetry - Reevaluation(s) Reevaluation #1: 03/20/21 23:00 Patient was endorsed to Dr. Sanderson (secondary to end of my shift) with EPS nurse evaluation still pending. Dr. Sanderson to follow up on the EPS nurse's recommendations and to take over care of the patient at this time. (Ciro Bruce) Medical Decision Making - Lab Data Lab Results 03/20/21 Range/Units 18:49 Urine Opiates Screen Not Detected (NotDetected) Ur Oxycodone Screen Not Detected (NotDetected) Urine Methadone Screen Not Detected (NotDetected) Ur Propoxyphene Screen Not Detected (NotDetected) Ur Barbiturates Screen Not Detected (NotDetected) U Tricyclic Antidepress Not Detected (NotDetected) Ur Phencyclidine Scrn Not Detected (NotDetected) Ur Amphetamines Screen Not Detected (NotDetected) U Methamphetamines Scrn Not Detected (NotDetected) U Benzodiazepines Scrn Not Detected (NotDetected) Urine Cocaine Screen Not Detected (NotDetected) U Marijuana (THC) Screen Not Detected (NotDetected) Disposition <Ciro Bruce - Last Filed: 03/20/21 23:00> <Dilip Garcia - Last Filed: 03/21/21 08:46> Clinical Impression: Suicidal ideation, Alcohol intoxication Disposition: ADMITTED IP TO THIS HOSP Referrals: None,Stated [Primary Care Provider] - 1-2 days
[2021-03-20] MEDS ORDERED: LORazepam 2 MG/ML INJ IV PRN (19:19)
[2021-03-20 19:29] LABS: Amphetamine Screen,Urine Not Detected (NotDetected); Barbiturate Screen,Urine Not Detected (NotDetected); Benzodiazepines Screen,Urine Not Detected (NotDetected); Cocaine Screen,Urine Not Detected (NotDetected); Methadone Screen, Urine Not Detected (NotDetected); Opiate Screen,Urine Not Detected (NotDetected); Oxycodone Screen, Urine Not Detected (NotDetected); Phencyclidine Screen,Urine Not Detected (NotDetected); Tricyclic Antidepressant,Urine Not Detected (NotDetected); Urn Cannabinoid Scrn Not Detected (NotDetected)
[2021-03-21] MEDS ORDERED: LORazepam 2 MG/ML INJ IM PRN (09:27)
[2021-03-21] MEDS ORDERED: haloperidoL 5 MG TAB PO PRN (09:27)
[2021-03-21] MEDS ORDERED: HALOPERIDOL LACTATE 5 MG/ML 1 ML VIAL IM PRN (09:27)
[2021-03-21] MEDS ORDERED: ACETAMINOPHEN TAB 325 MG TAB PO PRN (09:28)
[2021-03-21] MEDS ORDERED: MAGNESIUM HYDROXIDE 2,400 MG/10 ML CUP PO PRN (09:28)
[2021-03-21] MEDS ORDERED: MAG HYDROX/AL HYDROX/SIMETH 30 ML CUP PO PRN (09:28)
--- NOTE | 2021-03-21 11:08 | P.HP ---
Psychiatric H&P - . H&P Date: 03/21/21 History & Physical: IDENTIFYING DATA: Javier is a 60-year-old homeless male admitted to the psychiatric unit involuntarily. HISTORY OF PRESENT ILLNESS: The police brought him to the ED and completed the petition alleging that he said "I'm going to jump into the river and he will never find me." He was intoxicated on presentation to the ED with a alcohol level of 257. When I inquired as reason for this hospitalization he replied that he didn't know. "I guess my sister was worried about me so she called the police. ... She thought that I might do this again (pointing to his left forearm)." I asked if he had spoken to her about having suicidal thoughts he replied that he didn't remember. He admitted that he is had continued feelings of hopelessness and thoughts of suicide since he was last discharged from this unit in January. He ke pt his appointment with community mental health but has not been compliant with medications other than Neurontin for neuropathic pain in his left arm. He complains that the medications medications cause sedation and "you can't be groggy when you're homeless." He described continued thoughts of suicide but would not admit to a specific plan or an intent. Since his discharge from the unit in January he has been homeless. 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 He spent one night in the longterm and because of conflict with the managers of the longterm and "cannot return.". He states that his sisters bring him food and he goes to his sister's house to shower and wash his clothes. He drinks alcohol every day. When asked about amount replied "whenever I can get." He denied use of other drugs. His UDS was negative for drugs of abuse. He denied current alcohol withdrawal symptoms including nausea, vomiting, diaphoresis or sensitivity to light, sound or touch. He denied experiencing persistent uncontrolled anxiety. He denied experiencing auditory, visual or olfactory hallucinations, ideas reference, thought insertion, thought broadcasting or thought control. PAST PSYCHIATRIC HISTORY: He is had several psychiatric hospitalizations; According to our medical record this a has fifth admission to our abuse last discharged from 02/09/2021 with the diagnoses of major depressive disorder, alcohol dependence and nicotine dependence. His history of multiple suicide attempts including a laceration to the forearm extends from the wrist to above the elbow. He described multiple other suicide his symptoms were cut other areas of he left forearm. Medical record indicates that he has attempted in the past to "drink himself to ." PAST MEDICAL HISTORY: He has a history of compensated cirrhosis of liver and CVA with cardiac stenosis ALLERGIES: Known drug ALLERGIES SUBSTANCE USE HISTORY: He has a long history of some alcohol use disorder. According history began drinking was 18 years old. He has had DWIs. FAMILY PSYCHIATRIC/SUBSTANCE USE HISTORY: He denied a family history of mental illness but then stated that one of his uncles committed suicide. He denied a history of substance abuse in the family. LEGAL HISTORY: He is not on probation, pro or has pending charges. SOCIAL HISTORY: 10th grade education. He has worked construction in the past. He is unemployed and homeless. He alleges that he has no income but the record indicates he receives social security income. He has 3 sisters and 2 brothers. His father is . He is never and has 2 children out of wedlock with whom he is estranged. MENTAL STATUS EXAM: He presented as a tall unkempt and disheveled appearing male who was pleasant on approach. He made eye contact and appeared to attend to the interview. He had a long healed laceration along his left forearm with smaller scarring on his wrist. He had no prominent physical modalities. He had a bright facial expression. He was alert and oriented to person, place and time. He showed no abnormality of psychomotor activity. His gait was steady. His speech was spontaneous, halting but with normal volume and rhythm. He had no articulation difficulties. His affect was bright and inappropriate for the circumstances that brought him to the hospital. He described continued suicidal ideation and wishes. He denied homicidal ideation. He did not express clear feelings of hopelessness, helplessness and worthlessness. He showed no obsessions or ruminations. The real ideas reference, paranoid ideation or delusions. His thinking was concrete but his associations were coherent, logical and goal directed. He denied hallucinations did not appear to be responding to internal stimuli. Global impression of intellect is average. He has limited awareness or understanding of his illness but is accepting of treatment. STRENGTHS: Resourceful, supportive family, engagement with mental health services WEAKNESSES: Homelessness, chronic alcohol use, poor compliance with treatment IMPRESSION: He is a 60-year-old homeless male who has a long history of an alcohol use disorder. [facility] with a history of continued suicidal ideation and thoughts of suicide. His history is significant for multiple suicide attempts that occur when he is intoxicated. He should be treated inpatient basis with combination of psychopharmacology and multimodal therapy. PRINCIPLE DIAGNOSIS: Alcohol use disorder severe, alcohol withdrawal, alcohol induced mood disorder, rule out major depressive disorder, multiple suicide attempts, lack of stable housing RECOMMENDATION: Admitted to the psychiatric unit. Safety precautions. Consult medicine for initial physical exam and medical history. metal worker completed initial psychosocial assessment to coordinate discharge and aftercare. Resume outpatient medications including Neurontin 3 mg 3 times a day, Zoloft 100 mg daily, and Desyrel 100 mg at bedtime. Folic acid, multivitamins and thiamine for chronic alcohol use. Habitrol for smoking cessation. CIWA with Ativan for alcohol withdrawal. Encourage participation in therapeutic groups and activities. Evaluate clinical status response to treatment daily basis. Allergies Allergy/AdvReac Type Severity Reaction Status Date / Time No Known Allergies Allergy Verified 03/20/21 18:03 Vital Signs Temp 98.1 F 03/20/21 18:03 Pulse 100 03/21/21 06:51 Resp 16 03/21/21 06:51 BP 145/86 03/21/21 06:51 Pulse Ox 98 03/21/21 06:51 Intake & Output 03/20/21 03/21/21 03/21/21 18:59 06:59 18:59 Weight 77.111 kg Laboratory Last Values Urine Opiates Screen Not Detected (NotDetected) 03/20/21 18:49 Ur Oxycodone Screen Not Detected (NotDetected) 03/20/21 18:49 Urine Methadone Screen Not Detected (NotDetected) 03/20/21 18:49 Ur Propoxyphene Screen Not Detected (NotDetected) 03/20/21 18:49 Ur Barbiturates Screen Not Detected (NotDetected) 03/20/21 18:49 U Tricyclic Antidepress Not Detected (NotDetected) 03/20/21 18:49 Ur Phencyclidine Scrn Not Detected (NotDetected) 03/20/21 18:49 Ur Amphetamines Screen Not Detected (NotDetected) 03/20/21 18:49 U Methamphetamines Scrn Not Detected (NotDetected) 03/20/21 18:49 U Benzodiazepines Scrn Not Detected (NotDetected) 03/20/21 18:49 Urine Cocaine Screen Not Detected (NotDetected) 03/20/21 18:49 U Marijuana (THC) Screen Not Detected (NotDetected) 03/20/21 18:49 Coronavirus (PCR) Not Detected (Not Detectd) 03/21/21 08:51 03/21/21 10:41
[2021-03-21] MEDS: PANTOPRAZOLE 40 MG TABLET PO SCH (12:23)
[2021-03-21] MEDS: SERTRALINE 100 MG TAB PO SCH (12:23)
[2021-03-21] MEDS: MULTIVITAMINS, THERA 1 EACH TAB PO SCH (12:23)
[2021-03-21] MEDS: ASPIRIN 81 MG PO SCH (12:23)
[2021-03-21] MEDS: THIAMINE 100 MG TAB PO SCH (12:23)
[2021-03-21] MEDS: FOLIC ACID 1 MG TAB PO SCH (12:23)
[2021-03-21] MEDS: NICOTINE 14MG/24HR PATCH TRANSDERM SCH (12:24)
[2021-03-21] MEDS: GABAPENTIN 300 MG CAP PO SCH ×2 (15:56→21:22)
[2021-03-21] MEDS: LORazepam 1 MG TAB PO PRN (15:57)
[2021-03-21] MEDS: traZODone HCL 100 MG TAB PO SCH (20:39)
[2021-03-22 07:07] LABS: Basophils % (A) 0 %; Eosinophils # (A) 0.2 k/uL (0-0.7); Eosinophils % (A) 3 %; HCT 45.6 % (39.0-53.0); HGB 15.2 gm/dL (13.0-17.5); Lymphocytes # (A) 2.6 k/uL (1.0-4.8); Lymphocytes % (A) 37 %; MCH 31.4 pg (25.0-35.0); MCHC 33.3 g/dL (31.0-37.0); MCV 94.4 fL (80.0-100.0); Mean Platelet Volume 7.9; Monocytes # (A) 0.3 k/uL (0-1.0); Monocytes % (A) 5 %; Neutrophils # (A) 3.9 k/uL (1.3-7.7); Neutrophils % (A) 54 %; Platelet Count 195 k/uL (150-450); RBC 4.83 m/uL (4.30-5.90); RDW 15.2 % (11.5-15.5); WBC 7.1 k/uL (3.8-10.6)
[2021-03-22 07:30] LABS: ALT 24 U/L (4-49); AST 33 U/L (17-59); African American GFR (CKD) >90 (>60 ml/min/1.73 sqM); Albumin 3.7 g/dL (3.5-5.0); Alkaline Phosphatase 76 U/L (38-126); Anion Gap 8 mmol/L; Blood Urea Nitrogen 9 mg/dL (9-20); Calcium 9.7 mg/dL (8.4-10.2); Carbon Dioxide 26 mmol/L (22-30); Chloride 104 mmol/L (98-107); Glucose 88 mg/dL (74-99); Non-African American GFR(CKD) >90 (>60 ml/min/1.73 sqM); Potassium 3.8 mmol/L (3.5-5.1); Sodium 138 mmol/L (137-145); Total Bilirubin 0.5 mg/dL (0.2-1.3); Total Protein 6.8 g/dL (6.3-8.2)
[2021-03-22] MEDS: NICOTINE 14MG/24HR PATCH TRANSDERM SCH (08:23)
[2021-03-22] MEDS: PANTOPRAZOLE 40 MG TABLET PO SCH (08:23)
[2021-03-22] MEDS: FOLIC ACID 1 MG TAB PO SCH (08:23)
[2021-03-22] MEDS: THIAMINE 100 MG TAB PO SCH (08:23)
[2021-03-22] MEDS: ASPIRIN 81 MG PO SCH (08:24)
[2021-03-22] MEDS: MULTIVITAMINS, THERA 1 EACH TAB PO SCH (08:24)
[2021-03-22] MEDS: SERTRALINE 100 MG TAB PO SCH (08:24)
[2021-03-22] MEDS: LORazepam 1 MG TAB PO PRN (08:25)
[2021-03-22] MEDS: GABAPENTIN 300 MG CAP PO SCH ×3 (08:25→20:48)
--- NOTE | 2021-03-22 11:23 | P.PN ---
Progress Note - Text Progress Note Date: 03/22/21 Interval History: Patient was seen resting in bed and was agreeable directable to speak with junior underwriter in the office. Currently, the patient is reporting no suicidal or homicidal ideation, intention, and/or plan. He states that his suicidal thoughts and urges are usually impulsive. He identifies that his main stressor is his current homeless situation. He reports symptoms of hopelessness and helplessness. He is not reporting any auditory or visualizations. He denies an y paranoia or delusions. He denies any issues regarding his sleep or appetite during this admission. He has been in adherent with his medications and is not endorsing any significant side effects at this time. He states that he was not in and with his previously prescribed psychotropic medications because he did not want to feel overly sedated as he is currently homeless and needs to be awake and alert in order to survive out there. Mental Status Exam: General Appearance: Patient appears to be stated age is alert, directable, and cooperative. The patient has noticeable scars on his bilateral forearms that are very pronounced and deep. Behavior: Patient is calmly seated without any agitated behavior. Eye contact is appropriate. Psychomotor activity is normal. Speech: Patient's speech is fluent and nonpressured. Mood/Affect: Mood is improving mildly, affect is congruent and constricted. Suicidality/Homicidality: Patient denies having any suicidal or homicidal ideation intent or plan. Perceptions: Patient denies any visual hallucinations and denies any auditory hallucinations Though content/process: There is no evidence of any delusional thought content and thought process is linear and goal-directed. Memory and concentration: AOX3, grossly intact for the purposes of this session Judgment and insight: Improving mildly Vital Signs Temp 98.7 F 03/21/21 09:36 Pulse 133 H 03/22/21 08:28 Resp 20 03/21/21 15:55 BP 107/68 03/22/21 08:28 Pulse Ox 98 03/21/21 06:51 Intake & Output 03/21/21 03/22/21 03/22/21 18:59 06:59 18:59 Weight 77.111 kg Laboratory Results - Last 24 Hours 03/22/21 03/22/21 06:15 06:15 WBC 7.1 RBC 4.83 Hgb 15.2 Hct 45.6 MCV 94.4 MCH 31.4 MCHC 33.3 RDW 15.2 Plt Count 195 MPV 7.9 Neutrophils % 54 Lymphocytes % 37 Monocytes % 5 Eosinophils % 3 Basophils % 0 Neutrophils # 3.9 Lymphocytes # 2.6 Monocytes # 0.3 Eosinophils # 0.2 Basophils # 0.0 Sodium 138 Potassium 3.8 Chloride 104 Carbon Dioxide 26 Anion Gap 8 BUN 9 Creatinine 0.55 L Est GFR (CKD-EPI)AfAm >90 Est GFR (CKD-EPI)NonAf >90 Glucose 88 Calcium 9.7 Total Bilirubin 0.5 AST 33 ALT 24 Alkaline Phosphatase 76 Total Protein 6.8 Albumin 3.7 TSH 1.080 Assessment Major depressive disorder, recurrent, severe Alcohol use disorder Plan: -Patient continues to meet criteria for inpatient psychiatric admission for symptom stabilization and safety. Patient has signed adult voluntary form and medication consent and was placed in patient's chart. -Medications: Continue gabapentin 300 mg by mouth 3 times a day for off label use for anxiety Continue Zoloft 100 mg by mouth daily for depression/anxiety Continue trazodone 100 mg by mouth at bedtime for insomnia Start lithium 300 mg by mouth twice a day for chronic suicidality and impulsivity Start Valium 5 mg by mouth 3 times a day for alcohol withdrawal Consider naltrexone for alcohol use disorder. -When necessary Ativan and Halol for agitation/aggression. -NRT - nicotine patch -SW on board for discharge planning. Encouraged the patient to participate in milieu.
[2021-03-22 11:53] LABS: Cholesterol 187 mg/dL (0-200); LDL Cholesterol,Calculated 70.2 mg/dL (0.0-131.0)
[2021-03-22 15:27] LABS: Hemoglobin A1C 5.1 % (4.0-6.0)
[2021-03-22] MEDS: diazePAM 5 MG TAB PO SCH ×2 (16:30→20:48)
[2021-03-22] MEDS: LITHIUM CARBONATE 300 MG CAP PO SCH (20:48)
[2021-03-22] MEDS: traZODone HCL 100 MG TAB PO SCH (20:48)
--- NOTE | 2021-03-23 01:14 | P.MDCNMH ---
History of Present Illness H&P Date: 03/22/21 Chief Complaint: medical evaluation 60 year old male denies any past medical history , he has struggled with depression for many years, with suicidal attempts in the past, he comes in this time for overwhelming depression and suicidal ideation . he was planning to cut himself again . he otherwise denies any medical concerns , denies any fever, chills, chest pain , SOB, abd pain , nausea vomiting , changes in his urinary or bowel habits. Review of Systems Pertinent positives as noted in HPI. All other systems were reviewed and are negative Past Medical History Past Medical History: CVA/TIA, Liver Disease, Skin Disorder History of Any Multi-Drug Resistant Organisms: None Reported Past Surgical History: Hernia Repair, Orthopedic Surgery Additional Past Surgical History / Comment(s): rt arm, lt wrist. left forearm i ncisional ports Past Anesthesia/Blood Transfusion Reactions: No Reported Reaction Past Psychological History: Anxiety, Depression Additional Psychological History / Comment(s): suicidal attempt 01/06/21 cutting forearm-inpt for mental health Smoking Status: Current every day smoker Past Alcohol Use History: Abuse, Daily Past Drug Use History: None Reported - Past Family History family Family Medical History: Hyperlipidemia Medications and Allergies Home Medications Medication Instructions Recorded Confirmed Type Aspirin EC [Ecotrin Low Dose] 81 mg PO DAILY 30 Days tab 02/09/21 03/20/21 Rx Folic Acid 1 mg PO DAILY 30 Days tab 02/09/21 03/20/21 Rx Gabapentin [Neurontin] 300 mg PO TID 14 Days #42 cap 02/09/21 03/20/21 Rx Multivitamins, Thera [Multivitamin 1 each PO DAILY 30 Days tab 02/09/21 03/20/21 Rx (formulary)] Nicotine 14Mg/24Hr Patch [Habitrol] 1 patch TRANSDERM DAILY 14 Days 02/09/21 03/20/21 Rx patch Pantoprazole Sodium [Protonix] 40 mg PO DAILY 30 Days tab 02/09/21 03/20/21 Rx Sertraline [Zoloft] 100 mg PO DAILY 30 Days tab 02/09/21 03/20/21 Rx Thiamine [Vitamin B-1] 100 mg PO DAILY 30 Days tab 02/09/21 03/20/21 Rx traZODone HCL [Desyrel] 100 mg PO HS 30 Days tab 02/09/21 03/20/21 Rx Allergies Allergy/AdvReac Type Severity Reaction Status Date / Time No Known Allergies Allergy Verified 03/20/21 18:03 Physical Exam Vitals: Vital Signs Temp Pulse Resp BP 03/22/21 20:52 96.9 F L 113 H 18 124/81 03/22/21 19:11 117 H 119/80 03/22/21 16:30 131 H 112/77 03/22/21 12:53 116 H 03/22/21 08:28 133 H 107/68 Constitutional: No acute distress, conversant, pleasant Eyes: Anicteric sclerae, moist conjunctiva, Pupils equal round reactive to light ENMT: NC/AT Oropharynx clear, no erythema, or exudates Neck: Supple, FROM, no masses, or JVD No carotid bruits No thyromegaly Lungs: Clear to auscultation Clear to percussion Normal respiratory effort, no accessory muscle use Cardiovascular: Heart regular in rate and rhythm, No murmurs, gallops, or rubs No peripheral edema Abdominal: Soft Nontender, no guarding, rebound or rigidity Abdomen moving with respiration Normoactive bowel sounds No hepatomegaly, No splenomegaly No palpable mass No abdominal wall hernia noted Skin: scarring over the left forearm from prior suicidal attempts and surgical repairs otherwise, Normal temperature, tone, texture, turgor No induration No subcutaneous nodules No rash, lesions No ulcers Extremities: No digital cyanosis No clubbing Pedal pulses intact and symmetrical Radial pulses intact and symmetrical No calf tenderness Psychiatric: Alert and oriented to person, place and time Neuro Muscles Strength 5/5 in all 4 extremities Sensation to light touch grossly present throughout Cranial nerves II-XII grossly intact No focal sensory deficits Lymphatics: no palpable cervical or supraclavicular , or inguinal lymph nodes Cranial Nerve Examination - Cranial Nerves Cranial Nerve II- Optic: Intact Cranial Nerve III- Oculomotor: Intact Cranial Nerve IV- Trochlear: Intact Cranial Nerve V- Trigeminal: Intact Cranial Nerve - Abducens: Intact Cranial Nerve VII- Facial: Intact Cranial Nerve VIII- Auditory: Intact Cranial Nerve IX- Glossopharyngeal: Intact Cranial Nerve X- Vagus: Intact Cranial Nerve XI- Accessory: Intact Cranial Nerve XII- Hypoglossal: Intact Results CBC & Chem 7: 03/22/21 06:15 03/22/21 06:15 Labs: Abnormal Lab Results - Last 24 Hours (Table) 03/22/21 Range/Units 06:15 Creatinine 0.55 L (0.66-1.25) mg/dL Triglycerides 194.0 H (0.0-149.0) mg/dL HDL Cholesterol 78.0 H (40.0-60.0) mg/dL Assessment and Plan Assessment: depression and suicidal ideation management per psych labs reviewed Thank you for allowing us to participate in the care of this patient. We will follow peripherally. Do not hesitate to contact us with questions. Someone can be reached from the [facility] hospitalist group at all hours of the day at [phone].
[2021-03-23] MEDS: NICOTINE 14MG/24HR PATCH TRANSDERM SCH (08:57)
[2021-03-23] MEDS: MULTIVITAMINS, THERA 1 EACH TAB PO SCH (08:58)
[2021-03-23] MEDS: LITHIUM CARBONATE 300 MG CAP PO SCH (08:58)
[2021-03-23] MEDS: diazePAM 5 MG TAB PO SCH ×2 (08:58→21:09)
[2021-03-23] MEDS: SERTRALINE 100 MG TAB PO SCH (08:58)
[2021-03-23] MEDS: ASPIRIN 81 MG PO SCH (08:58)
[2021-03-23] MEDS: THIAMINE 100 MG TAB PO SCH (08:58)
[2021-03-23] MEDS: PANTOPRAZOLE 40 MG TABLET PO SCH (08:58)
[2021-03-23] MEDS: FOLIC ACID 1 MG TAB PO SCH (08:58)
[2021-03-23] MEDS: GABAPENTIN 300 MG CAP PO SCH ×3 (08:58→21:08)
[2021-03-23] MEDS ORDERED: LITHIUM CARBONATE 150 MG CAP PO STA (11:08)
--- NOTE | 2021-03-23 11:12 | P.PN ---
Progress Note - Text Progress Note Date: 03/23/21 Interval History: Patient was seen resting in bed and was agreeable directable to speak with wr iter in the office. Currently the patient is not endorsing any suicidal or homicidal ideation, intention, and/or plan. He is not reporting any auditory or visual hallucinations. He is not in any paranoia or delusions. Patient has been attributed his medications and is not endorsing any significant side effects at this time. The patient acknowledges a huge problem for him is his alcohol use disorder. The patient states that he plans to stay with his mother upon discharge but is waiting for his mother to move to a new home. He states that he does not usually take his medications because he is afraid that he would be feeling too sedated which is unsafe for him when he is homeless. The patient denies any issues regarding his sleep or his appetite. Mental Status Exam: General Appearance: Patient appears to be stated age is alert, directable, and cooperative. The patient has noticeable scars on his bilateral forearms that are very pronounced and deep. Behavior: Patient is calmly seated without any agitated behavior. Eye contact is appropriate. Psychomotor activity is normal. Speech: Patient's speech is fluent and nonpressured. Mood/Affect: Mood is improving mildly, affect is congruent and constricted. Suicidality/Homicidality: Patient denies having any suicidal or homicidal ideation intent or plan. Perceptions: Patient denies any visual hallucinations and denies any auditory hallucinations Though content/process: There is no evidence of any delusional thought content and thought process is linear and goal-directed. Memory and concentration: AOX3, grossly intact for the purposes of this session Judgment and insight: Improving mildly Vital Signs Temp 96.8 F L 03/23/21 09:11 Pulse 122 H 03/23/21 09:11 Resp 16 03/23/21 09:11 BP 123/90 03/23/21 09:11 Pulse Ox 99 03/23/21 09:11 Laboratory Results - Last 24 Hours 03/22/21 03/22/21 06:15 06:[address] Glu mg/dL 100 Hemoglobin A1c 5.1 Triglycerides 194.0 H Cholesterol 187 LDL Cholesterol, Calc 70.2 VLDL Cholesterol, Calc 38.80 HDL Cholesterol 78.0 H Cholesterol/HDL Ratio 2.40 Assessment Major depressive disorder, recurrent, severe Alcohol use disorder Plan: -Patient continues to meet criteria for inpatient psychiatric admission for symptom stabilization and safety. Patient has signed adult voluntary form and medication consent and was placed in patient's chart. -Medications: Continue gabapentin 300 mg by mouth 3 times a day for off label use for anxiety Continue Zoloft 100 mg by mouth daily for depression/anxiety Continue trazodone 100 mg by mouth at bedtime for insomnia Increase lithum to 450 mg by mouth twice a day for chronic suicidality and impulsivity Decrease Valium to 5 mg by mouth 2 times a day for alcohol withdrawal Consider naltrexone for alcohol use disorder. -When necessary Ativan and Halol for agitation/aggression. -NRT - nicotine patch -SW on board for discharge planning. Encouraged the patient to participate in milieu.
[2021-03-23] MEDS ORDERED: LITHIUM CARBONATE 150 MG CAP PO SCH (21:00)
[2021-03-23] MEDS: LITHIUM CARBONATE 150 MG CAP PO SCH (21:08)
[2021-03-23] MEDS: traZODone HCL 100 MG TAB PO SCH (21:08)
[2021-03-24 06:10] VITALS: TEMP 98
[2021-03-24] MEDS: NICOTINE 14MG/24HR PATCH TRANSDERM SCH (08:31)
[2021-03-24] MEDS: ASPIRIN 81 MG PO SCH (08:32)
[2021-03-24] MEDS: SERTRALINE 100 MG TAB PO SCH (08:33)
[2021-03-24] MEDS: MULTIVITAMINS, THERA 1 EACH TAB PO SCH (08:33)
[2021-03-24] MEDS: PANTOPRAZOLE 40 MG TABLET PO SCH (08:33)
[2021-03-24] MEDS: THIAMINE 100 MG TAB PO SCH (08:33)
[2021-03-24] MEDS: FOLIC ACID 1 MG TAB PO SCH (08:33)
[2021-03-24] MEDS: LITHIUM CARBONATE 150 MG CAP PO SCH ×2 (08:33→10:22)
[2021-03-24] MEDS: diazePAM 5 MG TAB PO SCH (08:33)
[2021-03-24] MEDS: GABAPENTIN 300 MG CAP PO SCH (08:37)
[2021-03-24 08:41] VITALS: BP 131/80; PULSE 116; RESP 20
--- NOTE | 2021-03-24 11:33 | P.DS ---
Providers Date of admission: 03/21/21 09:20 Expected date of discharge: 03/24/21 Attending physician: Ron Olivares MD Consults: 03/21/21 09:28 Consult Physician Routine Consulting Provider: Vidya Perez Consult Reason/Comments: H and P Do you want consulting provider notified?: Yes Primary care physician: Stated None - Discharge Diagnosis(es) (1) Major depressive disorder, recurrent severe without psychotic features Current Visit: Yes Status: Acute Priority: High (2) Alcohol dependence Current Visit: Yes Status: Chronic Priority: Medium (3) Nicotine dependence Current Visit: Yes Status: Chronic Priority: Medium Hospital Course: Admission HPI: Initial psychiatric evaluation was completed by Dr. Dobbs on 03/21/21 who wrote: " Javier is a 60-year-old homeless male admitted to the psychiatric unit involuntarily. The police brought him to the ED and completed the petition alleging that he said "I'm going to jump into the river and he will never find me." He was intoxicated on presentation to the ED with a alcohol level of 257. When I inquired as reason for this hospitalization he replied that he didn't know. "I guess my sister was worried about me so she called the police. ... She thought that I might do this again (pointing to his left forearm)." I asked if he had spoken to her about having suicidal thoughts he replied that he didn't remember. He admitted that he is had continued feelings of hopelessness and tho ughts of suicide since he was last discharged from this unit in January. He kept his appointment with community mental health but has not been compliant with medications other than Neurontin for neuropathic pain in his left arm. He complains that the medications medications cause sedation and "you can't be groggy when you're homeless." He described continued thoughts of suicide but would not admit to a specific plan or an intent. Since his discharge from the unit in January he has been homeless. 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 at [facility]. He spent one night in the nursing home and because of conflict with the managers of the nursing home and "cannot return.". He states that his sisters bring him food and he goes to his sister's house to shower and wash his clothes. He drinks alcohol every day. When asked about amount replied "whenever I can get." He denied use of other drugs. His UDS was negative for drugs of abuse. He denied current alcohol withdrawal symptoms including nausea, vomiting, diaphoresis or sensitivity to light, sound or touch. He denied experiencing persistent uncontrolled anxiety. He denied experiencing auditory, visual or olfactory hallucinations, ideas reference, thought insertion, thought broadcasting or thought control. He is had several psychiatric hospitalizations; According to our medical record this a has fifth admission to our abuse last discharged from 02/09/2021 with the diagnoses of major depressive disorder, alcohol dependence and nicotine dependence. His history of multiple suicide attempts including a laceration to the forearm extends from the wrist to above the elbow. He described multiple other suicide his symptoms were cut other areas of he left forearm. Medical record indicates that he has attempted in the past to "drink himself to ."" Hospital course: Upon admission to the unit patient was initially presenting as bright which is incongruent and inappropriate given the circumstances that brought him to the hospital. The patient did continue to endorse suicidal ideation and wishes despite his bright disposition. Patient was however directable and agreeable to commence treatment. Patient got along well with other patients on the unit and followed unit protocol. Patient was compliant with the medications and denied any side effects throughout hospital course. Patient was started on his outpatient medications of Neurontin, Zoloft, and trazodone. The patient was also placed on [facility] protocol for alcohol withdrawal. Patient spoke of his stressors and engaged in therapy both group and individual. Patient was also seen by medical team for history and physical exam. Due to his history of impulsivity and suicidal ideation and wishes, the patient was started on lithium to address these target symptoms. Furthermore, the patient displayed some autonomic instability likely secondary to his alcohol withdrawal and therefore was started on Valium 5 mg 3 times daily. Valium was eventually tapered off as the patient continued to improve regards to his alcohol withdrawal symptoms. [place] was gradually titrated to a final dose of 450 mg twice a day. The patient's other medications were continued. Throughout the course of the hospitalization patient gradually improved with regards to his mood and his suicidal urges and thoughts. On the day of discharge patient denied any suicidal or homicidal ideations intent or plan denied any auditory or visual hallucinations. Patient endorsed wanting to live for his health and family. The patient states that he plans on taking care of his mother. The patient denied any access to guns or weapons. Patient denied any paranoia and did not endorse any delusions. Patient does have a significant history of substance abuse however was counseled on abstaining from all substances including alcohol and marijuana. Patient was offered however declined inpatient substance-abuse rehab. Patient was also counseled on the medications and need for regular compliance and was encouraged to follow-up with their outpatient appointment for mental health and also for primary care. Prior to discharge a family meeting will be arranged by social science professor to answer any questions and ensure safety upon discharge. Mental status exam: General Appearance: Patient appears to be stated age is alert, pleasant, and c ooperative. Patient is in no acute distress and has fair hygiene and grooming. Noticeable healed scars on his bilateral forearms. Behavior: Patient is calmly seated without any agitated behavior. Psychomotor activity is normal. Eye contact is appropriate. Speech: Patient's speech is fluent and nonpressured. Mood/Affect: Patient reports their mood is "really good", affect is congruent and euthymic and bright. Suicidality/Homicidality: Patient denies having any suicidal or homicidal ideation intent or plan. Perceptions: Patient denies any auditory or visual hallucinations. Though content/process: There is no evidence of any delusional thought content and thought process is linear and goal-directed. The patient is future oriented. Memory and concentration: AOX3, grossly intact for the purposes of this session. Can spell "WORLD" backwards correctly. Judgment and insight: Improved with guarded prognosis Vital Signs Temp 98.0 F 03/24/21 06:09 Pulse 116 H 03/24/21 08:39 Resp 20 03/24/21 08:39 BP 131/80 03/24/21 08:39 Pulse Ox 97 03/24/21 06:09 Impression: Major depressive disorder, recurrent, severe Alcohol use disorder Nicotine dependence Plan: -Continue with discharge today as patient has improved and stabilized psychiatrically and is not currently an imminent threat to himself and/or others. Patient will remain at chronically elevated risk for harm to self and/or others due to his impulsivity and polysubstance abuse. -Continue medications: Zoloft 100 mg by mouth daily for depression/anxiety Trazodone 100 mg daily at bedtime for depression/insomnia [place] 450 mg by mouth twice a day for suicidality and impulsivity Gabapentin 300 mg by mouth 3 times a day for off label use for anxiety -Patient was counseled on the need for medication compliance and appropriate follow-up at mental health and also primary care for medical issues. Patient verbalized understanding and agreed. -Social work to arrange for and conduct family meeting to ensure safety upon discharge and answer any questions/concerns. Social work also to arrange for patients follow up appointments with [facility] for psychiatric care along with follow up with primary care provider. -Patient counseled on abstaining from recreational drugs and marijuana and alcohol. Was informed/educated on the adverse effects on their physical and mental health. Patient verbally agreed and understood. Patient was offered substance abuse treatment however declined at this time. -Patient was instructed to return to the hospital or seek immediate medical care if their psychiatric or medical symptoms do worsen or reoccur. -Psychoeducation and supportive therapy provided to patient. Risks and benefits of pharmacological treatment versus the risks and benefits of nontreatment weight and discussed. Informed consent discussion held. Common side effects of psychotropics discussed such as, but not limited to headache, GI disturbance, sexual dysfunction, movement disorders, sedation, and orthostatic hypotension. Life threatening and blackbox warnings of prescribed medications also discussed. Potential risks of operating a vehicle or heavy machinery discussed with patient at length. Advised on importance of compliance and a reliable and responsible manner. Patient advised to review FDA consumer labeling of all medications prior to taking. Patient verbalized understanding of potential risks, and agrees with current treatment plan. Patient advised to medically contact physician/emergency personnel if any acute changes in condition occur. Laboratory Results WBC 7.1 k/uL (3.8-10.6) 03/22/21 06:15 RBC 4.83 m/uL (4.30-5.90) 03/22/21 06:15 Hgb 15.2 gm/dL (13.0-17.5) 03/22/21 06:15 Hct 45.6 % (39.0-53.0) 03/22/21 06:15 MCV 94.4 fL (80.0-100.0) 03/22/21 06:15 MCH 31.4 pg (25.0-35.0) 03/22/21 06:15 MCHC 33.3 g/dL (31.0-37.0) 03/22/21 06:15 RDW 15.2 % (11.5-15.5) 03/22/21 06:15 Plt Count 195 k/uL (150-450) 03/22/21 06:15 MPV 7.9 03/22/21 06:15 Neutrophils % 54 % 03/22/21 06:15 Lymphocytes % 37 % 03/22/21 06:15 Monocytes % 5 % 03/22/21 06:15 Eosinophils % 3 % 03/22/21 06:15 Basophils % 0 % 03/22/21 06:15 Neutrophils # 3.9 k/uL (1.3-7.7) 03/22/21 06:15 Lymphocytes # 2.6 k/uL (1.0-4.8) 03/22/21 06:15 Monocytes # 0.3 k/uL (0-1.0) 03/22/21 06:15 Eosinophils # 0.2 k/uL (0-0.7) 03/22/21 06:15 Basophils # 0.0 k/uL (0-0.2) 03/22/21 06:15 Sodium 138 mmol/L (137-145) 03/22/21 06:15 Potassium 3.8 mmol/L (3.5-5.1) 03/22/21 06:15 Chloride 104 mmol/L (98-107) 03/22/21 06:15 Carbon Dioxide 26 mmol/L (22-30) 03/22/21 06:15 Anion Gap 8 mmol/L 03/22/21 06:15 BUN 9 mg/dL (9-20) 03/22/21 06:15 Creatinine 0.55 mg/dL (0.66-1.25) L 03/22/21 06:15 Est GFR (CKD-EPI)AfAm >90 (>60 ml/min/1.73 sqM) 03/22/21 06:15 Est GFR (CKD-EPI)NonAf >90 (>60 ml/min/1.73 sqM) 03/22/21 06:15 Glucose 88 mg/dL (74-99) 03/22/21 06:[address] Glu mg/dL 100 03/22/21 06:15 Hemoglobin A1c 5.1 % (4.0-6.0) 03/22/21 06:15 Calcium 9.7 mg/dL (8.4-10.2) 03/22/21 06:15 Total Bilirubin 0.5 mg/dL (0.2-1.3) 03/22/21 06:15 AST 33 U/L (17-59) 03/22/21 06:15 ALT 24 U/L (4-49) 03/22/21 06:15 Alkaline Phosphatase 76 U/L (38-126) 03/22/21 06:15 Total Protein 6.8 g/dL (6.3-8.2) 03/22/21 06:15 Albumin 3.7 g/dL (3.5-5.0) 03/22/21 06:15 Triglycerides 194.0 mg/dL (0.0-149.0) H 03/22/21 06:15 Cholesterol 187 mg/dL (0-200) 03/22/21 06:15 LDL Cholesterol, Calc 70.2 mg/dL (0.0-131.0) 03/22/21 06:15 VLDL Cholesterol, Calc 38.80 mg/dL (5.00-40.00) 03/22/21 06:15 HDL Cholesterol 78.0 mg/dL (40.0-60.0) H 03/22/21 06:15 Cholesterol/HDL Ratio 2.40 03/22/21 06:15 TSH 1.080 mIU/L (0.465-4.680) 03/22/21 06:15 Urine Opiates Screen Not Detected (NotDetected) 03/20/21 18:49 Ur Oxycodone Screen Not Detected (NotDetected) 03/20/21 18:49 Urine Methadone Screen Not Detected (NotDetected) 03/20/21 18:49 Ur Propoxyphene Screen Not Detected (NotDetected) 03/20/21 18:49 Ur Barbiturates Screen Not Detected (NotDetected) 03/20/21 18:49 U Tricyclic Antidepress Not Detected (NotDetected) 03/20/21 18:49 Ur Phencyclidine Scrn Not Detected (NotDetected) 03/20/21 18:49 Ur Amphetamines Screen Not Detected (NotDetected) 03/20/21 18:49 U Methamphetamines Scrn Not Detected (NotDetected) 03/20/21 18:49 U Benzodiazepines Scrn Not Detected (NotDetected) 03/20/21 18:49 [place] <0.2 mmol/L 03/24/21 08:36 Urine Cocaine Screen Not Detected (NotDetected) 03/20/21 18:49 U Marijuana (THC) Screen Not Detected (NotDetected) 03/20/21 18:49 Coronavirus (PCR) Not Detected (Not Detectd) 03/21/21 08:51 Allergies Allergy/AdvReac Type Severity Reaction Status Date / Time No Known Allergies Allergy Verified 03/20/21 18:03 Patient Condition at Discharge: Stable Plan - Discharge Summary Discharge Rx Participant: Yes New Discharge Prescriptions: New Sertraline [Zoloft] 100 mg PO DAILY 30 Days tab Aspirin 81 mg PO DAILY 30 Days traZODone HCL [Desyrel] 100 mg PO HS 30 Days tab Nicotine 14Mg/24Hr Patch [Habitrol] 1 patch TRANSDERM DAILY 30 Days patch [place] Carbonate 450 mg PO BID 30 Days cap Gabapentin [Neurontin] 300 mg PO TID 30 Days cap Continue Folic Acid 1 mg PO DAILY 30 Days tab Thiamine [Vitamin B-1] 100 mg PO DAILY 30 Days tab Pantoprazole Sodium [Protonix] 40 mg PO DAILY 30 Days tab Multivitamins, Thera [Multivitamin (formulary)] 1 each PO DAILY 30 Days tab Discontinued Nicotine 14Mg/24Hr Patch [Habitrol] 1 patch TRANSDERM DAILY 14 Days patch traZODone HCL [Desyrel] 100 mg PO HS 30 Days tab Sertraline [Zoloft] 100 mg PO DAILY 30 Days tab Gabapentin [Neurontin] 300 mg PO TID 14 Days #42 cap Aspirin EC [Ecotrin Low Dose] 81 mg PO DAILY 30 Days tab Discharge Medication List Folic Acid 1 mg PO DAILY 30 Days tab 02/09/21 [Rx] Multivitamins, Thera [Multivitamin (formulary)] 1 each PO DAILY 30 Days tab 02/09/21 [Rx] Pantoprazole Sodium [Protonix] 40 mg PO DAILY 30 Days tab 02/09/21 [Rx] Thiamine [Vitamin B-1] 100 mg PO DAILY 30 Days tab 02/09/21 [Rx] Aspirin 81 mg PO DAILY 30 Days 03/24/21 [Rx] Gabapentin [Neurontin] 300 mg PO TID 30 Days cap 03/24/21 [Rx] [place] Carbonate 450 mg PO BID 30 Days cap 03/24/21 [Rx] Nicotine 14Mg/24Hr Patch [Habitrol] 1 patch TRANSDERM DAILY 30 Days patch 03/24/21 [Rx] Sertraline [Zoloft] 100 mg PO DAILY 30 Days tab 03/24/21 [Rx] traZODone HCL [Desyrel] 100 mg PO HS 30 Days tab 03/24/21 [Rx] Follow up Appointment(s)/Referral(s): None,Stated [Primary Care Provider] - 1-2 days Discharge Disposition: HOME SELF-CARE
== END 2021-03-24 14:32 | disposition home or self-care (01) | DRG 885 ==
LOC: EC 17:54 → 3MHU 03-21 09:20
PROVIDERS: ADMIT Psychiatry & Neurology Psychiatry; ATTEND Psychiatry & Neurology Psychiatry
DX: F33.2 Major depressive disorder, recurrent severe without psychotic features (principal); F10.24 Alcohol dependence with alcohol-induced mood disorder; R45.851 Suicidal ideations; F10.239 Alcohol dependence with withdrawal, unspecified; F41.9 Anxiety disorder, unspecified; G47.00 Insomnia, unspecified; F17.210 Nicotine dependence, cigarettes, uncomplicated; K74.60 Unspecified cirrhosis of liver; Y90.8 Blood alcohol level of 240 mg/100 ml or more; F10.229 Alcohol dependence with intoxication, unspecified; Z59.0 Homelessness; Z79.82 Long term (current) use of aspirin; Z79.899 Other long term (current) drug therapy; Z86.73 Personal history of transient ischemic attack (TIA), and cerebral infarction without residual deficits; Z91.14 Patient's other noncompliance with medication regimen; Z91.5 Personal history of self-harm; Z20.822 Contact with and (suspected) exposure to COVID-19
CPT/HCPCS: 80053; 80061; 80178; 80306; 82075; 83036; 84443; 85025; 87635; 96374; 99285

== ENCOUNTER 2023-11-26 13:33 | Emergency (ER) | payer MEDICAID, OTHER ==
--- NOTE | 2023-11-26 13:52 | ED ---
Abdominal Pain HPI - General Source: patient, RN notes reviewed Mode of arrival: ambulatory Limitations: no limitations <Katerina Nathan - Last Filed: 11/26/23 14:19> <Dilip Garcia - Last Filed: 11/26/23 15:44> <Amadou Nguyen - Last Filed: 11/27/23 05:39> - General Chief Complaint: Abdominal Pain Stated Complaint: Abd pain Time Seen by Provider: 11/26/23 13:48 - History of Present Illness Initial Comments: Quick noteis a 63-year-old male with a past medical history of cirrhosis, alcohol abuse and ventral hernias who presents emergency room chief complaint of abdominal pain. Patient is accompanied by his , is the POA, and provided most of the history. She states that he has been complaining of worsening abdominal pain over the past few days. He denies nausea, vomiting, diarrhea, constipation, fevers. states that patient was recently incarcerated and has been living at [facility]. Reports last drink was 5 months ago. (Katerina Nathan) This is a 63-year-old male who comes in with a past medical history significant for cirrhosis alcohol abuse but he has been dry for 5 months. And patient states he has had multiple inguinal hernia surgeries in the past the last one being 20 years ago. Patient states he had intermittent inguinal pain for the last 20 years and over the last week he has had it more on the right than the left but he has had a bilateral he states it starts in the testicle and radiates up to both inguinal areas. Patient denies any actual abdominal pain. Patient has any nausea vomiting diarrhea. Patient has any fever chills. Patient denies any dysuria hematuria or urinary frequency. Patient denies any back pain. Patient states she has had intermittent testicular pain over the last 20 (Dilip Garcia) - Related Data Previous Rx's Medication Instructions Recorded Naproxen 250 mg PO BID #24 tablet 11/26/23 Allergies Allergy/AdvReac Type Severity Reaction Status Date / Time No Known Allergies Allergy Verified 11/26/23 15:46 Review of Systems ROS Other: All systems not noted in ROS Statement are negative. <Katerina Nathan - Last Filed: 11/26/23 14:19> ROS Other: All systems not noted in ROS Statement are negative. <Dilip Garcia - Last Filed: 11/26/23 15:44> ROS Other: All systems not noted in ROS Statement are negative. <JaimeAmadou mejia - Last Filed: 11/27/23 05:39> ROS Statement: Those systems with pertinent positive or pertinent negative responses have been documented in the HPI. Past Medical History Past Medical History: CVA/TIA, Liver Disease, Skin Disorder History of Any Multi-Drug Resistant Organisms: None Reported Past Surgical History: Hernia Repair, Orthopedic Surgery Additional Past Surgical History / Comment(s): rt arm, lt wrist. left forearm incisional ports Past Anesthesia/Blood Transfusion Reactions: No Reported Reaction Past Psychological History: Anxiety, Depression Smoking Status: Current every day smoker Past Alcohol Use History: Abuse, Daily Past Drug Use History: None Reported - Past Family History family Family Medical History: Hyperlipidemia <Katerina Nathan - Last Filed: 11/26/23 14:19> General Exam Limitations: no limitations <Katerina Nathan - Last Filed: 11/26/23 14:19> <Dilip Garcia - Last Filed: 11/26/23 15:44> - General Exam Comments Initial Comments: Visual Physical Exam Vital signs reviewed General: Well-appearing, nontoxic, no acute distress. Head: Normocephalic, atraumatic Eyes: PERRLA, EOMI ENT: Airway patent Chest: Nonlabored breathing Skin: No visual rash, normal skin tone Neuro: Alert and oriented 3 Musculoskeletal: No gross abnormalities (Stieler,Katerina) GENERAL: Patient is well-developed and well-nourished. Patient is nontoxic and well- hydrated and is in mild distress. ENT: Neck is soft and supple. No significant lymphadenopathy is noted. Oropharynx is clear. Moist mucous membranes. Neck has full range of motion without wil citing any pain. EYES: The sclera were anicteric and conjunctiva were pink and moist. Extraocular movements were intact and pupils were equal round and reactive to light. Eyelids were unremarkable. PULMONARY: Unlabored respirations. Good breath sounds bilaterally. No audible rales rhonchi or wheezing was noted. CARDIOVASCULAR: There is a regular rate and rhythm without any murmurs gallops or rubs. ABDOMEN: Soft and nontender with normal bowel sounds. No palpable organomegaly was not ed. Patient has mild pain in either inguinal area SKIN: Skin is clear with no lesions or rashes and otherwise unremarkable. NEUROLOGIC: Patient is alert and oriented x3. Cranial nerves II through XII are grossly intact. Motor and sensory are also intact. Normal speech, volume and content. Symmetrical smile. MUSCULOSKELETAL: Normal extremities with adequate strength and full range of motion. LYMPHATICS: No significant lymphadenopathy is noted PSYCHIATRIC: Normal psychiatric evaluation. (Dilip Garcia) Course Vital Signs 11/26/23 11/26/23 11/26/23 13:44 19:09 20:01 Temperature 98.3 F 98.1 F Pulse Rate 102 H 85 87 Respiratory 20 16 16 Rate Blood Pressure 146/88 128/73 126/76 O2 Sat by Pulse 99 96 98 Oximetry Medical Decision Making <Katerina Nathan - Last Filed: 11/26/23 14:19> <Dilip Garcia - Last Filed: 11/26/23 15:44> - Lab Data Result diagrams: 11/26/23 16:09 11/26/23 16:09 <Amadou Nguyen - Last Filed: 11/27/23 05:39> - Medical Decision Making I completed the quick note portion of this chart signed Katerina Nathan PA-C (Katerina Nathan) Was pt. sent in by a medical professional or institution (BRANDIE Murphy, P[employer]CH [employer]PERATOR, urgent care, hospital, or jail...) When possible be specific @ -[No] Did you speak to anyone other than the patient for history (EMS, parent, family, police, friend...)? What history was obtained from this source @ -[No] Did you review nursing and triage notes (agree or disagree)? Why? @ -[I reviewed and agree with nursing and triage notes] Were old charts reviewed (outside hosp., previous admission, EMS record, old EKG, old radiological studies, urgent care reports/EKG's, jail records)? Report findings @ -[No old charts were reviewed] Differential Diagnosis (chest pain, altered mental status, abdominal pain women, abdominal pain men, vaginal bleeding, weakness, fever, dyspnea, syncope, headache, dizziness, GI bleed, back pain, seizure, CVA, palpatations, mental health, musculoskeletal)? @ -Differential Abdominal Pain Men: Appendicitis, cholecystitis, diverticulosis, ischemic bowel, pancreatitis, hepatitis, UTI, gastroenteritis, AAA, incarcerated hernia, bowel obstruction, constipation, inflammatory bowel, hepatitis, peptic ulcer disease, splenic infarction, perforated viscus, testicular torsion, this is not meant to be an all-inclusive list EKG interpreted by me (3pts min.). @ -[As above] X-rays interpreted by me (1pt min.). @ -[None done] CT interpreted by me (1pt min.). @ -[None done] U/S interpreted by me (1pt. min.). @ -[None done] What testing was considered but not performed or refused? (CT, X-rays, U/S, labs)? Why? @ -[None] What meds were considered but not given or refused? Why? @ -[None] Did you discuss the management of the patient with other professionals (professionals i.e. , PA, P[employer]CH PRESS OPERATOR, lab, RT, psych nurse, social science instructor, calibration laboratory technician, teacher, credit officer, bottle caser)? Give summary @ -[No] Was smoking cessation discussed for >3mins.? @ -[No] Was critical care preformed (if so, how long)? @ -[No] Were there social determinants of health that impacted care today? How? (Homelessness, low income, unemployed, alcoholism, drug addiction, t ransportation, low edu. Level, literacy, decrease access to med. care, long term, rehab)? @ -[No] Was there de-escalation of care discussed even if they declined (Discuss DNR or withdrawal of care, Hospice)? DNR status @ -[No] What co-morbidities impacted this encounter? (DM, HTN, Smoking, COPD, CAD, Can cer, CVA, ARF, Chemo, Hep., AIDS, mental health diagnosis, sleep apnea, morbid obesity)? @ -[None] Was patient admitted / discharged? Hospital course, mention meds given and route, prescriptions, significant lab abnormalities, going to OR and other pertinent info. @ -Patient was given Toradol for his pain. Ultrasound and CAT scan were ordered and Dr. Grewal will take over the care of this patient at 4 PM (Dilip Garcia) Was patient admitted / discharged? Hospital course, mention meds given and route, prescriptions, significant lab abnormalities, going to OR and other pertinent info. @ -[I received this patient at signout pending results of the imaging studies. I did have a chance to examine the patient after he was moved to a room. Examination of the patient's groin revealed that there was no hernia bilaterally. No testicular mass or abnormalities bilaterally. After returning the patient's studies, I did discuss the results including the appropriate fo llow-up and further care for the enlarged prostate and the chronic groin pain. Discussed return parameters. Undiagnosed new problem with uncertain prognosis? @ -[No] Drug Therapy requiring intensive monitoring for toxicity (Heparin, Nitro, Insulin, Cardizem)? @ -[No] Were any procedures done? @ -[No] Diagnosis/symptom? @ -[Acute exacerbation of chronic groin pain Enlarged prostate, probable chronic Acute, or Chronic, or Acute on Chronic? @ -[As above Uncomplicated (without systemic symptoms) or Complicated (systemic symptoms)? @ -[Uncomplicated Side effects of treatment? @ -[No] Exacerbation, Progression, or Severe Exacerbation? @ -[No] Poses a threat to life or bodily function? How? (Chest pain, USA, OR, pneumonia, PE, COPD, DKA, ARF, appy, cholecystitis, CVA, Diverticulitis, Homicidal, Suicidal, threat to staff... and all critical care pts) @ -[Low likelihood, however enlarged prostate requires further evaluation (Amadou Nguyen) - Lab Data Lab Results 11/26/23 11/26/23 11/26/23 Range/Units 16:09 16:09 16:09 WBC 7.8 (3.8-10.6) k/uL RBC 4.86 (4.30-5.90) m/uL Hgb 14.4 (13.0-17.5) gm/dL Hct 45.1 (39.0-53.0) % MCV 93.0 (80.0-100.0) fL MCH 29.8 (25.0-35.0) pg MCHC 32.0 (31.0-37.0) g/dL RDW 14.1 (11.5-15.5) % Plt Count 249 (150-450) k/uL MPV 8.0 Neutrophils % 49 % Lymphocytes % 42 % Monocytes % 5 % Eosinophils % 2 % Basophils % 1 % Neutrophils # 3.8 (1.3-7.7) k/uL Lymphocytes # 3.3 (1.0-4.8) k/uL Monocytes # 0.4 (0-1.0) k/uL Eosinophils # 0.2 (0-0.7) k/uL Basophils # 0.1 (0-0.2) k/uL PT 9.7 L (10.0-12.5) sec INR 0.9 (<1.2) APTT 23.6 (22.0-30.0) sec Sodium 140 (137-145) mmol/L Potassium 4.4 (3.5-5.1) mmol/L Chloride 107 (98-107) mmol/L Carbon Dioxide 24 (22-30) mmol/L Anion Gap 9 mmol/L BUN 12 (9-20) mg/dL Creatinine 0.42 L (0.66-1.25) mg/dL Est GFR (CKD-EPI)AfAm >90 (>60 ml/min/1.73 sqM) Est GFR (CKD-EPI)NonAf >90 (>60 ml/min/1.73 sqM) Glucose 80 (74-99) mg/dL Plasma Lactic Acid Sanjeev (0.7-2.0) mmol/L Calcium 9.2 (8.4-10.2) mg/dL Total Bilirubin 0.6 (0.2-1.3) mg/dL AST 36 (17-59) U/L ALT 19 (4-49) U/L Alkaline Phosphatase 54 (38-126) U/L Total Protein 7.9 (6.3-8.2) g/dL Albumin 4.4 (3.5-5.0) g/dL Amylase 58 (30-110) U/L Lipase 129 (23-300) U/L Urine Color Urine Appearance (Clear) Urine pH (5.0-8.0) Ur Specific [place] (1.001-1.035) Urine Protein (Negative) Urine Glucose (UA) (Negative) Urine Ketones (Negative) Urine Blood (Negative) Urine Nitrite (Negative) Urine Bilirubin (Negative) Urine Urobilinogen (<2.0) mg/dL Ur Leukocyte Esterase (Negative) 11/26/23 11/26/23 Range/Units 16:09 18:10 WBC (3.8-10.6) k/uL RBC (4.30-5.90) m/uL Hgb (13.0-17.5) gm/dL Hct (39.0-53.0) % MCV (80.0-100.0) fL MCH (25.0-35.0) pg MCHC (31.0-37.0) g/dL RDW (11.5-15.5) % Plt Count (150-450) k/uL MPV Neutrophils % % Lymphocytes % % Monocytes % % Eosinophils % % Basophils % % Neutrophils # (1.3-7.7) k/uL Lymphocytes # (1.0-4.8) k/uL Monocytes # (0-1.0) k/uL Eosinophils # (0-0.7) k/uL Basophils # (0-0.2) k/uL PT (10.0-12.5) sec INR (<1.2) APTT (22.0-30.0) sec Sodium (137-145) mmol/L Potassium (3.5-5.1) mmol/L Chloride (98-107) mmol/L Carbon Dioxide (22-30) mmol/L Anion Gap mmol/L BUN (9-20) mg/dL Creatinine (0.66-1.25) mg/dL Est GFR (CKD-EPI)AfAm (>60 ml/min/1.73 sqM) Est GFR (CKD-EPI)NonAf (>60 ml/min/1.73 sqM) Glucose (74-99) mg/dL Plasma Lactic Acid Sanjeev 1.6 (0.7-2.0) mmol/L Calcium (8.4-10.2) mg/dL Total Bilirubin (0.2-1.3) mg/dL AST (17-59) U/L ALT (4-49) U/L Alkaline Phosphatase (38-126) U/L Total Protein (6.3-8.2) g/dL Albumin (3.5-5.0) g/dL Amylase (30-110) U/L Lipase (23-300) U/L Urine Color Colorless Urine Appearance Clear (Clear) Urine pH 7.0 (5.0-8.0) Ur Specific [place] >1.050 H (1.001-1.035) Urine Protein Negative (Negative) Urine Glucose (UA) Negative (Negative) Urine Ketones Negative (Negative) Urine Blood Negative (Negative) Urine Nitrite Negative (Negative) Urine Bilirubin Negative (Negative) Urine Urobilinogen <2.0 (<2.0) mg/dL Ur Leukocyte Esterase Negative (Negative) Disposition <Katerina Nathan - Last Filed: 11/26/23 14:19> <Dilip Garcia - Last Filed: 11/26/23 15:44> Is patient prescribed a controlled substance at d/c from ED?: No <Amadou Nguyen - Last Filed: 11/27/23 05:39> Clinical Impression: Chronic pain Disposition: HOME SELF-CARE Condition: Good Instructions (If sedation given, give patient instructions): Groin Pain (ED) Additional Instructions: As we discussed, your prostate is enlarged, follow with your physician to see about PSA and possibly urology evaluation. Prescriptions: Naproxen 250 mg PO BID #24 tablet Referrals: None,Stated [Primary Care Provider] - 1-2 days Francisco Downey MD [STAFF PHYSICIAN] - 1-2 days
--- NOTE | 2023-11-26 16:15 | US ---
EXAMINATION TYPE: US scrotum with doppler. Grayscale and color Doppler Duplex imaging performed of tuan dior scrotum. DATE OF EXAM: 11/26/2023 COMPARISON: NONE CLINICAL INDICATION: Male, 63 years old with history of Testicular pain and inguinal pain; right side pain that has been constant x 1 week. No swelling or redness. EXAM MEASUREMENTS: TESTICLES: Right Testicle: 3.9 x 3.3 x 2.1 cm Left Testicle: 4.2 x 2.9 x 1.9 cm EPIDIDYMIS HEAD: Right Epididymis: 1.2 x 1.5 x 1.1 cm Left Epididymis: 0.9 x 0.6 x 1.0 cm Doppler performed to assess for testicular vascularity; good bilateral color flow and waveforms are s een. There is no evidence of testicular torsion. Presence of hydroceles: no Presence of varicoceles: no Right epididymal head cystic appearing lesion = 1.3 x 1.2 x 0.8 cm. IMPRESSION: Appropriate arterial and spectral venous waveforms to the testes. 1. No intratesticular mass. 2. No evidence for acute process.
[2023-11-26 16:17] LABS: Basophils # (A) 0.1 k/uL (0-0.2); Basophils % (A) 1 %; Eosinophils # (A) 0.2 k/uL (0-0.7); Eosinophils % (A) 2 %; HCT 45.1 % (39.0-53.0); HGB 14.4 gm/dL (13.0-17.5); Lymphocytes # (A) 3.3 k/uL (1.0-4.8); Lymphocytes % (A) 42 %; MCH 29.8 pg (25.0-35.0); Monocytes # (A) 0.4 k/uL (0-1.0); Monocytes % (A) 5 %; Neutrophils # (A) 3.8 k/uL (1.3-7.7); Neutrophils % (A) 49 %; Platelet Count 249 k/uL (150-450); RBC 4.86 m/uL (4.30-5.90); RDW 14.1 % (11.5-15.5); WBC 7.8 k/uL (3.8-10.6)
[2023-11-26] MEDS: KETOROLAC 15 MG/ML 1 ML VIAL IVP STA (16:21)
[2023-11-26 16:28] LABS: INR 0.9 (<1.2); Partial Thromboplastin Time 23.6 sec (22.0-30.0); Prothrombin Time 9.7 sec (10.0-12.5)
[2023-11-26 16:30] LABS: ALT 19 U/L (4-49); African American GFR (CKD) >90 (>60 ml/min/1.73 sqM); Amylase 58 U/L (30-110); Anion Gap 9 mmol/L; Blood Urea Nitrogen 12 mg/dL (9-20); Calcium 9.2 mg/dL (8.4-10.2); Carbon Dioxide 24 mmol/L (22-30); Chloride 107 mmol/L (98-107); Glucose 80 mg/dL (74-99); Lipase 129 U/L (23-300); Non-African American GFR(CKD) >90 (>60 ml/min/1.73 sqM); Sodium 140 mmol/L (137-145); Total Bilirubin 0.6 mg/dL (0.2-1.3)
[2023-11-26 16:52] LABS: AST 36 U/L (17-59); Alkaline Phosphatase 54 U/L (38-126); Potassium 4.4 mmol/L (3.5-5.1); Total Protein 7.9 g/dL (6.3-8.2)
[2023-11-26 16:53] LABS: Albumin 4.4 g/dL (3.5-5.0)
--- NOTE | 2023-11-26 17:34 | CT ---
EXAMINATION TYPE: CT abdomen pelvis w con CT DLP: 855.7 mGycm, Automated exposure control for dose reduction was used. DATE OF EXAM: 11/26/2023 5:25 PM COMPARISON: 11/26/2018 CLINICAL INDICATION:Male, 63 years old with history of abdominal pain; abdominal pain, liver failure TECHNIQUE: Axial CT abdomen pelvis w con;Sagittal and coronal reformats were created on a separate w orkstation. Contrast used:100 cc mL of Isovue 300 with IV Contrast, (none if empty) Oral contrast used: without Oral Contrast (none if empty) FINDINGS: LOWER CHEST: Unremarkable ABDOMEN LIVER: Smooth contour with caudate lobe hypertrophy changes. No suspicious ulcerations. No ductal dil ation. GALLBLADDER AND BILE DUCTS: Unremarkable. PANCREAS: Unremarkable. SPLEEN: Unremarkable. ADRENAL GLANDS: Unremarkable. KIDNEYS AND URETERS: No evidence of hydronephrosis or renal calculus. The ureters are unremarkable. PELVIS BLADDER: Unremarkable REPRODUCTIVE: Prostate is enlarged in size measuring 5.0 cm in transverse dimension. ABDOMEN & PELVIS STOMACH AND BOWEL: No evidence of bowel obstruction. Scattered colonic diverticula are present. PERITONEUM/RETROPERITONEUM: No evidence of pneumoperitoneum or free fluid. VASCULATURE: No evidence of aortic aneurysm. MUSCULOSKELETAL: No acute osseous abnormalities LYMPH NODES: No gross evidence for lymphadenopathy. SOFT TISSUE/ABDOMINAL WALL: Abdominal wall hernia repair anchors inferiorly. Fat-containing umbilical hernia. IMPRESSION: 1. No definitive acute abdominal process. 2. The liver as a relatively smooth contour. No suspicious observations or dilated ducts. 3. Colonic diverticulosis. 4. Prostatomegaly correlate serum PSA.
[2023-11-26] MEDS: MORPHINE SULFATE 4 MG/ML SYRINGE IV STA (18:06)
[2023-11-26 18:37] LABS: Appearance,Urine Clear (Clear); Bilirubin,Urine Negative (Negative); Blood,Urine Negative (Negative); Color,Urine Colorless; Glucose,Urine (UA) Negative (Negative); Ketones,Urine Negative (Negative); Leukocyte Esterase,Urine Negative (Negative); Nitrite,Urine Negative (Negative); Protein,Urine Negative (Negative); Urobilinogen,Urine <2.0 mg/dL (<2.0)
[2023-11-26 19:30] LABS: Specific Gravity,Urine >1.050 (1.001-1.035)
[2023-11-26 19:31] VITALS: RESP 16
[2023-11-26 20:10] VITALS: BP 126/76; PULSE 87; TEMP 98.1
== END 2023-11-26 20:03 | disposition home or self-care (01) ==
LOC: EC 13:33
DX: G89.29 Other chronic pain (principal); R10.30 Lower abdominal pain, unspecified; F17.200 Nicotine dependence, unspecified, uncomplicated
CPT/HCPCS: 36415; 80053; 82150; 83605; 83690; 85025; 85610; 85730; 81003; 93975; 76870; 74177; 99284; 96374; 96375; J2270; J1885; Q9967

== ENCOUNTER 2023-12-05 11:06 | Inpatient (IN) | payer OTHER ==
[2023-12-05 11:38] LABS: Basophils % (A) 0 %; Eosinophils # (A) 0.1 k/uL (0-0.7); Eosinophils % (A) 2 %; HCT 42.8 % (39.0-53.0); Lymphocytes # (A) 2.7 k/uL (1.0-4.8); Lymphocytes % (A) 28 %; MCH 30.2 pg (25.0-35.0); MCHC 32.7 g/dL (31.0-37.0); MCV 92.5 fL (80.0-100.0); Mean Platelet Volume 9.2; Monocytes # (A) 0.5 k/uL (0-1.0); Monocytes % (A) 5 %; Neutrophils # (A) 6.3 k/uL (1.3-7.7); Neutrophils % (A) 64 %; Platelet Count 243 k/uL (150-450); RBC 4.63 m/uL (4.30-5.90); RDW 14.3 % (11.5-15.5); WBC 9.7 k/uL (3.8-10.6)
--- NOTE | 2023-12-05 11:40 | CT ---
EXAMINATION TYPE: CODE STROKE: CT brain wo contr CT DLP: 1099.6 mGycm, Automated exposure control for dose reduction was used. DATE OF EXAM: 12/05/2023 11:34 AM COMPARISON: None CLINICAL INDICATION:Male, 63 years old with history of Neuro deficit, acute, stroke suspected, Rt jere ed numbness TECHNIQUE: Brain: Axial CT images of the brain were obtained with coronal and sagittal reformats created and rev iewed. Contrast used: None. Oral contrast used: None. FINDINGS: Brain: Extra-axial spaces: No abnormal extra-axial fluid collections. Ventricular system: Within normal limits Cerebral parenchyma: No acute intraparenchymal hemorrhage or mass effect. The tomlinson-white junction is well differentiated. Cerebellum: Unremarkable. Mass effect: No evidence of midline shift. Intracranial vasculature: Atherosclerotic calcifications of the intracranial vessels. Soft tissues: Normal. Calvarium/osseous structures: No depressed skull fracture. Paranasal sinuses and mastoid air cells: Mild scattered paranasal sinus disease. Visualized orbits: Orbital contents are intact. IMPRESSION: No acute intracranial process.
[2023-12-05 11:51] LABS: INR 0.8 (<1.2); Partial Thromboplastin Time 25.4 sec (22.0-30.0); Prothrombin Time 9.5 sec (10.0-12.5)
[2023-12-05 11:53] LABS: ALT 21 U/L (4-49); AST 26 U/L (17-59); African American GFR (CKD) >90 (>60 ml/min/1.73 sqM); Albumin 4.5 g/dL (3.5-5.0); Alkaline Phosphatase 82 U/L (38-126); Anion Gap 10 mmol/L; Blood Urea Nitrogen 11 mg/dL (9-20); Calcium 9.6 mg/dL (8.4-10.2); Carbon Dioxide 21 mmol/L (22-30); Chloride 108 mmol/L (98-107); Creatine Kinase 51 U/L (55-170); Glucose 122 mg/dL (74-99); Non-African American GFR(CKD) >90 (>60 ml/min/1.73 sqM); Potassium 4.2 mmol/L (3.5-5.1); Sodium 139 mmol/L (137-145); Total Bilirubin 0.5 mg/dL (0.2-1.3); Total Protein 7.9 g/dL (6.3-8.2)
--- NOTE | 2023-12-05 12:08 | CT ---
EXAMINATION TYPE: CT angio head neck CT DLP: 480.9 mGycm, Automated exposure control for dose reduction was used. DATE OF EXAM: 12/05/2023 11:57 AM COMPARISON: CT head same day. CLINICAL INDICATION:Male, 63 years old with history of Neuro deficit, acute, stroke suspected; PHH, R t sided weakness TECHNIQUE: Axially acquired helical CT angiogram of the head and neck was obtained with contrast. Axi al images are supplemented with 3D reconstructions and MIP images which were post-processed at an in dependent workstation. NASCET criteria used. Contrast used:65 mL of Isovue 370 with IV Contrast, Oral contrast used: None. FINDINGS: CTA HEAD: No evidence of acute intracranial hemorrhage, mass effect, or midline shift. The ventricles, sulci, a nd cisterns are unremarkable. The visualized portions of the internal carotid arteries, middle cerebral arteries, anterior cerebral arteries, and posterior cerebral arteries are patent. The basilar and vertebral arteries are patent. CTA NECK: Right Carotid System: The common carotid and external carotid arteries are patent. There is less than 25% stenosis at the c arotid bifurcation secondary to calcified/noncalcified plaque. The rest of the internal carotid arter y is patent. Left Carotid System: The common carotid and external carotid arteries are patent. There is less than 25% stenosis at the c arotid bifurcation secondary to calcified/noncalcified plaque. The rest of the internal carotid arter y is patent. Vertebral arteries are patent without evidence hemodynamically significant stenosis. There is a three-vessel aortic arch. The origins of the great vessels are patent. No evidence of hemo dynamically significant stenosis. Upper thorax: Mild centrilobular emphysema changes throughout the lungs. IMPRESSION: 1. No evidence of dissection of the cervical internal carotid arteries or vertebral arteries or any e vidence of significant stenosis at the carotid bifurcations. 2. No evidence of intracranial high-grade stenosis or intracranial aneurysm.
--- NOTE | 2023-12-05 12:31 | XR ---
EXAMINATION TYPE: XR chest 2V DATE OF EXAM: 12/05/2023 COMPARISON: None INDICATION: Numbness, pain TECHNIQUE: Frontal and lateral views of the chest are obtained. FINDINGS: The heart size is normal. The pulmonary vasculature is normal. The lungs are clear. Mild hyperinflation is present. IMPRESSION: 1. No acute pulmonary process.
--- NOTE | 2023-12-05 12:51 | ED ---
General Adult HPI - General Chief complaint: Neuro Symptoms/Deficit Stated complaint: numbness, pain Source: patient Mode of arrival: wheelchair Limitations: no limitations - History of Present Illness Initial comments: 63-year-old male presents emergency department for possible strokelike symptoms. is at bedside and provides the history. States that at 10 AM the patient had acute onset and altered mental status. He has had previous history of stroke with completely resolved symptoms. At 10 AM the patient began complaining of a headache with right upper and lower extremity numbness. She also reports to a droop to the right side of his face. Patient appeared to be more sedated. She does admit that he was recently started back on his medications. Dose was given at 9 AM for his gabapentin, Synthroid, naltrexone and Zoloft. Unsure if these medications have something to do with his current mental status. - Related Data Home Medications Medication Instructions Recorded Confirmed Naproxen 250 mg PO BID PRN 12/05/23 12/07/23 Gabapentin 300 mg PO TID 12/06/23 12/07/23 Levothyroxine Sodium [Synthroid] 50 mcg PO DAILY 12/06/23 12/07/23 Naltrexone HCl 50 mg PO DAILY 12/06/23 12/07/23 Sertraline [Zoloft] 100 mg PO HS 12/06/23 12/07/23 traZODone HCL 100 mg PO HS 12/06/23 12/07/23 [place] Carbonate 900 mg PO HS 12/07/23 12/07/23 Multivitamins, Thera [Multivitamin 1 tab PO DAILY 12/07/23 12/07/23 (formulary)] Previous Rx's Medication Instructions Recorded Acetaminophen Tab [Tylenol] 650 mg PO Q4HR PRN tab 12/07/23 Aspirin 81 mg PO DAILY #30 tab 12/07/23 Atorvastatin [Lipitor] 40 mg PO DAILY #30 tab 12/07/23 Clopidogrel [Plavix] 75 mg PO DAILY #21 tab 12/07/23 Folic Acid 1 mg PO DAILY #30 tab 12/07/23 Thiamine [Vitamin B-1] 100 mg PO DAILY #14 tab 12/07/23 Allergies Allergy/AdvReac Type Severity Reaction Status Date / Time No Known Allergies Allergy Verified 12/07/23 14:36 Review of Systems ROS Statement: Those systems with pertinent positive or pertinent negative responses have been documented in the HPI. ROS Other: All systems not noted in ROS Statement are negative. Past Medical History Past Medical History: CVA/TIA, Diabetes Mellitus, Liver Disease, Skin Disorder History of Any Multi-Drug Resistant Organisms: None Reported Past Surgical History: Hernia Repair, Orthopedic Surgery Additional Past Surgical History / Comment(s): rt arm, lt wrist. left forearm incisional ports Past Anesthesia/Blood Transfusion Reactions: No Reported Reaction Past Psychological History: Anxiety, Depression Smoking Status: Current every day smoker Past Alcohol Use History: Abuse, Daily Past Drug Use History: None Reported - Past Family History family Family Medical History: Hyperlipidemia General Exam Limitations: no limitations General appearance: lethargic Head exam: Present: atraumatic, normocephalic, normal inspection Eye exam: Present: normal appearance, PERRL, EOMI. Absent: scleral icterus, conjunctival injection, periorbital swelling ENT exam: Present: normal exam, mucous membranes moist Neck exam: Present: normal inspection. Absent: tenderness, meningismus, lymphadenopathy Respiratory exam: Present: normal lung sounds bilaterally. Absent: respiratory distress, wheezes, rales, rhonchi, stridor Cardiovascular Exam: Present: regular rate, normal rhythm, normal heart sounds. Absent: systolic murmur, diastolic murmur, rubs, gallop, clicks GI/Abdominal exam: Present: soft, normal bowel sounds. Absent: distended, tenderness, guarding, rebound, rigid Extremities exam: Present: normal inspection, full ROM, normal capillary refill. Absent: tenderness, pedal edema, joint swelling, calf tenderness Back exam: Present: normal inspection Neurological exam: Present: alert, oriented X3, CN II-XII intact Psychiatric exam: Present: normal affect, normal mood Skin exam: Present: warm, dry, intact, normal color. Absent: rash Course Vital Signs 12/05/23 12/05/23 12/05/23 11:07 11:51 13:06 Temperature 98.5 F Pulse Rate 97 84 87 Respiratory 16 18 18 Rate Blood Pressure 166/84 138/80 143/80 O2 Sat by Pulse 97 96 95 Oximetry 12/05/23 12/05/23 15:56 19:00 Temperature Pulse Rate 93 89 Respiratory 18 18 Rate Blood Pressure 150/87 146/89 O2 Sat by Pulse 95 95 Oximetry Medical Decision Making - Medical Decision Making Was pt. sent in by a medical professional or institution (BRANDIE Murphy, LPN [employer], urgent care, hospital, or correction...) When possible be specific @ -No Did you speak to anyone other than the patient for history (EMS, parent, family, police, friend...)? What history was obtained from this source @ -Spoke with the patient's ex- for history Did you review nursing and triage notes (agree or disagree)? Why? @ -I reviewed and agree with nursing and triage notes Were old charts reviewed (outside hosp., previous admission, EMS record, old EKG, old radiological studies, urgent care reports/EKG's, correction records)? Report findings @ -No old charts were reviewed Differential Diagnosis (chest pain, altered mental status, abdominal pain women, abdominal pain men, vaginal bleeding, weakness, fever, dyspnea, syncope, headache, dizziness, GI bleed, back pain, seizure, CVA, palpatations, mental health, musculoskeletal)? @ -Differential CVA Ischemic stroke, hemorrhagic stroke, brain tumor, atypical migraine, Wernicke's encephalopathy, seizure, multiple sclerosis, meningitis, encephalitis, hypoglycemia, Guillain-Nava, electrolytes disturbance, myasthenia gravis.... This is not meant to be an all-inclusive list EKG interpreted by me (3pts min.). @ -Yes and demonstrates sinus rhythm with a rate of 83. MN interval 141. QRS 98. QTc of 415. No acute ST segment elevations or depressions X-rays interpreted by me (1pt min.). @Yes and demonstrates no acute process CT interpreted by me (1pt min.). @ -Yes and demonstrates no acute process U/S interpreted by me (1pt. min.). @ -None done What testing was considered but not performed or refused? (CT, X-rays, U/S, labs)? Why? @ -None What meds were considered but not given or refused? Why? @ -TNKase was considered however patient has rapidly evolving symptoms Did you discuss the management of the patient with other professionals (professionals i.e. BRANDIE Murphy, LPN [employer], lab, RT, psych nurse, social media editor, remote sensing specialist, teacher, air defence officer, case briefer)? Give summary @ -Discussed the case with Dr. Wang Was smoking cessation discussed for >3mins.? @ -No Was critical care preformed (if so, how long)? @ -Yes, 35 minutes for code stroke activation Were there social determinants of health that impacted care today? How? (Homelessness, low income, unemployed, alcoholism, drug addiction, transportation, low edu. Level, literacy, decrease access to med. care, longterm, rehab)? @ -No Was there de-escalation of care discussed even if they declined (Discuss DNR or withdrawal of care, Hospice)? DNR status @ -No What co-morbidities impacted this encounter? (DM, HTN, Smoking, COPD, CAD, Cancer, CVA, ARF, Chemo, Hep., AIDS, mental health diagnosis, sleep apnea, morbid obesity)? @ -Psychiatric history, previous CVA Was patient admitted / discharged? Hospital course, mention meds given and route, prescriptions, significant lab abnormalities, going to OR and other pertinent info. @ -Upon arrival patient was seen and evaluated in room 4. History is obtained from patient's as patient does not provide much history. Code stroke is activated. Patient does have subjective weakness in his upper and lower extremity. NIH is 5. He does go for CT and CTA. Chest x-ray was performed. Patient does have resolution of his symptoms. He was given an aspirin. Recommended admission for neurology consultation for which the patient was agreeable. Spoke with Dr. Dewey for admission Undiagnosed new problem with uncertain prognosis? @ -Yes Drug Therapy requiring intensive monitoring for toxicity (Heparin, Nitro, Insulin, Cardizem)? @ -No Were any procedures done? @ -No Diagnosis/symptom? @ -Acute right-sided paresthesias, acute encephalopathyimproved, possible TIA Acute, or Chronic, or Acute on Chronic? @ -Acute Uncomplicated (without systemic symptoms) or Complicated (systemic symptoms)? @ -Complicated Side effects of treatment? @ -No Exacerbation, Progression, or Severe Exacerbation? @ -No Poses a threat to life or bodily function? How? (Chest pain, USA, PA, pneumonia, PE, COPD, DKA, ARF, appy, cholecystitis, CVA, Diverticulitis, Homicidal, Suicidal, threat to staff... and all critical care pts) @ -Yes as patient presents with possible signs of stroke - Lab Data Result diagrams: 12/06/23 09:29 12/06/23 09:29 Lab Results 12/05/23 12/05/23 12/05/23 Range/Units 11:28 11:28 11:28 WBC 9.7 (3.8-10.6) k/uL RBC 4.63 (4.30-5.90) m/uL Hgb 14.0 (13.0-17.5) gm/dL Hct 42.8 (39.0-53.0) % MCV 92.5 (80.0-100.0) fL MCH 30.2 (25.0-35.0) pg MCHC 32.7 (31.0-37.0) g/dL RDW 14.3 (11.5-15.5) % Plt Count 243 (150-450) k/uL MPV 9.2 Neutrophils % 64 % Lymphocytes % 28 % Monocytes % 5 % Eosinophils % 2 % Basophils % 0 % Neutrophils # 6.3 (1.3-7.7) k/uL Lymphocytes # 2.7 (1.0-4.8) k/uL Monocytes # 0.5 (0-1.0) k/uL Eosinophils # 0.1 (0-0.7) k/uL Basophils # 0.0 (0-0.2) k/uL PT 9.5 L (10.0-12.5) sec INR 0.8 (<1.2) APTT 25.4 (22.0-30.0) sec Sodium 139 (137-145) mmol/L Potassium 4.2 (3.5-5.1) mmol/L Chloride 108 H (98-107) mmol/L Carbon Dioxide 21 L (22-30) mmol/L Anion Gap 10 mmol/L BUN 11 (9-20) mg/dL Creatinine 0.46 L (0.66-1.25) mg/dL Est GFR (CKD-EPI)AfAm >90 (>60 ml/min/1.73 sqM) Est GFR (CKD-EPI)NonAf >90 (>60 ml/min/1.73 sqM) Glucose 122 H (74-99) mg/dL Calcium 9.6 (8.4-10.2) mg/dL Total Bilirubin 0.5 (0.2-1.3) mg/dL AST 26 (17-59) U/L ALT 21 (4-49) U/L Alkaline Phosphatase 82 (38-126) U/L Creatine Kinase 51 L (55-170) U/L Troponin I (0.000-0.034) ng/mL Total Protein 7.9 (6.3-8.2) g/dL Albumin 4.5 (3.5-5.0) g/dL PSA Screen (0.000-4.000) ng/mL TSH 1.350 (0.465-4.680) mIU/L 12/05/23 12/05/23 Range/Units 11:28 11:28 WBC (3.8-10.6) k/uL RBC (4.30-5.90) m/uL Hgb (13.0-17.5) gm/dL Hct (39.0-53.0) % MCV (80.0-100.0) fL MCH (25.0-35.0) pg MCHC (31.0-37.0) g/dL RDW (11.5-15.5) % Plt Count (150-450) k/uL MPV Neutrophils % % Lymphocytes % % Monocytes % % Eosinophils % % Basophils % % Neutrophils # (1.3-7.7) k/uL Lymphocytes # (1.0-4.8) k/uL Monocytes # (0-1.0) k/uL Eosinophils # (0-0.7) k/uL Basophils # (0-0.2) k/uL PT (10.0-12.5) sec INR (<1.2) APTT (22.0-30.0) sec Sodium (137-145) mmol/L Potassium (3.5-5.1) mmol/L Chloride (98-107) mmol/L Carbon Dioxide (22-30) mmol/L Anion Gap mmol/L BUN (9-20) mg/dL Creatinine (0.66-1.25) mg/dL Est GFR (CKD-EPI)AfAm (>60 ml/min/1.73 sqM) Est GFR (CKD-EPI)NonAf (>60 ml/min/1.73 sqM) Glucose (74-99) mg/dL Calcium (8.4-10.2) mg/dL Total Bilirubin (0.2-1.3) mg/dL AST (17-59) U/L ALT (4-49) U/L Alkaline Phosphatase (38-126) U/L Creatine Kinase (55-170) U/L Troponin I <0.012 (0.000-0.034) ng/mL Total Protein (6.3-8.2) g/dL Albumin (3.5-5.0) g/dL PSA Screen 0.554 (0.000-4.000) ng/mL TSH (0.465-4.680) mIU/L Disposition Clinical Impression: Right sided numbness, Cerebrovascular accident (CVA) Disposition: ADMITTED IP TO THIS [facility] Condition: Good Is patient prescribed a controlled substance at d/c from ED?: No Time of Disposition: 13:29 Decision to Admit Reason: Admit from EC Decision Date: 12/05/23 Decision Time: 13:29
[2023-12-05] MEDS ORDERED: NALOXONE 0.4 MG/ML 1 ML VIAL IV PRN (13:29)
[2023-12-05] MEDS: ASPIRIN 325 MG TAB PO STA (13:54)
[2023-12-05] MEDS: ATORVASTATIN 40 MG TAB PO SCH (13:54)
[2023-12-05] MEDS ORDERED: traZODone HCL 50 MG TAB PO PRN (18:24)
--- NOTE | 2023-12-05 18:34 | P.HPIM ---
History of Present Illness H&P Date: 12/05/23 Chief Complaint: Confusion, altered mental status 63-year-old man with medical history of multiple CVAs/TIAs, major depressive disorder with suicidal ideation and history of multiple suicide attempts, alcohol abuse disorder with recent incarceration presented for evaluation of episode of confusion, altered mental status with his . Patient's provides majority of history as patient is a poor historian. My understanding, patient was recently incarcerated until the end of October, after which she was sent to a senior care house. He was discharged from his senior care house today to the care of his , and upon going to [employer] to get lunch, patient was noted to have an episode of confusion, headache. Patient was unable to tell his of the symptoms that were going on and therefore they presented to the emergency room for further evaluation. Later on, patient endorsed numbness of the left side of his body with weakness of the left side of his body, as well as headache. Review of systems is also positive for chronic pain in the pelvic area related to his history of inguinal hernias with mesh placement. Otherwise negative for fevers, chills, nausea, vomiting. In the emergency room, patient was afebrile, 166/84, heart rate 97, 97% on room air. CBC was unremarkable. Basic metabolic panel showed chloride of 108, CO2 of 21. Liver function tests are unremarkable. TSH was 1.35. PSA was 0.55. Coags were unremarkable. Brain CT showed no acute intracranial process. CT angiography showed no evidence of dissection of the cervical internal carotid arteries or vertebral arteries or any evidence of significant stenosis in the carotid laminations. EKG showed normal sinus rhythm with normal axis. Chest x- ray showed clear parenchyma bilaterally, normal-sized lungs, no acute process. All Systems reviewed and pertinent positives and negatives noted in HPI, all other symptoms are negative Gen: In NAD, non-toxic HEENT: normocephalic, atraumatic, hearing acuity is intant, mucous membranes moist CVS: perfusing all extremities well, no pitting edema, Respiratory: symmetric chest expansion, no accessory muscle use, GI: soft, NTTP, ND, : no suprapubic tenderness, no CVA tenderness MSK/Derm: no rashes, cyanosis Neuro: CN II-XII intact, there is mild left-sided motor weakness in both upper and lower extremity, reflexes are 1+ throughout Psych: cooperative, euthymic mood, judgment and insight is intact Labs and imaging as above Assessment/plan: Left-sided weakness Headache History of CVA/TIA -Admit patient to observation with telemetry -[place] level was ordered -Lipid panel, A1c was ordered -MRI of the brain was ordered -Echo was ordered -Aspirin, statin -Neurology was consulted -Tylenol as needed for headache Major depressive disorder with suicidal ideation Alcohol abuse disorder with recent incarceration -Psychiatry was consulted -Thiamine, multivitamin, folic acid were ordered -Ongoing cessation recommended -Sertraline was resumed, lithium is on hold Hypothyroidism -Resume levothyroxine Patient is full code Past Medical History Past Medical History: CVA/TIA, Diabetes Mellitus, Liver Disease, Skin Disorder History of Any Multi-Drug Resistant Organisms: None Reported Past Surgical History: Hernia Repair, Orthopedic Surgery Additional Past Surgical History / Comment(s): rt arm, lt wrist. left forearm incisional ports Past Anesthesia/Blood Transfusion Reactions: No Reported Reaction Past Psychological History: Anxiety, Depression Smoking Status: Current every day smoker Past Alcohol Use History: Abuse, Daily Past Drug Use History: None Reported - Past Family History family Family Medical History: Hyperlipidemia Medications and Allergies Home Medications Medication Instructions Recorded Confirmed Type Naproxen 250 mg PO BID PRN 12/05/23 12/05/23 History Allergies Allergy/AdvReac Type Severity Reaction Status Date / Time No Known Allergies Allergy Verified 12/05/23 13:33 Physical Exam Osteopathic Statement: *. No significant issues noted on an osteopathic structural exam other than those noted in the History and Physical/Consult. Vitals: Vital Signs Temp Pulse Resp BP Pulse Ox 12/05/23 15:56 93 18 150/87 95 12/05/23 13:06 87 18 143/80 95 12/05/23 11:51 84 18 138/80 96 12/05/23 11:07 98.5 F 97 16 166/84 97 Intake and Output 12/05/23 12/05/23 12/05/23 06:59 14:59 22:59 Other: Weight 81.647 kg Results CBC & Chem 7: 12/05/23 11:28 12/05/23 11:28 Labs: Abnormal Lab Results - Last 24 Hours (Table) 12/05/23 12/05/23 Range/Units 11:28 11:28 PT 9.5 L (10.0-12.5) sec Chloride 108 H (98-107) mmol/L Carbon Dioxide 21 L (22-30) mmol/L Creatinine 0.46 L (0.66-1.25) mg/dL Glucose 122 H (74-99) mg/dL Creatine Kinase 51 L (55-170) U/L
[2023-12-05] MEDS: ACETAMINOPHEN TAB 325 MG TAB PO PRN (20:20)
[2023-12-06] MEDS: LEVOTHYROXINE 50 MCG TAB PO SCH (06:08)
[2023-12-06] MEDS ORDERED: ASPIRIN 325 MG TAB PO SCH (09:00)
[2023-12-06] MEDS: ASPIRIN 81 MG PO SCH (09:04)
[2023-12-06] MEDS: MULTIVITAMINS, THERA 1 EACH TAB PO SCH (09:04)
[2023-12-06] MEDS: SERTRALINE 50 MG TAB PO SCH (09:04)
[2023-12-06] MEDS: FOLIC ACID 1 MG TAB PO SCH (09:05)
[2023-12-06] MEDS: THIAMINE 100 MG TAB PO SCH (09:05)
[2023-12-06 10:44] LABS: Basophils % (A) 1 %; Eosinophils # (A) 0.1 k/uL (0-0.7); Eosinophils % (A) 1 %; HCT 42.3 % (39.0-53.0); HGB 13.5 gm/dL (13.0-17.5); Lymphocytes # (A) 2.6 k/uL (1.0-4.8); Lymphocytes % (A) 32 %; MCH 29.7 pg (25.0-35.0); MCHC 31.8 g/dL (31.0-37.0); MCV 93.4 fL (80.0-100.0); Mean Platelet Volume 9.2; Monocytes # (A) 0.4 k/uL (0-1.0); Monocytes % (A) 5 %; Neutrophils # (A) 4.8 k/uL (1.3-7.7); Neutrophils % (A) 60 %; Platelet Count 235 k/uL (150-450); RBC 4.53 m/uL (4.30-5.90); WBC 8.1 k/uL (3.8-10.6)
--- NOTE | 2023-12-06 10:53 | MR ---
EXAMINATION TYPE: MR brain wo con DATE OF EXAM: 12/06/2023 10:45 AM CLINICAL INDICATION:Male, 63 years old with history of stroke; PHH, Acute right sided numbness. COMPARISON: 12/05/2023. TECHNIQUE: Multi planar, multi sequence imaging was performed through the brain including: T1, T2, In version recovery, Diffusion weighted imaging, and gradient echo imaging. No gadolinium was given. FINDINGS: Mild cerebral atrophy with proportional dilation of ventricular system. Scattered foci of high T2 s ignal intensity are seen within the periventricular white matter. Midline structures show no abnormal ity. Diffusion-weighted imaging shows no evidence of restricted diffusion. The susceptibility weighte d images do not reveal any evidence for micro-hemorrhage. The bone marrow signal is within normal limits. Paranasal sinuses and mastoid air cells: No significant paranasal sinus disease. Visualized orbits: Orbital contents are intact. IMPRESSION: 1. No evidence of intracranial mass or acute/subacute infarct. 2. Nonspecific white matter changes, likely secondary to small vessel ischemic disease.
[2023-12-06 11:37] LABS: African American GFR (CKD) >90 (>60 ml/min/1.73 sqM); Anion Gap 8 mmol/L; Blood Urea Nitrogen 13 mg/dL (9-20); Calcium 9.7 mg/dL (8.4-10.2); Carbon Dioxide 25 mmol/L (22-30); Chloride 106 mmol/L (98-107); Glucose 86 mg/dL (74-99); Non-African American GFR(CKD) >90 (>60 ml/min/1.73 sqM); Potassium 4.4 mmol/L (3.5-5.1); Sodium 139 mmol/L (137-145)
--- NOTE | 2023-12-06 13:09 | P.PN ---
Subjective Progress Note Date: 12/06/23 No new complaints today. Brain MRI was negative. EEG pending Gen: In NAD, non-toxic HEENT: normocephalic, atraumatic, hearing acuity is intant, mucous membranes moist CVS: perfusing all extremities well, no pitting edema, Respiratory: symmetric chest expansion, no accessory muscle use, GI: soft, NTTP, ND, : no suprapubic tenderness, no CVA tenderness MSK/Derm: no rashes, cyanosis Neuro: CN II-XII intact, there is mild left-sided motor weakness in both upper and lower extremity, reflexes are 1+ throughout Psych: cooperative, euthymic mood, judgment and insight is intact Hospital Course: 63-year-old man with medical history of multiple CVAs/TIAs, major depressive disorder with suicidal ideation and history of multiple suicide attempts, alcohol abuse disorder with recent incarceration presented for evaluation of episode of confusion, altered mental status with his . In the emergency room, patient was afebrile, 166/84, heart rate 97, 97% on room air. CBC was unremarkable. Basic metabolic panel showed chloride of 108, CO2 of 21. Liver function tests are unremarkable. TSH was 1.35. PSA was 0.55. Coags were unremarkable. Brain CT showed no acute intracranial process. CT angiography showed no evidence of dissection of the cervical internal carotid arteries or vertebral arteries or any evidence of significant stenosis in the carotid laminations. EKG showed normal sinus rhythm with normal axis. Chest x-ray showed clear parenchyma bilaterally, normal-sized lungs, no acute process. Assessment/plan: Left-sided weakness Headache History of CVA/TIA -Admit patient to observation with telemetry -[place] level was ordered -Lipid panel, A1c was ordered -MRI of the brain was reviewed as above -Echo was ordered, pending -Aspirin, statin -Neurology was consulted, ordered EEG today -Tylenol as needed for headache Major depressive disorder with suicidal ideation Alcohol abuse disorder with recent incarceration -Psychiatry was consulted -Thiamine, multivitamin, folic acid were ordered -Ongoing cessation recommended -Sertraline was resumed, lithium is on hold Hypothyroidism -Resume levothyroxine Patient is full code Objective - Vital Signs Vital signs: Vital Signs Temp 98.0 F 12/06/23 08:00 Pulse 91 12/06/23 08:00 Resp 17 12/06/23 08:00 BP 146/79 12/06/23 08:00 Pulse Ox 95 12/06/23 08:00 FiO2 Intake & Output 12/05/23 12/06/23 12/06/23 18:59 06:59 18:59 Intake Total 10 838 Balance 10 838 Weight 81.647 kg 81.647 kg Intake: IV 10 0.9 10 Oral 838 Other: Voiding Method Toilet Toilet # Voids 1 - Labs CBC & Chem 7: 12/06/23 09:29 12/06/23 09:29 Labs: Abnormal Lab Results - Last 24 Hours (Table) 12/06/23 Range/Units 09:29 Creatinine 0.50 L (0.66-1.25) mg/dL
[2023-12-06 13:39] LABS: Lithium <0.2 mmol/L
--- NOTE | 2023-12-06 14:09 | P.CN ---
Psychiatric Consult - . Consult date: 12/06/23 Consult:: IDENTIFYING DATA AND REASON FOR CONSULT: Mr. Allison is 63-year-old male brought to the emergency department by his ex- who is also his legal guardian. The hospitalist submitted the psychiatric consult because he has history of suicidal ideation and major depressive disorder. PERTINENT PSYCHIATRIC HISTORY: Review of the medical record and interviewed his . He was off the medicine unit for the medical's test. He is known to this fiction and nonfiction prose writer from a prior admission to the psychiatric unit. He has a history of an alcohol use disorder, depression and multiple suicide attempts. His said that he was incarcerated in July for his third drunk driving offense. He was released from [facility] in October to the [facility] where he currently resides. He can remain in [facility] for the remainder of this year unless he violates the terms of his probation in which case he may be imprisoned. She said that they officially last month but she remains involved and is currently his legal guardian. She takes some on day trips from daycare and house. This morning while her at a local restaurant he complains of numbness and tingling in his left hand. She says she saw that his face began to droop and he began to complain of numbness and tingling in his left leg. She said that she had witnessed him having similar symptoms in the past that were suggestive of a stroke or a TIA. She immediately brought him to the ED for evaluation. He is having difficulty adjusting to the restrictions that are present at the [facility]. These include curfew and frequent drug and alcohol testing. The only difficulty occurred a week or so ago when he told her that he is considering buying fentanyl when he is on leave in order to overdose. She immediately alerted the transmission maintenance supervisor at the current house and he was not allowed to leave the home for the weekend. She reviewed his long and complicated psychiatric history. He has had multiple and serious suicide attempts and frequent bouts of depression. He also has a long history of alcohol use disorder that she believes were enabled by his family. After he told her about these suicidal thoughts she took him to [facility] where he received emergency evaluation and placed back on psychotropic medications that include naltrexone 50 mg daily, lithium carbonate 900 mg at bedtime, gabapentin 300 mg 3 times daily, trazodone 100 mg at bedtime, sertraline 100 mg H and his levothyroxine 50 mcg daily. He is scheduled to meet with a psychiatrist again this Monday and will continue with outpatient individual therapy. Will attempt to interview the patient at a later date. Meanwhile unless it is medically contraindicated recommend to continue his lithium 900 mg at bedtime as well as the naltrexone 50 mg daily. Will follow. 12/06/23 13:59
--- NOTE | 2023-12-06 14:24 | P.CNNES ---
History of Present Illness Consult date: 12/06/23 Requesting physician: Angelic Pablo Reason for Consult: right sided numbness with acute encephalopathy, possible cva History of Present Illness: This is a 63-year-old gentleman with history of multiple strokes without any residual deficit, multiple TIAs, alcohol abuse, tobacco and medication noncompliance presents to the emergency department because of right-sided weakness confusion. History is obtained from the patient was at bedside. According to the it seems he had right-sided weakness over the upper and lower extremity, facial weakness and confusion and he had it for more than 4-1/2 hours to 6 hours then he was convinced to come to the hospital. He was also confused. Was in agreement to come to the hospital yesterday. It seems that he had multiple strokes in the past and the last stroke was about 3 years ago and he had weakness on the right side without any residual deficit. He also had m ultiple TIAs. He is supposed to be on aspirin Lipitor but is not compliant taking medication. He also has a history of hypertension and he is not compliant taking medication. He has diabetes which is controlled. He smokes 2 packs a day. He drinks heavy alcohol use and the last drink was in July 27, 2023 and he is he was encouraged needed and so he is on probation. No history of seizures. Currently he is feels he is doing better. Has significant psych issues such as bipolar, schizophrenia according to . Some of the workup during this hospital visit consisted of: Presentation patient blood pressure is 166/84. He is afebrile. TSH is 1.350. Glucose is 122 I reviewed the rest of the lab workup [place] is less than 0.2 CT of the head is reported as no acute intracranial process. Personally reviewed the CT and agree with the report. CT angiography of the head and neck is reported as no evidence of dissection of cervical internal carotid artery or vertebral artery or any evidence of significant stenosis at the carotid bifurcation. No evidence of intracranial high-grade stenosis or intracranial aneurysm. MRI of the brain is reported as no evidence of intracranial mass or ac dalia/subacute infarct. Nonspecific white matter changes, likely secondary due to small vessel ischemic disease. Review of Systems Review of system: The 12 point system was reviewed and apparent positive and negative per HPI. Past Medical History Past Medical History: CVA/TIA, Liver Disease, Skin Disorder History of Any Multi-Drug Resistant Organisms: None Reported Past Surgical History: Hernia Repair, Orthopedic Surgery Additional Past Surgical History / Comment(s): rt arm, lt wrist. left forearm incisional ports Past Anesthesia/Blood Transfusion Reactions: No Reported Reaction Past Psychological History: Anxiety, Bipolar, Depression, Schizophrenia Additional Psychological History / Comment(s): suicidal attempt 01/06/21 cutting forearm Smoking Status: Current every day smoker Past Alcohol Use History: Abuse, Daily Past Drug Use History: None Reported Additional Drug Use History / Comment(s): Patient states he does not drink anymore - Past Family History family Family Medical History: Hyperlipidemia Medications and Allergies Home Medications Medication Instructions Recorded Confirmed Type Naproxen 250 mg PO BID PRN 12/05/23 12/05/23 History Gabapentin 300 mg PO TID 12/06/23 12/06/23 History Levothyroxine Sodium [Synthroid] 50 mcg PO DAILY 12/06/23 12/06/23 History [place] Carbonate [[place] 900 mg PO HS 12/06/23 12/06/23 History Carbonate ER] Naltrexone HCl 50 mg PO DAILY 12/06/23 12/06/23 History Sertraline [Zoloft] 100 mg PO HS 12/06/23 12/06/23 History traZODone HCL 100 mg PO HS 12/06/23 12/06/23 History Allergies Allergy/AdvReac Type Severity Reaction Status Date / Time No Known Allergies Allergy Verified 12/05/23 13:33 Physical Examination - Vital Signs Vital Signs: Vital Signs Temp Pulse Pulse Resp BP BP Pulse Ox 12/06/23 08:00 98.0 F 91 17 146/79 95 12/06/23 04:00 97.8 F 84 18 154/87 97 12/06/23 01:20 103 H 18 12/06/23 00:00 98.0 F 103 H 18 136/90 96 12/05/23 20:21 97.9 F 101 H 18 137/81 95 12/05/23 20:00 101 H 18 12/05/23 19:00 89 18 146/89 95 12/05/23 15:56 93 18 150/87 95 Intake and Output 12/05/23 12/06/23 12/06/23 22:59 06:59 14:59 Intake Total 10 838 Balance 10 838 Intake: IV 10 0.9 10 Oral 838 Other: Voiding Method Toilet Toilet Toilet # Voids 1 Weight 81.647 kg GENERAL: The patient is lying in bed and is not in acute distress. Psych: Flat affect. NEUROLOGICAL: Higher mental function: The patient is awake, alert, oriented to self, place and time. Patient is following commands. No aphasia and no neglect. Cranial nerves: The pupils are round, equal and reactive to light and accommodation. Visual manzo are full to confrontation throughout. Extraocular movement is intact no nystagmus is noted. Facial sensation is normal to touch throughout. The facial strength is normal throughout. Hearing is normal bilaterally to hand rub. Tongue is midline and moved [id number] without any difficulty. No dysarthria is noted. Shoulder shrug is normal bilaterally. Motor: The strength is left upper extremity is 4-4+ (old due to prior suicidal attempt and has scars on the left forearm). Otherwise 5 over 5 throughout. Normal tone and bulk. Cerebellum: Normal finger to nose bilaterally. Sensation: Sensation is decrease over the left upper extremity from elbow and down (old). Otherwise normal to touch throughout. Reflexes (right/left):Hyporeflexia to areflexia in distal left upper extremity. Otherwise normal throughout. Plantars are downgoing bilaterally. Results - Laboratory Findings CBC and BMP: 12/06/23 09:29 12/06/23 09:29 Abnormal Lab Findings: Abnormal Labs 12/05/23 12/05/23 12/06/23 11:28 11:28 09:29 PT 9.5 L Chloride 108 H Carbon Dioxide 21 L Creatinine 0.46 L 0.50 L Glucose 122 H Creatine Kinase 51 L Assessment and Plan Assessment: This is a 63-year-old gentleman who presents because of right-sided weakness including upper and lower as well as the face and confusion and initially he was reluctant on coming to the hospital but eventually he came. Per the ED it seems that he was having numbness that was 6 complaint. His symptoms has resolved. He has multiple strokes and TIAs without any residual deficit, heavy tobacco and alcohol use and noncompliant with medication and significant psych issue. Acute transient sided weakness and numbness with confusion is likely transient ischemic attack. MRI of the brain is unremarkable History of multiple strokes affecting the right side without any residual deficits History of multiple TIAs Alcohol use in the last alcohol use was in July 27, 2023 in which she was incarcerated and he is on probation currently. History of suicidal ideation and has as a result left upper extremity weakness History of schizophrenia History of bipolar Heavy tobacco use and he smokes 2 packs a day Medication noncompliance Plan: Patient is really resumed on aspirin 81 mg which she is supposed to be on but he is not taking the medication. He was given aspirin 325mg once in the ED. I also started the patient on Plavix 75 mg daily. Patient to be on dual antiplatelet for 21 days and after 21 days stop Plavix but continue aspirin indefinitely. He started on Lipitor 40 mg daily. I ordered routine EEG 2D echo was ordered and is pending Pending lipid panel Continue neurochecks Cardiac monitoring PT, OT and COLOR MAKING SUPERVISOR are consulted Patient was counseled medication compliance and cessation of the alcohol is positive tobacco use. Psychiatry was consulted Upon discharge recommend the patient to follow-up with a neurologist as an outpatient within 2 weeks. Will defer the rest of the medical management to primary and other specialists For DVT prophylaxis I started the patient on subcu heparin 5000 units every 12 hours Plan discussed with the patient, his is at bedside and the primary team Thank for the consultation Time with Patient: Greater than 30
[2023-12-06] MEDS: CLOPIDOGREL 75 MG TAB PO SCH (17:37)
[2023-12-06] MEDS: GABAPENTIN 300 MG CAP PO SCH (18:40)
[2023-12-06 20:09] LABS: Chol/HDL Ratio 4.45 Ratio; LDL Cholesterol,Calculated 144.2 mg/dL (0.0-131.0)
[2023-12-06] MEDS: LITHIUM CARBONATE ER 450 MG TABLET.ER PO SCH (21:22)
[2023-12-06] MEDS: HEPARIN SODIUM,PORCINE 5,000 UNIT/ML 1 ML VIAL SQ SCH (22:11)
--- NOTE | 2023-12-06 22:46 | EEG ---
ELECTROENCEPHALOGRAM REPORT CLINICAL HISTORY: This is a 63-year-old gentleman with altered mental status. The video EEG is obtained to evaluate for seizure and epileptiform discharges. RELEVANT MEDICATIONS: 1. Gabapentin. 2. [place]. 3. Trazodone. EEG TYPE: A routine 21-channel EEG with video using the 10/20 electrode placement system. DESCRIPTION: Wakefulness and brief drowsiness are obtained. During awake state, the posterior dominant rhythm consists of [id number] voltage of 10 to 10.5 hertz activity that is well modulated and well sustained. There is no physiological stage 2 sleep architecture. There is no focal slowing. There is myogenic artifact over the Fp1 lead. Interictal and ictal is none. ACTIVATION PROCEDURE: Photic stimulation did not evoke a posterior driving response. There is no abnormality during the photic stimulation. Hyperventilation is not performed. CLINICAL INTERPRETATION: This is a normal routine EEG. There is no focal slowing, epileptiform discharge, or seizure on the EEG. A normal routine EEG does not rule out underlying epilepsy. Clinical correlation is recommended. [email or web address] / MIKEN: [id number] /
[2023-12-07] MEDS: NALTREXONE HCL 50 MG TAB PO SCH (08:58)
[2023-12-07 09:16] VITALS: BP 156/85; PULSE 100; RESP 17; TEMP 98.3
--- NOTE | 2023-12-07 11:30 | P.DS ---
Providers Date of admission: 12/05/23 14:09 Expected date of discharge: 12/07/23 Attending physician: Juan Diego Dewey MD Consults: 12/05/23 13:41 Consult Physician Urgent Consulting Provider: Denton Montague Consult Reason/Comments: right sided numbness, acute encephalopathy, possible cva Do you want consulting provider notified?: Yes 12/05/23 18:33 Consult Physician Routine Consulting Provider: Osbaldo Sarmiento Consult Reason/Comments: SI, MDD Do you want consulting provider notified?: Yes Primary care physician: Stated None Hospital Course: Left-sided weakness Headache History of CVA/TIA Major depressive disorder with suicidal ideation Alcohol abuse disorder with recent incarceration Hypothyroidism Gen: In NAD, non-toxic HEENT: normocephalic, atraumatic, hearing acuity is intant, mucous membranes moist CVS: perfusing all extremities well, no pitting edema, Respiratory: symmetric chest expansion, no accessory muscle use, GI: soft, NTTP, ND, : no suprapubic tenderness, no CVA tenderness MSK/Derm: no rashes, cyanosis Neuro: CN II-XII intact, there is mild left-sided motor weakness in both upper and lower extremity, reflexes are 1+ throughout Psych: cooperative, euthymic mood, judgment and insight is intact Hospital Course: 63-year-old man with medical history of multiple CVAs/TIAs, major depressive disorder with suicidal ideation and history of multiple suicide attempts, alcohol abuse disorder with recent incarceration presented for evaluation of episode of confusion, altered mental status with his . In the emergency room, patient was afebrile, 166/84, heart rate 97, 97% on room air. CBC was unremarkable. Basic metabolic panel showed chloride of 108, CO2 of 21. Liver function tests are unremarkable. TSH was 1.35. PSA was 0.55. Coags were unremarkable. Brain CT showed no acute intracranial process. CT angiography showed no evidence of dissection of the cervical internal carotid arteries or vertebral arteries or any evidence of significant stenosis in the carotid laminations. EKG showed normal sinus rhythm with normal axis. Chest x-ray showed clear parenchyma bilaterally, normal-sized lungs, no acute process. Patient underwent workup for CVA and had negative MRI of the brain. EEG was also ordered and that was negative for seizure activity. Neurology was consulted and facilitated management of the case. Echocardiogram showed no evidence of PFO, normal ejection fraction. [place] level was subtherapeutic. TSH was within normal range. Patient was advised to follow-up with primary care physician as well as neurology as an outpatient. Psychiatry consult was appreciated as well, and patient has follow-up with psychiatrist as an outpatient. Patient was discharged on dual antiplatelet therapy for 21 days with the addition of atorvastatin. I spent 35 minutes coordinating this discharge Patient Condition at Discharge: Good Plan - Discharge Summary Discharge Rx Participant: Yes New Discharge Prescriptions: New Folic Acid 1 mg PO DAILY #30 tab Multivitamins, Thera [Multivitamin (formulary)] 1 each PO DAILY #30 tab Acetaminophen Tab [Tylenol] 650 mg PO Q4HR PRN tab PRN Reason: Fever And/ Or Pain Aspirin 81 mg PO DAILY #30 tab Atorvastatin [Lipitor] 40 mg PO DAILY #30 tab Clopidogrel [Plavix] 75 mg PO DAILY #21 tab Thiamine [Vitamin B-1] 100 mg PO DAILY #14 tab Continue Naltrexone HCl 50 mg PO DAILY Gabapentin 300 mg PO TID Naproxen 250 mg PO BID PRN PRN Reason: Pain [place] Carbonate [[place] Carbonate ER] 900 mg PO HS traZODone HCL 100 mg PO HS Sertraline [Zoloft] 100 mg PO HS Levothyroxine Sodium [Synthroid] 50 mcg PO DAILY Discharge Medication List Naproxen 250 mg PO BID PRN 12/05/23 [History] Gabapentin 300 mg PO TID 12/06/23 [History] Levothyroxine Sodium [Synthroid] 50 mcg PO DAILY 12/06/23 [History] [place] Carbonate [[place] Carbonate ER] 900 mg PO HS 12/06/23 [History] Naltrexone HCl 50 mg PO DAILY 12/06/23 [History] Sertraline [Zoloft] 100 mg PO HS 12/06/23 [History] traZODone HCL 100 mg PO HS 12/06/23 [History] Acetaminophen Tab [Tylenol] 650 mg PO Q4HR PRN tab 12/07/23 [Rx] Aspirin 81 mg PO DAILY #30 tab 12/07/23 [Rx] Atorvastatin [Lipitor] 40 mg PO DAILY #30 tab 12/07/23 [Rx] Clopidogrel [Plavix] 75 mg PO DAILY #21 tab 12/07/23 [Rx] Folic Acid 1 mg PO DAILY #30 tab 12/07/23 [Rx] Multivitamins, Thera [Multivitamin (formulary)] 1 each PO DAILY #30 tab 12/07/23 [Rx] Thiamine [Vitamin B-1] 100 mg PO DAILY #14 tab 12/07/23 [Rx] Follow up Appointment(s)/Referral(s): George Maciel MD [Medical Doctor] - 1 Week None,Stated [Primary Care Provider] - 1-2 days Mahin Kee DO [STAFF PHYSICIAN] - 1 Week Patient Instructions/Handouts: Stroke (DC) Activity/Diet/Wound Care/Special Instructions: Please follow up with neurology for repeated episodes of right sided weakness, headache, confusion. Discharge/Stand Alone Forms: Area PCPs Discharge Disposition: HOME SELF-CARE
--- NOTE | 2023-12-07 12:49 | CA ---
Transthoracic Echo Report Name: Javier Allison Age: 63 Gender: M : 1960 Exam Date: 12/06/2023 15:08 Exam Location: [facility] Ht (in): 71 Wt (lb): 180 Ordering Physician: Denton Montague MD Attending/Referring Phys: Coroner Technician Anita Constantino RDCS Procedure CPT: Indications: stroke Cardiac Hx: Technical Quality: Good Contrast 1: Agitated Saline Total Dose (mL): Contrast 2: Total Dose (mL): MEASUREMENTS (Male / Female) Normal Values 2D ECHO LV Diastolic Diameter PLAX 5.3 cm 4.2 - 5.9 / 3.9 - 5.3 cm LV Systolic Diameter PLAX 4.5 cm IVS Diastolic Thickness 1.0 cm 0.6 - 1.0 / 0.6 - 0.9 cm LVPW Diastolic Thickness 1.0 cm 0.6 - 1.0 / 0.6 - 0.9 cm LV Relative Wall Thickness 0.4 RV Internal Dim ED PLAX 2.0 cm LA Systolic Diameter LX 3.3 cm 3.0 - 4.0 / 2.7 - 3.8 cm LV Diastolic Volume MOD BP 70.8 cm??? 67 - 155 / 56 - 104 cm??? LV Systolic Volume MOD BP 34.1 cm??? 22 - 58 / 19 - 49 cm??? LV Ejection Fraction MOD BP 51.8 % >= 55 % LV Diastolic Volume MOD 4C 83.1 cm??? LV Systolic Volume MOD 4C 34.5 cm??? LV Ejection Fraction MOD 4C 58.4 % LV Diastolic Length 4C 7.7 cm LV Systolic Length 4C 7.0 cm LV Diastolic Volume MOD 2C 59.1 cm??? LV Systolic Volume MOD 2C 31.7 cm??? LV Ejection Fraction MOD 2C 46.3 % LV Diastolic Length 2C 7.4 cm LV Systolic Length 2C 6.5 cm Ascending Aorta Diameter 3.7 cm M-MODE Aortic Root Diameter MM 3.5 cm LA Systolic Diameter MM 2.8 cm LA Ao Ratio MM 0.8 AV Cusp Separation MM 1.8 cm DOPPLER AV Peak Velocity 120.8 cm/s AV Peak Gradient 5.8 mmHg Mitral E Point Velocity 49.7 cm/s Mitral A Point Velocity 82.6 cm/s Mitral E to A Ratio 0.6 MV Deceleration Time 264.7 ms TR Peak Velocity 202.5 cm/s TR Peak Gradient 16.4 mmHg FINDINGS Left Ventricle Left ventricular ejection fraction is estimated at 50-55%. Mildly decreased left ventricular ejection fraction. Left ventricular cavity size normal. Right Ventricle Normal right ventricular size and function. Right ventricular systolic pressure within normal limits. Right Atrium Normal right atrial size. Negative agitated saline bubble study for right to left shunt. Left Atrium Normal left atrial size. Mitral Valve Structurally normal mitral valve. Trace mitral regurgitation. Aortic Valve Trileaflet aortic valve. No aortic valve stenosis or regurgitation. Tricuspid Valve Structurally normal tricuspid valve. Trace tricuspid regurgitation. Pulmonic Valve Structurally normal pulmonic valve. No pulmonic stenosis. Trace pulmonic regurgitation. Pericardium No thickening/calcification of the pericardium. Aorta Aorta at upper limits of normal. CONCLUSIONS Left ventricular ejection fraction 50-55% Negative bubble study Trace mitral regurgitation Trace tricuspid regurgitation Previewed by: Dr. Forrest Ballard DO (Electronically Signed) Final Date: 07 Dec 2023 12:48
== END 2023-12-07 11:19 | disposition home or self-care (01) | DRG 58 ==
LOC: EC 11:06 → 3SCARD 14:09
PROVIDERS: ADMIT Student in an Organized Health Care Education/Training Program; ATTEND Student in an Organized Health Care Education/Training Program
DX: G81.94 Hemiplegia, unspecified affecting left nondominant side (principal); F17.210 Nicotine dependence, cigarettes, uncomplicated; E03.9 Hypothyroidism, unspecified; F20.9 Schizophrenia, unspecified; F41.9 Anxiety disorder, unspecified; G89.29 Other chronic pain; I10 Essential (primary) hypertension; F10.10 Alcohol abuse, uncomplicated; R29.810 Facial weakness; R45.851 Suicidal ideations; Z65.3 Problems related to other legal circumstances; Z79.899 Other long term (current) drug therapy; Z86.73 Personal history of transient ischemic attack (TIA), and cerebral infarction without residual deficits; Z79.890 Hormone replacement therapy; Z91.51 Personal history of suicidal behavior; Z91.148 Patient's other noncompliance with medication regimen for other reason; Z28.21 Immunization not carried out because of patient refusal
CPT/HCPCS: 36415; 70450; 70496; 70498; 70551; 71046; 80048; 80053; 80061; 80178; 82550; 83036; 84443; 84484; 85025; 85610; 85730; 93005; 93306; 95816; 99291

== ENCOUNTER 2023-12-07 13:53 | Emergency (ER) | payer OTHER ==
[2023-12-07 14:10] VITALS: TEMP 98.2
[2023-12-07] MEDS ORDERED: SODIUM CHLORIDE 0.9% 1,000 ML IV STA (15:36)
--- NOTE | 2023-12-07 15:36 | ED ---
Neuro HPI - General Chief Complaint: Neuro Symptoms/Deficit Stated Complaint: Neuro Symptoms Time Seen by Provider: 12/07/23 15:33 Source: patient, RN notes reviewed, old records reviewed Mode of arrival: wheelchair Limitations: no limitations - History of Present Illness Is the patient presenting with stroke symptoms?: No -: hour(s) Initial Comments: This is a 63-year-old male after recent inpatient admission for possible CVA. Patient had some near syncopal event prior to arrival and was sent to the ER from his living facility brought in by the for worsening symptoms. All symptoms on arrival in the ER are normal patient is back to normal feels well and has no complaints Location: speech Place: home Severity: mild Quality: weak, numb Improves With: time Worsens With: none Context: sudden onset Associated Symptoms: denies other symptoms, confusion Treatments Prior to Arrival: none - Related Data Home Medications: Home Medications Medication Instructions Recorded Confirmed Naproxen 250 mg PO BID PRN 12/05/23 12/07/23 Gabapentin 300 mg PO TID 12/06/23 12/07/23 Levothyroxine Sodium [Synthroid] 50 mcg PO DAILY 12/06/23 12/07/23 Naltrexone HCl 50 mg PO DAILY 12/06/23 12/07/23 Sertraline [Zoloft] 100 mg PO HS 12/06/23 12/07/23 traZODone HCL 100 mg PO HS 12/06/23 12/07/23 [place] Carbonate 900 mg PO HS 12/07/23 12/07/23 Multivitamins, Thera [Multivitamin 1 tab PO DAILY 12/07/23 12/07/23 (formulary)] Previous Rx's Medication Instructions Recorded Acetaminophen Tab [Tylenol] 650 mg PO Q4HR PRN tab 12/07/23 Aspirin 81 mg PO DAILY #30 tab 12/07/23 Atorvastatin [Lipitor] 40 mg PO DAILY #30 tab 12/07/23 Clopidogrel [Plavix] 75 mg PO DAILY #21 tab 12/07/23 Folic Acid 1 mg PO DAILY #30 tab 12/07/23 Thiamine [Vitamin B-1] 100 mg PO DAILY #14 tab 12/07/23 Allergies/Adverse Reactions: Allergies Allergy/AdvReac Type Severity Reaction Status Date / Time No Known Allergies Allergy Verified 12/07/23 14:36 Review of Systems ROS Statement: Those systems with pertinent positive or pertinent negative responses have been documented in the HPI. ROS Other: All systems not noted in ROS Statement are negative. General Exam Limitations: no limitations General appearance: alert, in no apparent distress Head exam: Present: atraumatic, normocephalic, normal inspection Eye exam: Present: normal appearance, PERRL, EOMI. Absent: scleral icterus, conjunctival injection, periorbital swelling ENT exam: Present: normal exam, mucous membranes moist Neck exam: Present: normal inspection. Absent: tenderness, meningismus, lymphadenopathy Respiratory exam: Present: normal lung sounds bilaterally. Absent: respiratory distress, wheezes, rales, rhonchi, stridor Cardiovascular Exam: Present: regular rate, normal rhythm, normal heart sounds. Absent: systolic murmur, diastolic murmur, rubs, gallop, clicks GI/Abdominal exam: Present: soft, normal bowel sounds. Absent: distended, tenderness, guarding, rebound, rigid Extremities exam: Present: normal inspection, full ROM, normal capillary refill. Absent: tenderness, pedal edema, joint swelling, calf tenderness Back exam: Present: normal inspection Neurological exam: Present: alert, oriented X3, CN II-XII intact Psychiatric exam: Present: normal affect, normal mood Skin exam: Present: warm, dry, intact, normal color. Absent: rash Stroke MDM - Lab Data Result diagrams: 12/07/23 16:35 12/07/23 16:35 Lab Results 12/07/23 12/07/23 12/07/23 Range/Units 16:35 16:35 16:35 WBC 11.3 H (3.8-10.6) k/uL RBC 4.71 (4.30-5.90) m/uL Hgb 14.3 (13.0-17.5) gm/dL Hct 43.4 (39.0-53.0) % MCV 92.1 (80.0-100.0) fL MCH 30.3 (25.0-35.0) pg MCHC 32.9 (31.0-37.0) g/dL RDW 13.8 (11.5-15.5) % Plt Count 232 (150-450) k/uL MPV 8.6 Neutrophils % 68 % Lymphocytes % 23 % Monocytes % 6 % Eosinophils % 1 % Basophils % 0 % Neutrophils # 7.7 (1.3-7.7) k/uL Lymphocytes # 2.7 (1.0-4.8) k/uL Monocytes # 0.6 (0-1.0) k/uL Eosinophils # 0.1 (0-0.7) k/uL Basophils # 0.0 (0-0.2) k/uL PT 10.2 (10.0-12.5) sec INR 0.9 (<1.2) APTT 26.5 (22.0-30.0) sec Sodium (137-145) mmol/L Potassium (3.5-5.1) mmol/L Chloride (98-107) mmol/L Carbon Dioxide (22-30) mmol/L Anion Gap mmol/L BUN (9-20) mg/dL Creatinine (0.66-1.25) mg/dL Est GFR (CKD-EPI)AfAm (>60 ml/min/1.73 sqM) Est GFR (CKD-EPI)NonAf (>60 ml/min/1.73 sqM) Glucose (74-99) mg/dL Plasma Lactic Acid Sanjeev (0.7-2.0) mmol/L Calcium (8.4-10.2) mg/dL Phosphorus (2.5-4.5) mg/dL Magnesium (1.6-2.3) mg/dL Total Bilirubin (0.2-1.3) mg/dL AST (17-59) U/L ALT (4-49) U/L Alkaline Phosphatase (38-126) U/L Troponin I (0.000-0.034) ng/mL NT-Pro-B Natriuret Pep pg/mL Total Protein (6.3-8.2) g/dL Albumin (3.5-5.0) g/dL Urine Color Colorless Urine Appearance Clear (Clear) Urine pH 6.0 (5.0-8.0) Ur Specific [place] 1.006 (1.001-1.035) Urine Protein Negative (Negative) Urine Glucose (UA) Negative (Negative) Urine Ketones Negative (Negative) Urine Blood Negative (Negative) Urine Nitrite Negative (Negative) Urine Bilirubin Negative (Negative) Urine Urobilinogen <2.0 (<2.0) mg/dL Ur Leukocyte Esterase Negative (Negative) 12/07/23 12/07/23 12/07/23 Range/Units 16:35 16:35 16:35 WBC (3.8-10.6) k/uL RBC (4.30-5.90) m/uL Hgb (13.0-17.5) gm/dL Hct (39.0-53.0) % MCV (80.0-100.0) fL MCH (25.0-35.0) pg MCHC (31.0-37.0) g/dL RDW (11.5-15.5) % Plt Count (150-450) k/uL MPV Neutrophils % % Lymphocytes % % Monocytes % % Eosinophils % % Basophils % % Neutrophils # (1.3-7.7) k/uL Lymphocytes # (1.0-4.8) k/uL Monocytes # (0-1.0) k/uL Eosinophils # (0-0.7) k/uL Basophils # (0-0.2) k/uL PT (10.0-12.5) sec INR (<1.2) APTT (22.0-30.0) sec Sodium 138 (137-145) mmol/L Potassium 4.1 (3.5-5.1) mmol/L Chloride 105 (98-107) mmol/L Carbon Dioxide 28 (22-30) mmol/L Anion Gap 5 mmol/L BUN 13 (9-20) mg/dL Creatinine 0.56 L (0.66-1.25) mg/dL Est GFR (CKD-EPI)AfAm >90 (>60 ml/min/1.73 sqM) Est GFR (CKD-EPI)NonAf >90 (>60 ml/min/1.73 sqM) Glucose 101 H (74-99) mg/dL Plasma Lactic Acid Sanjeev 1.2 (0.7-2.0) mmol/L Calcium 9.5 (8.4-10.2) mg/dL Phosphorus 3.9 (2.5-4.5) mg/dL Magnesium 2.2 (1.6-2.3) mg/dL Total Bilirubin 0.5 (0.2-1.3) mg/dL AST 19 (17-59) U/L ALT 15 (4-49) U/L Alkaline Phosphatase 77 (38-126) U/L Troponin I <0.012 (0.000-0.034) ng/mL NT-Pro-B Natriuret Pep 74 pg/mL Total Protein 7.7 (6.3-8.2) g/dL Albumin 4.4 (3.5-5.0) g/dL Urine Color Urine Appearance (Clear) Urine pH (5.0-8.0) Ur Specific [place] (1.001-1.035) Urine Protein (Negative) Urine Glucose (UA) (Negative) Urine Ketones (Negative) Urine Blood (Negative) Urine Nitrite (Negative) Urine Bilirubin (Negative) Urine Urobilinogen (<2.0) mg/dL Ur Leukocyte Esterase (Negative) - NIH Stroke Scale 1a. Level of Consciousness: (0) alert 1b. LOC Questions: (0) answers correctly 1c. LOC Commands: (0) performs tasks correctly 2. Best Gaze: (0) normal 3. Visual: (0) no visual loss 4. Facial Palsy: (0) normal symmetrical movement 5a. Motor Arm Left: (0) no drift 5b. Motor Arm Right: (0) no drift 6a. Motor Leg Left: (0) no drift 6b. Motor Leg Right: (0) no drift 7. Limb Ataxia: (0) absent 8. Sensory: (0) normal 9. Best Language: (0) no aphasia 10. Dysarthria: (0) normal 11. Extinction/Inattention: (0) no abnormality - Thrombolytic Inclusion/Exclusion Thrombolytic Exclusion Criteria: Symptom Onset > 4.5 Hours - Core Measures AMI Core Measures Followed: No - Medical Decision Making 63-year-old male to ER for evaluation of altered mental status with headache which is resolved here in the ER near syncopal event per bystanders being his . This is initiated head for years and has no other complaints - Radiology Data Radiology results: report reviewed (CT brain negative for acute disease), image reviewed - EKG Data -: EKG Interpreted by Me (EKG is sinus tachycardia 104 ND 160 QRS 90 QTc 406) Past Medical History Past Medical History: CVA/TIA, Liver Disease, Skin Disorder History of Any Multi-Drug Resistant Organisms: None Reported Past Surgical History: Hernia Repair, Orthopedic Surgery Additional Past Surgical History / Comment(s): rt arm, lt wrist. left forearm incisional ports Past Anesthesia/Blood Transfusion Reactions: No Reported Reaction Past Psychological History: Anxiety, Bipolar, Depression, Schizophrenia Smoking Status: Current every day smoker Past Alcohol Use History: Abuse, Daily Past Drug Use History: None Reported - Past Family History family Family Medical History: Hyperlipidemia Course Vital Signs 12/07/23 12/07/23 13:59 19:39 Temperature 98.2 F Pulse Rate 122 H 71 Respiratory 18 16 Rate Blood Pressure 137/81 153/87 O2 Sat by Pulse 95 100 Oximetry - Reevaluation(s) Reevaluation #1: 12/07/23 22:01 Medical records reviewed Reevaluation #2: 12/07/23 22:02 Patient symptoms unchanged no headache chest pain shortness of breath or abdominal pain Reevaluation #3: 12/07/23 22:02 Patient is informed of results and Questions answered Reevaluation #4: Was pt. sent in by a medical professional or institution (BRANDIE Murphy, JOINERY MACHINIST, urgent care, hospital, or penitentiary...) When possible be specific @ -no Did you speak to anyone other than the patient for history (EMS, parent, family, police, friend...)? What history was obtained from this source @ -no Did you review nursing and triage notes (agree or disagree)? Why? @ -agree Are old charts reviewed (outside hosp., previous admission, EMS record, old EKG, old radiological studies, urgent care reports/EKG's, penitentiary records)? Report findings @ -yes Differential Diagnosis (chest pain, altered mental status, abdominal pain women, abdominal pain men, vaginal bleeding, weakness, fever, dyspnea, syncope, headache, dizziness, GI bleed, back pain, seizure, CVA, palpatations, mental health, musculoskeletal)? @ -prior EKG interpreted by me (3pts min.). @ -yes X-rays interpreted by me (1pt min.). @ -no CT interpreted by me (1pt min.). @ -Yes negative for acute disease U/S interpreted by me (1pt. min.). @ -no What testing was considered but not performed or refused? (CT, X-rays, U/S, labs)? Why? @ -none What meds were considered but not given or refused? Why? @ -none Did you discuss the management of the patient with other professionals (professionals i.e. BRANDIE Murphy, JOINERY MACHINIST, lab, RT, psych nurse, social work case manager, fish hatchery man, teacher, space operations officer, disability case manager)? Give summary @ -no Was smoking cessation discussed for >3mins.? @ -no Was critical care preformed (if so, how long)? @ -no Were there social determinants of health that impacted care today? How? (Homelessness, low income, unemployed, alcoholism, drug addiction, transportation, low edu. Level, literacy, decrease access to med. care, group home, rehab)? @ -none Was there de-escalation of care discussed even if they declined (Discuss DNR or withdrawal of care, Hospice)? DNR status @ -no What co-morbidities impacted this encounter? (DM, HTN, Smoking, COPD, CAD, Cancer, CVA, ARF, Chemo, Hep., AIDS, mental health diagnosis, sleep apnea, morbid obesity)? @ -none Was patient admitted / discharged? Hospital course, mention meds given and route, prescriptions, significant lab abnormalities, going to OR and other pertinent info. @ - 63-year-old male to ER for evaluation of altered mental status with headache which is resolved here in the ER near syncopal event per bystanders being his . This is initiated head for years and has no other complaints Discharge syncope near syncope with altered mental status resolved Undiagnosed new problem with uncertain prognosis? @ -no Drug Therapy requiring intensive monitoring for toxicity (Heparin, Nitro, Insulin, Cardizem)? @ -no Were any procedures done? @ -no Diagnosis/symptom? @ - Acute, or Chronic, or Acute on Chronic? @ -Acute Uncomplicated (without systemic symptoms) or Complicated (systemic symptoms)? @ -Complicated Side effects of treatment? @ -no Exacerbation, Progression, or Severe Exacerbation? @ -exacerbation Poses a threat to life or bodily function? How? (Chest pain, USA, DE, pneumonia, PE, COPD, DKA, ARF, appy, cholecystitis, CVA, Diverticulitis, Homicidal, Suicidal, threat to staff... and all critical care pts) @ -yes syncopal event Reevaluation #5: Differential Syncope: Valvular disease, hypertrophic cardiomyopathy, pulmonary embolism, tamponade, tachycardia, bradycardia, DE, hypovolemia, hemorrhage, dissection, anemia, intracranial hemorrhage, seizure, hypoglycemia, carbon monoxide poisoning, this is not meant to be an all-inclusive list. Disposition Clinical Impression: Near syncope, Mood disorder Disposition: HOME SELF-CARE Condition: Good Instructions (If sedation given, give patient instructions): Near Syncope (ED) Is patient prescribed a controlled substance at d/c from ED?: No Referrals: None,Stated [Primary Care Provider] - 1-2 days Time of Disposition: 17:00
[2023-12-07 16:41] LABS: Basophils % (A) 0 %; Eosinophils # (A) 0.1 k/uL (0-0.7); Eosinophils % (A) 1 %; HCT 43.4 % (39.0-53.0); HGB 14.3 gm/dL (13.0-17.5); Lymphocytes # (A) 2.7 k/uL (1.0-4.8); Lymphocytes % (A) 23 %; MCH 30.3 pg (25.0-35.0); MCHC 32.9 g/dL (31.0-37.0); MCV 92.1 fL (80.0-100.0); Mean Platelet Volume 8.6; Monocytes # (A) 0.6 k/uL (0-1.0); Monocytes % (A) 6 %; Neutrophils # (A) 7.7 k/uL (1.3-7.7); Neutrophils % (A) 68 %; Platelet Count 232 k/uL (150-450); RBC 4.71 m/uL (4.30-5.90); RDW 13.8 % (11.5-15.5); WBC 11.3 k/uL (3.8-10.6)
[2023-12-07 16:48] LABS: Appearance,Urine Clear (Clear); Bilirubin,Urine Negative (Negative); Blood,Urine Negative (Negative); Color,Urine Colorless; Glucose,Urine (UA) Negative (Negative); Ketones,Urine Negative (Negative); Leukocyte Esterase,Urine Negative (Negative); Nitrite,Urine Negative (Negative); Protein,Urine Negative (Negative); Specific Gravity,Urine 1.006 (1.001-1.035); Urobilinogen,Urine <2.0 mg/dL (<2.0)
[2023-12-07 16:51] LABS: ALT 15 U/L (4-49); AST 19 U/L (17-59); African American GFR (CKD) >90 (>60 ml/min/1.73 sqM); Albumin 4.4 g/dL (3.5-5.0); Alkaline Phosphatase 77 U/L (38-126); Anion Gap 5 mmol/L; Blood Urea Nitrogen 13 mg/dL (9-20); Calcium 9.5 mg/dL (8.4-10.2); Carbon Dioxide 28 mmol/L (22-30); Chloride 105 mmol/L (98-107); Glucose 101 mg/dL (74-99); Magnesium 2.2 mg/dL (1.6-2.3); Non-African American GFR(CKD) >90 (>60 ml/min/1.73 sqM); Phosphorus 3.9 mg/dL (2.5-4.5); Potassium 4.1 mmol/L (3.5-5.1); Sodium 138 mmol/L (137-145); Total Bilirubin 0.5 mg/dL (0.2-1.3); Total Protein 7.7 g/dL (6.3-8.2)
[2023-12-07 16:53] LABS: INR 0.9 (<1.2); Partial Thromboplastin Time 26.5 sec (22.0-30.0); Prothrombin Time 10.2 sec (10.0-12.5)
[2023-12-07 16:59] LABS: NT-Pro-B-Type Natriuretic Pept 74 pg/mL
--- NOTE | 2023-12-07 18:24 | CT ---
EXAMINATION TYPE: CT brain wo con CT DLP: 1201.6 mGycm, Automated exposure control for dose reduction was used. DATE OF EXAM: 12/07/2023 5:59 PM COMPARISON: 12/05/2023. CLINICAL INDICATION:Male, 63 years old with history of weakness, weakness and ams TECHNIQUE: Brain: Axial CT images of the brain were obtained with coronal and sagittal reformats created and rev iewed. Contrast used: None. Oral contrast used: None. FINDINGS: Brain: Extra-axial spaces: No abnormal extra-axial fluid collections. Ventricular system: Within normal limits Cerebral parenchyma: No acute intraparenchymal hemorrhage or mass effect. The tomlinson-white junction is well differentiated. Cerebellum: Unremarkable. Mass effect: No evidence of midline shift. Intracranial vasculature: Atherosclerotic calcifications of the intracranial vessels. Soft tissues: Normal. Calvarium/osseous structures: No depressed skull fracture. Paranasal sinuses and mastoid air cells: Mild scattered paranasal sinus disease. Visualized orbits: Orbital contents are intact. IMPRESSION: No acute intracranial process.
[2023-12-07 20:00] VITALS: BP 153/87; PULSE 71; RESP 16
== END 2023-12-07 19:44 | disposition home or self-care (01) ==
LOC: EC 13:53
DX: R55 Syncope and collapse (principal); F39 Unspecified mood [affective] disorder; F17.200 Nicotine dependence, unspecified, uncomplicated; Z86.73 Personal history of transient ischemic attack (TIA), and cerebral infarction without residual deficits
CPT/HCPCS: 36415; 70450; 80053; 81003; 83605; 83735; 83880; 84100; 84484; 85025; 85610; 85730; 93005; 99284

== ENCOUNTER → 2024-02-29 | Outpatient (CLI) | payer OTHER | END | disposition home or self-care (01) | LOC: LAB 12:00 | PROVIDERS: ATTEND Nurse Practitioner | DX: I49.9 Cardiac arrhythmia, unspecified (principal); E78.2 Mixed hyperlipidemia; E07.9 Disorder of thyroid, unspecified; Z79.899 Other long term (current) drug therapy | CPT/HCPCS: 82306; 82607; 83735; 84439; 84443 ==

== ENCOUNTER 2024-03-12 08:51 | Day surgery (SDC) | payer OTHER ==
[2024-03-12] MEDS: SODIUM CHLORIDE 0.9% 500 ML 500 ML IV ONE (09:24)
[2024-03-12 09:41] VITALS: TEMP 98.6
[2024-03-12] MEDS ORDERED: fentaNYL (PF) 50 MCG/ML 2 ML AMP ONE (09:57)
[2024-03-12] MEDS: BENZOCAINE SPRAY 1 CAN MUCOUS MEM ONE (10:00)
[2024-03-12] MEDS: MIDAZOLAM 2 MG/2 ML VIAL IVP ONE (10:04)
[2024-03-12] MEDS: fentaNYL (PF) 50 MCG/1 ML VIAL IVP ONE (10:04)
[2024-03-12 10:10] VITALS: RESP 16
--- NOTE | 2024-03-12 11:39 | ECHOT ---
TRANSESOPHAGEAL ECHOCARDIOGRAM INDICATION: Recurrent CVAs, rule out cardiac source of thromboembolic phenomenon. PROCEDURE NOTE: After obtaining informed consent, transesophageal echocardiogram is performed in left lateral position using an Omniplane probe. Local and IV sedation were obtained with xylocaine spray, Versed, and fentanyl. The patient tolerated the procedure well without any obvious immediate complications. Total sedation time was 10 minutes. FINDINGS: 1. There is no intracardiac thrombus within the left atrial appendage, left atrium, right atrium, or right ventricle. 2. Left ventricle has normal size and systolic function. 3. Interatrial septum, there is no evidence of [id number] shunt by color-flow Doppler or [id number]-sv-[id number] shunt by agitated saline contrast study. 4. Mitral valve is anatomically normal. There is mild mitral regurgitation noted. There is mild tricuspid regurgitation noted. Aortic valve is a 3-leaflet valve. There is an echodense mobile lesion attached to the ventricular surface of the right coronary cusp. 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 CONCLUSION: 1. No intracardiac thrombus. 2. No intracardiac shunting. 3. Normal LV systolic function. 4. Mass lesion over the right coronary cusp. PLAN: I am going to get a cardiac MRI done to better define the lesion noted on the right coronary cusp and if necessary, send him to cardiothoracic surgeon. Next, with agitated saline contrast study, we saw some bubbles crossed after 10 cardiac cycles and is of no clinical significance. MMODL / IJN: [id number] /
[2024-03-12 15:44] VITALS: BP 135/63; PULSE 69
== END 2024-03-12 11:47 | disposition home or self-care (01) ==
LOC: CATHCVL 08:51
PROVIDERS: ATTEND Internal Medicine Cardiovascular Disease
DX: I08.1 Rheumatic disorders of both mitral and tricuspid valves
CPT/HCPCS: 93312; 93320; 93325

== ENCOUNTER → 2024-03-13 | Outpatient (CLI) | payer OTHER ==
--- NOTE | 2024-03-13 08:09 | US ---
EXAMINATION TYPE: US liver DATE OF EXAM: 03/13/2024 COMPARISON: NONE CLINICAL INDICATION: Male, 63 years old with history of K70.30 ALCOHOLIC CIRRHOSIS OF LIVER WITHOUT A SCITES; known cirrhosis, no symptoms currently TECHNIQUE: Multiple sonographic images of the right upper quadrant are obtained. FINDINGS: EXAM MEASUREMENTS: Liver Length: 16.4 cm Gallbladder Wall: 0.2 cm CBD: 0.5 cm Right Kidney: 11.2 x 5.4 x 5.4 cm Pancreas: wnl Liver: Relatively homogeneous appearance. No focal lesion. Gallbladder: wnl Evidence for sonographic Graves's sign: no CBD: wnl Right Kidney: tiny exophytic mid pole cyst = 0.6 x 0.7 x 0.8cm. No hydronephrosis. IMPRESSION: No sonographic evidence for hepatoma. Relatively homogeneous appearance of the liver at this time. No gallstones or biliary ductal dilatation.
== END | disposition home or self-care (01) ==
LOC: RADUSWWP 06:52
PROVIDERS: ATTEND Internal Medicine Gastroenterology
DX: K70.30 Alcoholic cirrhosis of liver without ascites (principal)
CPT/HCPCS: 76705

== ENCOUNTER → 2024-04-18 | Outpatient (CLI) | payer OTHER | END | disposition home or self-care (01) | LOC: RADNMMAIN 08:15 | PROVIDERS: ATTEND Internal Medicine Cardiovascular Disease | DX: I63.9 Cerebral infarction, unspecified (principal) ==

== ENCOUNTER → 2024-05-07 | Outpatient (CLI) | payer OTHER ==
[2024-05-07 16:13] VITALS: BP 149/84; PULSE 103; RESP 16; TEMP 98.4
--- NOTE | 2024-05-07 16:38 | P.SLEEP ---
History of Present Illness H&P Date: 05/07/24 Chief Complaint: MICHAEL 63-year-old male patient is coming in for sleep apnea evaluation. The patient has loud snoringThe patient has been diagnosed having obstructive sleep apnea in the past. Nevertheless, due to lack of insurance, the patient was unable to maintain his CPAP machine and for that reason,Is coming in for reevaluation. Patient has an extensive psychiatric history. Has history of major depression and suicidal ideation and the patient has had multiple suicidal attempts in the past And he has been admitted to the psychiatry unit. He also has history of alcohol abuse disorder. He also reported previous history of CVA/TIA.The patient living with his ex-. He has been told that he snores loudly he quits breathing in the middle of the night and this obviously raises the concern for obstructive sleep apnea. His current [place] score is a 1. He sleeps on his side. No recent weight gain. Occasional leg kicks and restlessness. No sleep paralysis. No hallucinations. No cataplexy. No nocturnal seizures. No other new complaints otherwise for now. Review of Systems Constitutional: Reports daytime sleepiness, Reports fatigue Eyes: denies as per HPI, denies blurred vision, denies bulging eye, denies decreased vision, denies diplopia, denies discharge, denies dry eye, denies irritation, denies itching, denies pain, denies photophobia, denies loss of peripheral vision, denies loss of vision, denies tunnel vision/blind spots Ears: deny: decreased hearing, ear discharge, earache, tinnitus Ears, nose, mouth and throat: Reports as per HPI Breasts: absent: as per HPI, gynecomastia Cardiovascular: Reports as per HPI Respiratory: Reports snoring Gastrointestinal: Reports as per HPI Genitourinary: Reports as per HPI Musculoskeletal: Reports as per HPI Musculoskeletal: absent: ankle pain, ankle stiffness, ankle swelling, as per HPI, elbow pain, elbow stiffness, elbow swelling, foot pain, foot stiffness, foot swelling, hand pain, hand stiffness, hand swelling, hip pain, hip stiffness, hip swelling, knee pain, knee stiffness, knee swelling, shoulder pain, shoulder stiffness, shoulder swelling, wrist pain, wrist stiffness, wrist swelling Integumentary: Reports as per HPI Neurological: Reports weakness Psychiatric: Reports depression, Reports hypersomnia (Is likely that alcoholic is like major depression), Reports sleep disturbances Endocrine: Reports as per HPI, Reports fatigue (Was incarcerated piece of equipment as) Hematologic/Lymphatic: Reports as per HPI Allergic/Immunologic: Reports as per HPI Past Medical History Past Medical History: Coronary Artery Disease (CAD), CVA/TIA, Hyperlipidemia, Liver Disease, Skin Disorder History of Any Multi-Drug Resistant Organisms: None Reported Past Surgical History: Hernia Repair, Orthopedic Surgery Additional Past Surgical History / Comment(s): rt arm, lt wrist. left forearm incisional ports Past Anesthesia/Blood Transfusion Reactions: No Reported Reaction Past Psychological History: Anxiety, Bipolar, Depression, Schizophrenia - Past Family History family Family Medical History: Hyperlipidemia Father Family Medical History: Cancer, Diabetes Mellitus Additional Family Medical History / Comment(s): CHUNG HX IS CANCER, DIABETES, AGE 66. SISTER AGE 59 - CIRRHOSIS, BROTHER PASSED AT AGE 64 - OHS AND CANCER Medications and Allergies Home Medications Medication Instructions Recorded Confirmed Type Levothyroxine Sodium [Synthroid] 50 mcg PO DAILY 12/06/23 03/12/24 History Aspirin 81 mg PO DAILY #30 tab 12/07/23 03/12/24 Rx Atorvastatin [Lipitor] 40 mg PO DAILY #30 tab 12/07/23 03/12/24 Rx Clopidogrel [Plavix] 75 mg PO DAILY #21 tab 12/07/23 03/12/24 Rx Multivitamins, Thera [Multivitamin 1 tab PO DAILY 12/07/23 03/12/24 History (formulary)] Allergies Allergy/AdvReac Type Severity Reaction Status Date / Time No Known Allergies Allergy Verified 03/12/24 09:29 Physical Exam Vitals: Vital Signs Temp Pulse Resp BP Pulse Ox 05/07/24 16:10 98.4 F 103 H 16 149/84 103 H Intake and Output 05/07/24 05/07/24 05/07/24 06:59 14:59 22:59 Other: Weight 93.213 kg The patient appeared well nourished and normally developed. Vital signs as documented. Head exam is unremarkable. No scleral icterus or corneal arcus noted. Neck is without jugular venous distension, thyromegaly, or carotid bruits. Carotid upstrokes are brisk bilaterally. Lungs are clear to auscultation and percussion. Cardiac exam reveals the PMI to be normally sized and situated. Rhythm is regular. First and second heart sounds normal. No murmurs, rubs or gallops. Abdominal exam reveals normal bowel sounds, no masses, no organomegaly and no aortic enlargement. Extremities are nonedematous and both femoral and pedal pulses are normal. Examination of the skin revealed no evidence of significant rashes, suspicious appearing nevi or other concerning lesions. Neurologically, the patient is awake and alert and the patient does not have any focal neurological deficit. Cranial nerves are essentially intact. Assessment and Plan Plan: Obstructive sleep apnea. This patient gives history of obstructive sleep apnea and the patient was offered CPAP therapy many years back and he ended up returning the machine due to financial reasons. Know that I do not have any official documentation of his original sleep study and the exact circumstances of the diagnosis and treatment. For now, he does have some features obstructive sleep apnea. Nevertheless, his functionality has been preserved and the patient's [place] score is 1 indicating no major hypersomnia or sleepiness. No recent weight gain. Patient is very much interested in reevaluation Coronary artery disease History of CVA with some residual right-sided weakness Glucoma Chronic anxiety Hyperlipidemia Hypothyroidism Plan I will suggest repeating the patient's polysomnography to evaluate the presence and severity of sleep apnea. Based on that, we can make decisions whether treatment is needed for this patient. I do not have any documentation that his previous sleep study. I am going to set up this patient for another polysomnography and based on that we will make further recommendations. Medical sleep hygiene measures. Maintain regular sleep schedule. Will continue to follow. Sleep Note - Sleep Data ESS Total: 1 - Sleep Note Sleep Note: Temperature: 98.4 F Pulse Rate: 103 Respiratory Rate: 16 Blood Pressure: 149/84 SpO2: 103 Height: 5 ft 9 in Weight: 93.213 kg BMI: Neck Circumference: 17.7
== END ==
LOC: 3 N SLEEP 14:52
PROVIDERS: ATTEND Internal Medicine Critical Care Medicine
CPT/HCPCS: 99211

== ENCOUNTER 2024-05-19 18:40 | Outpatient (CLI) | payer OTHER ==
--- NOTE | 2024-05-26 16:19 | P.PCN ---
Date of Procedure: 05/19/24 Operative Findings: Polysomnography report Date of service 05/19/2024 History physical findings 63-year-old male patient is coming in for sleep apnea evaluation. The patient has loud snoringThe patient has been diagnosed having obstructive sleep apnea in the past. Nevertheless, due to lack of insurance, the patient was unable to maintain his CPAP machine and for that reason,Is coming in for reevaluation. Patient has an extensive psychiatric history. Has history of major depression and suicidal ideation and the patient has had multiple suicidal attempts in the past And he has been admitted to the psychiatry unit. He also has history of alcohol abuse disorder. He also reported previous history of CVA/TIA.The patient living with his ex-. He has been told that he snores loudly he quits breathing in the middle of the night and this obviously raises the concern for obstructive sleep apnea. His current [place] score is a 1. He sleeps on his side. No recent weight gain. Occasional leg kicks and restlessness. No sleep paralysis. No hallucinations. No cataplexy. No nocturnal seizures. No other new complaints otherwise for now. Physical findings weight is 205 with a BMI of 30.2 Technical description The patient was studied using a standard complex polysomnography protocol that included recording of the Lead II EKG, Central, occipital and frontal EEG, right and left outer canthus EOG, submental EMG, right and left anterior tibialis EMG, respiratory airflow by thermocouple and or pressure/flow transducer, respiratory efforts by abdominal and thoracic PVDF belts, oxygen saturation by cable oximetry. Position by observation synchronized the PSG. Equipment used: [employer]. Sleep architecture The total recording time was 437.5 minutes. The total sleep time was 4 to 2.5 minutes with a 24.5 minutes of wake after sleep onset and the resulting sleep efficiency was 92%. Latency to sleep onset was 10.5 minutes. The latency to REM sleep was 142.0 minutes. The sleep architecture was categorized by 28.0% stage I, 41.5% stage II, 0% stage III, 30.6% REM sleep. The total arousal index was 65 Respiratory analysis A total of 462 obstructive events were present of which 90 obstructive apneas, 0 mixed apneas and 69 with obstructive hypopneas. The resulting AHI was 64.8. There are also 4 central apneas with a central apnea index of 0.6. The patient had worsening of the disease severity during REM sleep Oxygenation analysis A baseline pulse ox of 91% while awake. Lowest oxygen saturation was 59% during REM sleep. Patient spent approximately 4 minutes of sleep time at a pulse ox of below 89% Sleep continuity summary Total of 436 arousals with an index of 65. Respiratory arousal index was 36.4 Periodic limb movement activity A total of 229 periodic limb movement activity with an index of 34.9. No arousals. Cardiac summary Average heart rate was 82 with a minimum heart rate of 76 and a maximum heart rate of 87 Assessment Severe symptomatic MICHAEL with an AHI of 64.8, slightly worse during REM sleep Severe nocturnal oxygen desaturation with a minimum pulse ox of 59% Abnormal sleep architecture with over representation of stage I sleep and diminished delta wave. Sleep fragmentation and a high arousal index periodic limb movements, not associated with arousals Known history of obstructive sleep apnea Coronary artery disease CVA CVA, with right-sided weakness Glaucoma Hypothyroidism Hyperlipidemia Chronic anxiety Plan Will set up this patient for a CPAP titration.
== END 2024-05-20 05:20 | disposition home or self-care (01) ==
LOC: 3 N SLEEP 18:40
PROVIDERS: ATTEND Internal Medicine Critical Care Medicine
DX: G47.33 Obstructive sleep apnea (adult) (pediatric) (principal); G47.36 Sleep related hypoventilation in conditions classified elsewhere; G47.52 REM sleep behavior disorder; G47.61 Periodic limb movement disorder; G47.8 Other sleep disorders; I25.10 Atherosclerotic heart disease of native coronary artery without angina pectoris; H40.9 Unspecified glaucoma; E03.9 Hypothyroidism, unspecified; E78.5 Hyperlipidemia, unspecified; F41.9 Anxiety disorder, unspecified; I63.89 Other cerebral infarction; G83.21 Monoplegia of upper limb affecting right dominant side; Z79.890 Hormone replacement therapy; Z79.02 Long term (current) use of antithrombotics/antiplatelets
CPT/HCPCS: 95810

== ENCOUNTER 2024-06-03 19:42 | Outpatient (CLI) | payer OTHER ==
--- NOTE | 2024-06-04 23:07 | P.PCN ---
Date of Procedure: 06/03/24 Operative Findings: CPAP titration study Date of service is 06/03/2024 History physical findings 63-year-old male patient is coming in for sleep apnea evaluation. The patient has loud snoring. The patient has been diagnosed having obstructive sleep apnea in the past. Nevertheless, due to lack of insurance, the patient was unable to maintain his CPAP machine and for that reason, he came . Patient has an extensive psychiatric history. Has history of major depression and suicidal ideation and the patient has had multiple suicidal attempts in the past And he has been admitted to the psychiatry unit. He also has history of alcohol abuse disorder. He also reported previous history of CVA/TIA.The patient living with his ex-. He has been told that he snores loudly he quits breathing in the middle of the night and this obviously raises the concern for obstructive sleep apnea. His current [place] score is a 1. He sleeps on his side. No recent weight gain. Occasional leg kicks and restlessness. No sleep paralysis. No hallucinations. No cataplexy. No nocturnal seizures. No other new complaints otherwise for now. The patient underwent a polysomnography on 05/19/2024 and the patient was found to have severe obstructive sleep apnea with an AHI of 64.8 and the patient also encountered significant nocturnal oxygen desaturations with a minimum pulse ox of 59% during REM sleep. Based on that, the patient is coming in to undergo a CPAP titration Physical findings weight is 205 with a BMI of 30.2 Technical description The patient was studied using a standard complex polysomnography protocol that included recording of the Lead II EKG, Central, occipital and frontal EEG, right and left outer canthus EOG, submental EMG, right and left anterior tibialis EMG, respiratory airflow by thermocouple and or pressure/flow transducer, respiratory efforts by abdominal and thoracic PVDF belts, oxygen saturation by cable oximetry. Position by observation synchronized the PSG. Equipment used: [employer]. Stepwise CPAP titration was done to limit all obstructive respiratory events. Sleep characteristics The total recording duration was 405.5 minutes. The total sleep time was 350 minutes and overall sleep efficiency was 86.3%. The latency to sleep onset was 45 minutes. The wake after sleep onset time was 10.5 minutes. The sleep architecture was characterized by 2.3% stage I, 66% stage II, 0% stage III and 31.7% REM sleep. The total arousal index was 6.5 CPAP titration summary The patient was started on CPAP therapy initially at a pressure of 5 cm of water pressure was gradually increased maintenance of 1 cm to reach a maximum CPAP pressure of 11 cm of water. I carefully reviewed the CPAP titration taken, the patient sleep stage and body position. Noted the study was conducted while the patient being in REM and non-REM sleep. The patient was also studied in supine and nonsupine body position. There was adequate elimination of the obstructive respiratory events without any significant residual obstructive apneas or hypopneas. In fact, the various CPAP pressures utilized were effective. I am going to start the patient on APAP mode and set up the patient to a minimum pressure of 5 and a maximum pressure of 11. Noted the patient oxygenation imp roved and there was no significant desaturations encountered throughout the titration. Arousable events The patient had a total of 38 arousals with an index of 6.5. Respiratory arousal index was 0.9 Periodic movement events A total of 234 periodic limb movement activity with an index of 40.1. No significant arousals related to periodic limb movement activity. Heart rate analysis The average heart rate was 83 with a minimum heart rate of 79 and a maximum heart rate of 87 Assessment Severe symptomatic MICHAEL with an AHI of 64.8, slightly worse during REM sleep, and the patient underwent a successful CPAP titration and the patient is going to be started on APAP therapy Severe nocturnal oxygen desaturation with a minimum pulse ox of 59%, improved with CPAP therapy REM rebound related to CPAP therapy Sleep fragmentation and a high arousal index, improved with CPAP therapy periodic limb movements, not associated with arousals Known history of obstructive sleep apnea Coronary artery disease CVA CVA, with right-sided weakness Glaucoma Hypothyroidism Hyperlipidemia Chronic anxiety Plan Initiate CPAP therapy and the patient will be offered an APAP machine at pressures of 5/11 cm of water. The patient is going to be offered a [employer] F20 fullface mask medium size.. Optimize sleep hygiene measures. See me back in the office in 30 to 90 days to assess clinical response and compliancy.
== END 2024-06-04 05:45 | disposition home or self-care (01) ==
LOC: 3 N SLEEP 19:42
PROVIDERS: ATTEND Internal Medicine Critical Care Medicine
DX: G47.33 Obstructive sleep apnea (adult) (pediatric) (principal); G47.52 REM sleep behavior disorder; G47.36 Sleep related hypoventilation in conditions classified elsewhere; G47.8 Other sleep disorders; G47.61 Periodic limb movement disorder; I25.10 Atherosclerotic heart disease of native coronary artery without angina pectoris; E03.9 Hypothyroidism, unspecified; E78.5 Hyperlipidemia, unspecified; F41.9 Anxiety disorder, unspecified; H40.9 Unspecified glaucoma; I63.89 Other cerebral infarction; G83.21 Monoplegia of upper limb affecting right dominant side; Z79.890 Hormone replacement therapy; Z79.02 Long term (current) use of antithrombotics/antiplatelets
CPT/HCPCS: 95811